=== PATIENT | female | born 1950 | race Caucasian/White ===

== ENCOUNTER → 2017-12-29 10:19 | Outpatient (CLI) | payer MEDICARE, OTHER, SELFPAY ==
[2017-12-29 12:18] LABS: Free T3 2.5 pg/mL (2.18-3.98); T4 Free Direct 0.88 ng/dL (0.76-1.46); Thyroid Stim Hormone (TSH) 6.57 uIU/mL (0.358-3.74)
== END ==
PROVIDERS: Family Provider Internal Medicine; PCP Internal Medicine; Referring Provider Nurse Practitioner; Visit Provider Nurse Practitioner
DX: E07.9 Disorder of thyroid, unspecified (principal)
CPT/HCPCS: 36415; 84439; 84443; 84481

== ENCOUNTER → 2018-05-27 11:00 | Outpatient (CLI) | payer MEDICARE, OTHER, SELFPAY ==
[2018-01-05 10:31] VITALS: BMI 34.0
[2018-05-27 12:51] LABS: Free T3 2.4 pg/mL (2.18-3.98); T4 Free Direct 1.04 ng/dL (0.76-1.46); Thyroid Stim Hormone (TSH) 2.13 uIU/mL (0.358-3.74)
== END ==
PROVIDERS: Family Provider Internal Medicine; PCP Internal Medicine; Referring Provider Nurse Practitioner; Visit Provider Nurse Practitioner
DX: E03.9 Hypothyroidism, unspecified (principal); E07.9 Disorder of thyroid, unspecified
CPT/HCPCS: 36415; 84439; 84443; 84481

== ENCOUNTER → 2019-10-01 09:34 | Outpatient (CLI) | payer MEDICARE, OTHER, SELFPAY ==
[2019-10-01 09:05] VITALS: BMI 34.1
[2019-10-01 12:41] LABS: ALB/GLOB Ratio 0.9 RATIO (0.9-2.4); AST(SGOT) 22 U/L (15-37); Alanine Aminotransfer ALT/SGPT 28 U/L (13-56); Alkaline Phosphatase 82 U/L (45-117); Anion Gap 6 (5-15); BUN 14 mg/dL (7-18); Chloride 101 mmol/L (98-107); Cholesterol 228 mg/dL (200); Creatinine, Serum 0.82 mg/dL (0.55-1.02); EST Glomerular Filtration Rate 73 mL/min (>60); Est Glom Filt Rate - Afr Amer 89 mL/min (>60); Globulin 4.3 g/dL (2.2-4.2); Glucose 221 mg/dL (74-106); High Density Lipoprotein 49 mg/dL; Potassium 4.4 mmol/L (3.5-5.1); Protein, Total 8.3 g/dL (6.4-8.2); Sodium Level 134 mmol/L (136-145); T4 Free Direct 1.09 ng/dL (0.76-1.46); Thyroid Stim Hormone (TSH) 3.47 uIU/mL (0.358-3.74); Triglycerides 280 mg/dL; Very Low Density Lipoprotein 56 mg/dL (5-40)
[2019-10-03 13:45] LABS: Vitamin D,25 Hydroxy 32.1 ng/mL
== END ==
PROVIDERS: PCP Internal Medicine; Referring Provider Internal Medicine Endocrinology, Diabetes & Metabolism; Visit Provider Internal Medicine Endocrinology, Diabetes & Metabolism
DX: E07.9 Disorder of thyroid, unspecified (principal); E03.8 Other specified hypothyroidism; E06.3 Autoimmune thyroiditis; E55.9 Vitamin D deficiency, unspecified; I10 Essential (primary) hypertension; Z82.49 Family history of ischemic heart disease and other diseases of the circulatory system
CPT/HCPCS: 36415; 80053; 80061; 82306; 84439; 84443

== ENCOUNTER → 2020-08-29 11:02 | Outpatient (CLI) | payer MEDICARE, OTHER, SELFPAY ==
[2020-08-29 10:26] VITALS: BMI 34.0
[2020-08-29 12:16] LABS: Absolute Lymphocyte Count 1.29 X10^3/uL (0.83-4.51); Absolute Neutrophil Count 13.3 X10^3/uL (2.0-7.7); Basophil# 0.07 X10^3/uL; Basophil% 0.5 % (0-1); Eosinophil# 0.09 X10^3/uL; Eosinophils% 0.6 % (0-5); Hematocrit 45.7 % (37-47); Hemoglobin 14.6 g/dL (12.0-15.0); Lymphocyte # 1.29 X10^3/ul (0.83-4.51); Lymphocyte % 8.3 % (19-41); Mean Corp Hgb Conc 31.9 g/dL (32-36); Mean Corpuscular Volume 87.7 fL (81-99); Mean Platelet Vol. 11.7 fl (6.2-12.0); Monocyte# 0.69 X10^3/uL; Monocyte% 4.4 % (0-10); NRBC Flagged by Analyzer 0 % (0-5); Neutrophil % 85.6 % (47-70); POSITIVE COUNT YES; RBC Distribution Width CV 15.4 % (11.6-14.6); RBC Distribution Width SD 49.5 fl (35.1-43.9); Red Blood Count 5.21 M/mm3 (4.2-5.4); White Blood Count 15.5 K/mm3 (4.4-11.0)
[2020-08-29 12:31] LABS: Differential Indicated SCAN CRITERIA MET
[2020-08-29 12:56] LABS: AST(SGOT) 21 U/L (15-37); Alanine Aminotransfer ALT/SGPT 23 U/L (13-56); Albumin, Serum 4.1 g/dL (3.2-5.0); Alkaline Phosphatase 82 U/L (45-117); Anion Gap 7 (5-15); BUN 12 mg/dL (7-18); BUN/Creat Ratio 14.8 RATIO (10-20); Calcium,Total 9.5 mg/dL (8.5-10.1); Chloride 102 mmol/L (98-107); Creatinine, Serum 0.81 mg/dL (0.55-1.02); EST Glomerular Filtration Rate 74 mL/min (>60); Est Glom Filt Rate - Afr Amer 90 mL/min (>60); Globulin 4.1 g/dL (2.2-4.2); Glucose 139 mg/dL (74-106); Potassium 4.4 mmol/L (3.5-5.1); Protein, Total 8.2 g/dL (6.4-8.2); Sodium Level 136 mmol/L (136-145); T4 Free Direct 1.16 ng/dL (0.76-1.46); Thyroid Stim Hormone (TSH) 2.53 uIU/mL (0.358-3.74)
[2020-08-29 13:09] LABS: Platelet Estimate MKD INC (ADEQ); Red Cell Morphology NORM C+C NORMAL (NORM C&C)
[2020-08-29 13:20] LABS: Hemoglobin A1c 7.3 % (3.8-5.6)
[2020-08-29 13:30] LABS: Platelet Count 1113 K/mm3 (150-450)
[2020-09-01 12:38] LABS: Pathologist Review Reviewed
== END ==
PROVIDERS: PCP Internal Medicine; Referring Provider Internal Medicine Endocrinology, Diabetes & Metabolism; Visit Provider Internal Medicine Endocrinology, Diabetes & Metabolism
DX: E03.8 Other specified hypothyroidism (principal); E06.3 Autoimmune thyroiditis; R30.0 Dysuria; E10.51 Type 1 diabetes mellitus with diabetic peripheral angiopathy without gangrene; I70.209 Unspecified atherosclerosis of native arteries of extremities, unspecified extremity
CPT/HCPCS: 36415; 80053; 83036; 84439; 84443; 85025; 87086; 87088

== ENCOUNTER → 2020-09-05 07:19 | Outpatient (CLI) | payer MEDICARE, OTHER, SELFPAY ==
[2020-09-03 09:09] VITALS: BMI 31.1
[2020-09-03 16:55] VITALS: BMI 31.1
--- NOTE | 2020-09-05 07:19 | US_ITS ---
STUDY: ABDOMINAL ULTRASOUND REASON FOR EXAM: Female, 69 years old. LEUKOCYTOSIS TECHNIQUE: Transabdominal ultrasound was performed with real-time and static aguielra scale imaging. TECHNICAL QUALITY: Adequate. COMPARISON: None. FINDINGS: Liver: The liver measures 17.4 cm. There is increased echogenicity consistent with fatty infiltration. The bile ducts are within normal limits. There is hepatic color flow. The direction of portal flow is hepatopetal. There is no demonstrated mass lesion. Portal vein measurement: Gallbladder: The patient is status post cholecystectomy. Common Bile Duct (C.B.D.): The common bile duct measures 4.7 mm. Pancreas: Normal size of the head, body and tail of the pancreas. There is normal echogenicity of the pancreas. There is no demonstrated pancreatic mass or cyst. Spleen: There is splenomegaly. The spleen measures 14.6 cm. Right Kidney: Normal size of the right kidney. The right kidney measures 11.6 x 5 x 4.1 cm. Normal renal cortex. The right cortex measures 1.7 cm. There is no demonstrated renal mass or cyst. There is no right hydronephrosis, there are nonobstructing 3 mm stones.. Left Kidney: Normal size of the left kidney. The left kidney measures 11.6 x 5.6 x 4.1 cm. Normal renal cortex. The left cortex measures 1.3 cm. There is no demonstrated renal mass or cyst. There is no left hydronephrosis, there are nonobstructing 2 and 3 mm stones.. Aorta: Tapers normally I.V.C.: The IVC is patent. There is no ascites. US/Abdomen Complete IMPRESSION: Fatty liver, no discrete lesion Nonspecific splenomegaly with granulomatous calcifications. Bilateral nonobstructing nephrolithiasis Previous cholecystectomy Electronically Signed: Larry Vera MD at 9:48 EDT , Service support ,
--- NOTE | 2020-09-05 07:19 | US_ITS ---
STUDY: ULTRASOUND OF THE FEMALE PELVIS - COMPLETE REASON FOR EXAM: Female, 69 years old. LEUKOCYTOSIS LMP: Unknown. TECHNIQUE: Transabdominal TECHNICAL QUALITY: Adequate. COMPARISON: None. FINDINGS: The uterus is anteverted and is in a midline position. The uterus measures 5.9 x 2.2 x 4.6 cm. Normal uterine cervix. The endometrium measures 3 mm in thickness, and is hyperechoic. There is no demonstrated endometrial mass. There is no demonstrated myometrial mass. I.U.D. - The patient does not have an I.U.D. Neither ovary visualized There is no fluid in the cul-de-sac. The pre void volume of the bladder was 368 ml. The post void volume of the bladder was less than 10 ml. Polycystic ovary disease: No. US/Pelvic (Non ) IMPRESSION: Sonographically normal uterus, and endometrium No suspicious adnexal mass or free fluid Electronically Signed: Larry Vera MD at 12:46 EDT , Service support ,
== END ==
PROVIDERS: PCP Specialist; Referring Provider Internal Medicine Medical Oncology; Visit Provider Internal Medicine Medical Oncology
DX: D47.3 Essential (hemorrhagic) thrombocythemia (principal); D72.829 Elevated white blood cell count, unspecified
CPT/HCPCS: 76700; 76856

== ENCOUNTER 2020-09-11 15:46 | Inpatient (IN) | payer MEDICARE, OTHER, SELFPAY ==
[2020-09-03 16:55] VITALS: BMI 31.1
[2020-09-11] VITALS (9 sets, daily range): BP systolic 142–187; BP diastolic 67–98; PULSE 78–91; RESP 14–18; TEMP 36.5–36.8; O2SAT 97–98; BMI 31.1; BMI 30.9
--- NOTE | 2020-09-11 16:31 | CT_ITS ---
STUDY: CT BRAIN WITHOUT CONTRAST REASON FOR EXAM: Female, 69 years old. headache RADIATION DOSAGE (If Supplied By Facility): CTDIvol = ( 38.43 ) mGy, DLP = ( 683.87 ) mGycm TECHNIQUE: Transaxial CT imaging of the brain was performed without administration of intravenous contrast material. Individualized dose optimization techniques were used for this CT. COMPARISON: No relevant priors. FINDINGS: Intracranial atherosclerosis. Normal soft tissue structures. Normal calvarium. There is mild cerebral atrophy with widening of the extra-axial spaces and ventricular dilatation. Normal white matter tracts of the cerebral hemispheres. Normal basal ganglia and thalami. Normal brainstem. Normal cerebellum. There is no intracranial hemorrhage. There are no findings of an acute ischemic infarction. Normal visualized paranasal sinuses. CT/Brain/Head without Contrast IMPRESSION: No acute disease Electronically Signed: Pradeep Park MD at 17:09 EDT , Service support ,
--- NOTE | 2020-09-11 16:32 | EKG12_ITS ---
Test Reason : WEAKNESS Blood Pressure : / mmHG Vent. Rate : 084 BPM Atrial Rate : 084 BPM P-R Int : 176 ms QRS Dur : 092 ms QT Int : 388 ms P-R-T Axes : 064 054 067 degrees QTc Int : 458 ms Normal sinus rhythm Septal infarct , age undetermined Abnormal ECG Confirmed by JENNIFER STARKS, DARCY ([id number]), editorial clerk PARVIZ DELONG ([id number]) on 09/12/2020 1:03:24 PM Referred By: FAYE Confirmed By:DARCY RODRIGUEZ MD
--- NOTE | 2020-09-11 16:34 | NURSING ---
NO OLD EKGS
[2020-09-11 16:52] LABS: Absolute Lymphocyte Count 0.93 X10^3/uL (0.83-4.51); Absolute Neutrophil Count 12.2 X10^3/uL (2.0-7.7); Basophil# 0.06 X10^3/uL; Basophil% 0.4 % (0-1); Eosinophil# 0.08 X10^3/uL; Eosinophils% 0.6 % (0-5); Hematocrit 42.8 % (37-47); Lymphocyte # 0.93 X10^3/ul (0.83-4.51); Lymphocyte % 6.6 % (19-41); Mean Corp Hgb Conc 32.7 g/dL (32-36); Mean Corpuscular Hgb 27.9 pg (27.0-32.0); Mean Corpuscular Volume 85.4 fL (81-99); Mean Platelet Vol. 11.5 fl (6.2-12.0); Monocyte% 5.6 % (0-10); NRBC Flagged by Analyzer 0 % (0-5); Neutrophil # 12.23 X10^3/uL (2.7-7.7); Neutrophil % 86.3 % (47-70); POSITIVE COUNT YES; POSITIVE MORPHOLOGY YES; RBC Distribution Width CV 15.4 % (11.6-14.6); RBC Distribution Width SD 47.9 fl (35.1-43.9); Red Blood Count 5.01 M/mm3 (4.2-5.4); White Blood Count 14.2 K/mm3 (4.4-11.0)
--- NOTE | 2020-09-11 16:52 | EX.ED.DYSGE1 ---
HPI History of Present Illness Chief Complaint: Weakness Informant: patient Onset/Context/Timing Onset: Days Context: Gradual Onset Current Severity: Moderate Maximum Severity: Moderate Narrative Narrative: Patient presents with generalized weakness and not feeling well. Patient states of the last month she had multiple UTIs. She has been on Cipro twice and is currently on Pen-Vee K. She does have a few days left of this antibiotic. Patient states she was recently seen by Dr. Robin for her hypothyroidism. Labs at that time revealed low platelets and a high white count. She was seen by Dr. Hurst from hematology. She did have some blood work and ultrasounds performed. She is scheduled for follow-up next week. Patient states today she does feels ill but has a hard time explaining what specifically does not feel right. She states at times she will not feel right in the head and her arms will feel tingly. She denies chest pain or shortness of breath. She had some mild nausea today but no vomiting or diarrhea. [facility] Medical History Diabetes type 2, controlled Elbow fracture Facial bone fracture Heart murmur HTN (hypertension) Hyperlipidemia Hypothyroidism Knee fracture Neuropathy Obesity Psoriasis Thrombocytosis Home Medications aspirin 81 mg tablet,delayed release 81 mg PO DAILY 01/05/18 [History Last Taken Unknown] enalapril maleate 10 mg tablet 10 mg PO DAILY 01/05/18 [History Last Taken Unknown] levothyroxine 50 mcg tablet See Rx Instructions PO .q week #138 tab 10/01/19 [Rx Last Taken Unknown] ergocalciferol (vitamin D2) 50 mcg (2,000 unit) capsule 50 mcg PO DAILY #1 cap 10/03/19 [Rx Last Taken Unknown] penicillin V potassium 250 mg tablet 250 mg PO BID #28 tab 09/01/20 [Rx Last Taken Unknown] calcitriol 3 mcg/gram topical ointment 1 applic TOPICAL BID 09/03/20 [History Last Taken Unknown] clobetasol 0.05 % lotion 1 applic TOPICAL DAILY 09/03/20 [History Last Taken Unknown] clobetasol 0.05 % shampoo 1 applic TOPICAL DAILY 09/03/20 [History Last Taken Unknown] halobetasol propionate 0.05 % topical cream 1 applic TOPICAL DAILY 09/03/20 [History Last Taken Unknown] Allergy/AdvReac Type Severity Reaction Status Date / Time codeine Allergy Severe Unknown Verified 09/11/20 15:51 metformin AdvReac Severe diarrhea Verified 09/11/20 15:51 Family History Grandmother Diabetes Father Heart disease High cholesterol Surgical History Hx of cholecystectomy Previous back surgery Social History Smoking Status: Never smoker second hand exposure: No alcohol intake: current alcohol intake frequency: a few times a month substance use type: does not use ROS ROS ED Constitutional Constitutional ED: Denies chills or fever(s) Eyes Eyes: Denies change in vision ENT ENT ED: Denies sore throat Cardiovascular Cardiovascular: Denies chest pain Respiratory/Chest Respiratory/Chest: Denies cough or dyspnea Gastrointestinal Gastrointestinal: Reports nausea; Denies abdominal pain, diarrhea or vomiting Genitourinary Genitourinary ED: Denies dysuria Musculoskeletal Musculoskeletal: Reports myalgias; Denies back pain Integumentary Denies rash Neurologic Neurologic: Denies headache(s) or weakness Psychiatric Psychiatric: Denies anxiety or depression Endocrine Endocrinology: Denies polydipsia or polyuria Allergic/Immunologic Allergic/Immunologic ED: Denies urticaria EXAM Physical Exam Const Vital Signs: 09/11/20 15:48 09/11/20 16:47 09/11/20 17:48 Temperature 97.7 F L Temperature Source Temporal Pulse Rate 86 83 Respiratory Rate 14 17 Respiratory Effort Normal Non-Labored Blood Pressure 183/98 H 187/76 H Blood Pressure Mean 126 113 Pulse Ox 97 97 Oxygen Delivery Method Room Air Room Air 09/11/20 19:19 09/11/20 19:47 Temperature Temperature Source Pulse Rate 78 78 Respiratory Rate 18 16 Respiratory Effort Blood Pressure 171/87 H 142/67 H Blood Pressure Mean 115 92 Pulse Ox 97 98 Oxygen Delivery Method Room Air Room Air Positive well nourished and well developed General Appearance ED: well developed HEENT Reports normocephalic and head/scalp atraumatic Eyes PERRL and EOMs intact bilaterally Neck supple Chest Wall inspection of chest normal and palpation of chest normal Resp normal respiratory effort and clear to auscultation bilaterally Cardio regular rate and regular rhythm Heart Sounds: murmur GI normal to inspection, nondistended, normoactive bowel sounds Palpation: soft Extremity normal to inspection Neuro oriented x3 and no sensory deficits noted Sensorium / Orientation: alert Motor Exam: strength 5/5 throughout Psych mental status grossly normal Skin no rashes or lesions noted MDM MDM MDM Narrative Medical decision making narrative: Blood work and EKG are initiated. Lab Data Attestation: I reviewed the patient's lab results. Labs: Laboratory Results - last 24 hr 09/11/20 09/11/20 09/11/20 16:24 16:40 16:40 WBC 14.2 H RBC 5.01 Hgb 14.0 Hct 42.8 MCV 85.4 MCH 27.9 MCHC 32.7 RDW Std Deviation 47.9 H RDW Coeff of Lucas 15.4 H Plt Count 1080 H* MPV 11.5 Immature Gran % (Auto) 0.500 Neut % (Auto) 86.3 H Lymph % (Auto) 6.6 L [place] % (Auto) 5.6 Eos % (Auto) 0.6 Baso % (Auto) 0.4 Absolute Neuts (auto) 12.2 H Absolute Lymphs (auto) 0.93 Nucleated RBC % 0 Differential Comment SCANNED Diff Path Review May foll Plt Morphology Comment GIANT PT 14.3 INR 1.2 APTT 35.5 Sodium Potassium Chloride Carbon Dioxide Anion Gap BUN Creatinine Estim Creat Clear Calc Est GFR (MDRD) Af Amer Est GFR (MDRD) Non-Af BUN/Creatinine Ratio Glucose Calcium Total Bilirubin Direct Bilirubin AST ALT Alkaline Phosphatase Total Protein Albumin Globulin TSH Urine Color Yellow Urine Clarity Clear Urine pH 6.0 Ur Specific [place] 1.010 Urine Protein Negative Urine Glucose (UA) Normal Urine Ketones 5 H Urine Occult Blood Negative Urine Nitrite Negative Urine Bilirubin Negative Urine Urobilinogen Normal Ur Leukocyte Esterase 100 H Urine RBC 0 SEEN Urine WBC 5-10 SEEN Ur Squamous Epith Cells 0-5 SEEN Urine Bacteria 0 SEEN Urine Mucus 0 SEEN 09/11/20 16:40 WBC RBC Hgb Hct MCV MCH MCHC RDW Std Deviation RDW Coeff of Lucas Plt Count MPV Immature Gran % (Auto) Neut % (Auto) Lymph % (Auto) [place] % (Auto) Eos % (Auto) Baso % (Auto) Absolute Neuts (auto) Absolute Lymphs (auto) Nucleated RBC % Differential Comment Diff Path Review Plt Morphology Comment PT INR APTT Sodium 129 L Potassium 4.1 Chloride 99 Carbon Dioxide 24.0 Anion Gap 6 BUN 13 Creatinine 0.87 Estim Creat Clear Calc 60.18 Est GFR (MDRD) Af Amer 83 Est GFR (MDRD) Non-Af 69 BUN/Creatinine Ratio 15.0 Glucose 145 H Calcium 9.1 Total Bilirubin 0.40 Direct Bilirubin 0.14 AST 22 ALT 23 Alkaline Phosphatase 72 Total Protein 8.0 Albumin 4.1 Globulin 3.9 TSH 2.76 Urine Color Urine Clarity Urine pH Ur Specific [place] Urine Protein Urine Glucose (UA) Urine Ketones Urine Occult Blood Urine Nitrite Urine Bilirubin Urine Urobilinogen Ur Leukocyte Esterase Urine RBC Urine WBC Ur Squamous Epith Cells Urine Bacteria Urine Mucus Radiography Diagnostic Testing: Radiology Impression Brain CT 09/11/20 16:31 IMPRESSION: No acute disease Electronically Signed: Pradeep Park MD at 17:09 EDT , Service support , EKG Initial EKG: Attestation: I personally reviewed and interpreted this EKG as follows: Interpretation: Sinus Rhythm (Sinus at 84 with no acute ischemia.) Treatment and Re-Evaluation Comments:: On repeat evaluation patient's blood pressure remained elevated. Test results are discussed with her. With her drop in sodium she was given a liter of IV fluid and a dose of labetalol for blood pressure control. On repeat examination nursing states that patient just became very shaky. She had just eaten and her blood sugar is 200. Blood pressure is climbing again. At this time patient does not feel safe going home. She feels weak and shaky all over. I will speak with hospitalist regarding admission. I did speak with hematology regarding her continued abnormal labs. They stated that other than ensuring she is taking baby aspirin they had no other recommendations. Discharge Plan Triage Chief Complaint: Weakness ED Provider: Gerri Merino Dx/Rx/DC Orders Clinical Impression: Generalized weakness Prescriptions: No Action enalapril maleate 10 mg tablet 10 mg PO DAILY RF: 0 aspirin 81 mg tablet,delayed release (DR/EC) 81 mg PO DAILY RF: 0 halobetasol propionate 0.05 % cream 1 applic topical DAILY RF: 0 clobetasol [Clobex] 0.05 % lotion 1 applic topical DAILY RF: 0 calcitriol 3 mcg/gram ointment 1 applic topical BID RF: 0 clobetasol 0.05 % shampoo 1 applic topical DAILY RF: 0 levothyroxine 50 mcg tablet See Rx Instructions PO .q week Qty: 138 RF: 3 ergocalciferol (vitamin D2) 50 mcg (2,000 unit) capsule 50 mcg PO DAILY Qty: 1 RF: 0 penicillin V potassium 250 mg tablet 250 mg PO BID Qty: 28 RF: 0 Referrals: Sabra Galeano [Other] Disposition Disposition: Acute Care Hospital [facility]
[2020-09-11 16:53] LABS: Bacteria 0 SEEN /hpf (None Seen); Mucous, Urine 0 SEEN /hpf (<or=2+); Red Blood Cells-Urine 0 SEEN /hpf (0-5)
[2020-09-11 17:02] LABS: Glucose, Dipstick Normal (Normal); Ketone-Dipstick 5 mg/dl (Negative); Leukocyte Esterase-Dipstick 100 /ul (Negative); Nitrite-Dipstick Negative (Negative); Occult Blood-Urine Negative /ul (Negative); Protein-Dipstick Negative (Negative); Urine Bilirubin Dipstick Negative (Negative); Urine Urobilinogen Normal (Normal)
[2020-09-11 17:05] LABS: Color, Urine Yellow (Yellow); Urine Clarity Clear (Clear)
[2020-09-11 17:08] LABS: Squamous Epithelial Cells - UA 0-5 SEEN /hpf (5-10); White Blood Cells 5-10 SEEN /hpf (0-5)
[2020-09-11 17:12] LABS: AST(SGOT) 22 U/L (15-37); Alanine Aminotransfer ALT/SGPT 23 U/L (13-56); Albumin, Serum 4.1 g/dL (3.2-5.0); Alkaline Phosphatase 72 U/L (45-117); Anion Gap 6 (5-15); BUN 13 mg/dL (7-18); Bilirubin, Direct 0.14 mg/dL (0.00-0.30); Calcium,Total 9.1 mg/dL (8.5-10.1); Chloride 99 mmol/L (98-107); Creatinine, Serum 0.87 mg/dL (0.55-1.02); EST Glomerular Filtration Rate 69 mL/min (>60); Est Glom Filt Rate - Afr Amer 83 mL/min (>60); Estimated Creatinine Clearance 60.18 ml/min; Globulin 3.9 g/dL (2.2-4.2); Glucose 145 mg/dL (74-106); Potassium 4.1 mmol/L (3.5-5.1); Sodium Level 129 mmol/L (136-145); Thyroid Stim Hormone (TSH) 2.76 uIU/mL (0.358-3.74)
[2020-09-11 17:29] LABS: International Normalized Ratio 1.2; Partial Thromboplast Time 35.5 Seconds (24.1-36.2); Prothrombin Time (Protime)PT. 14.3 SECONDS (11.7-14.9)
[2020-09-11 17:33] LABS: Differential Indicated SCAN CRITERIA MET; Platelet Count 1080 K/mm3 (150-450)
[2020-09-11 17:36] LABS: Differential Comment SCANNED
[2020-09-11 17:37] LABS: Platelet Morphology GIANT
[2020-09-11] MEDS: 0.9% Normal Saline 1,000 ML 999 ML IV (19:19)
[2020-09-11] MEDS: Labetalol (Prefilled) 20 MG/4 ML 10 MG IV (19:19)
[2020-09-11 20:11] LABS: Bedside Glucose 212 mg/dL (70-110)
--- NOTE | 2020-09-11 20:16 | HP.PCM.HOS_ITS ---
HPI - General General Date of Admission: 09/11/20 Date of Service: 09/11/20 Chief Complaint: Lightheadedness, dizziness, weakness, body aches. 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 Hurst, placed on ASA at that time with outpatient work-up pending with planned follow-up with onset worsening generalized fatigue, malaise, body aches in addition to lightheadedness and dizziness prompting ED evaluation. Work-up in the ED included T 97.7, heart rate 86, BP 183/98, respiratory rate 14, 97% room air, CBC with WC 14.2, hemoglobin 14, platelet 1080 with left shift, unremarkable coags, CMP w/ Na 129, glucose 145, UA not marked appearing, CT brai n with no acute intracranial findings, EKG with SR without acute evidence of ischemia. [facility] Medical History (Updated 09/11/20 @ 21:[address] Melania Corrales MD) Diabetes type 2, controlled Elbow fracture Facial bone fracture Heart murmur HTN (hypertension) Hyperlipidemia Hypothyroidism Knee fracture Neuropathy Obesity Psoriasis Thrombocytosis Home Medications aspirin 81 mg tablet,delayed release 81 mg PO DAILY 01/05/18 [History Last Taken 09/11/20] enalapril maleate 10 mg tablet 10 mg PO DAILY 01/05/18 [History Last Taken 09/11/20] levothyroxine 50 mcg tablet See Rx Instructions PO .q week #138 tab 10/01/19 [Rx Last Taken 09/11/20] ergocalciferol (vitamin D2) 50 mcg (2,000 unit) capsule 50 mcg PO DAILY #1 cap 10/03/19 [Rx Last Taken 09/10/20] penicillin V potassium 250 mg tablet 250 mg PO BID #28 tab 09/01/20 [Rx Last Taken 09/11/20] calcitriol 3 mcg/gram topical ointment 1 applic TOPICAL BID 09/03/20 [History Last Taken Unknown] clobetasol 0.05 % lotion 1 applic TOPICAL DAILY 09/03/20 [History Last Taken Unknown] clobetasol 0.05 % shampoo 1 applic TOPICAL DAILY 09/03/20 [History Last Taken Unknown] halobetasol propionate 0.05 % topical cream 1 applic TOPICAL DAILY 09/03/20 [History Last Taken Unknown] Allergy/AdvReac Type Severity Reaction Status Date / Time codeine Allergy Severe Unknown Verified 09/11/20 15:51 metformin AdvReac Severe diarrhea Verified 09/11/20 15:51 Family History (Updated 09/11/20 @ 21:[address] Melania Corrales MD) Grandmother Diabetes Father Heart disease High cholesterol Mother Heart disease Surgical History (Updated 09/11/20 @ 21:[address] Melania Corrales MD) Hx of cholecystectomy Previous back surgery S/P tonsillectomy and adenoidectomy Social History (Updated 09/11/20 @ 21:[address] Melania Corrales MD) household members: spouse Smoking Status: Never smoker second hand exposure: No alcohol intake: current alcohol intake frequency: a few times a month details: Rare. substance use type: does not use ROS ROS Narrative Admission Review of Systems: CONSTITUTIONAL: No weight loss, fever, chills, + weakness or fatigue. HEENT: Eyes: No visual loss, blurred vision, double vision or yellow sclerae. Ears, Nose, Throat: No hearing loss, sneezing, congestion, runny nose or sore throat. SKIN: No rash or itching, lesions, wounds. CARDIOVASCULAR: + Near syncope, LH/Dizziness. No palpitations, edema, orthopnea, syncopal events. RESPIRATORY: No shortness of breath, cough or sputum, wheezing, hemoptysis. GASTROINTESTINAL: No anorexia, nausea, vomiting or diarrhea, abdominal pain, melena, BRBPR. GENITOURINARY: + Urinary frequency, No dysuria, retention. NEUROLOGICAL: + LH, dizziness, No headache, paralysis, ataxia, numbness or tingling in the extremities, focal weakness, change in bowel or bladder control, seizure. MUSCULOSKELETAL: + muscle, back pain, joint pain or stiffness. HEMATOLOGIC: No anemia, bleeding or bruising. LYMPHATICS: No enlarged nodes. No history of splenectomy. PSYCHIATRIC: No history of depression or anxiety. ENDOCRINOLOGIC: No reports of sweating, cold or heat intolerance. No polyuria or polydipsia. ALLERGIES: + history of asthma, hives, eczema or rhinitis. Vital Signs Vital Signs Vital Signs: 09/11/20 15:48 09/11/20 16:47 09/11/20 17:48 Temperature 97.7 F L Temperature Source Temporal Pulse Rate 86 83 Respiratory Rate 14 17 Respiratory Effort Normal Non-Labored Blood Pressure 183/98 H 187/76 H Blood Pressure Mean 126 113 Pulse Ox 97 97 Oxygen Delivery Method Room Air Room Air 09/11/20 19:19 09/11/20 19:47 09/11/20 20:10 Temperature Temperature Source Pulse Rate 78 78 91 Respiratory Rate 18 16 17 Respiratory Effort Blood Pressure 171/87 H 142/67 H 180/81 H Blood Pressure Mean 115 92 114 Pulse Ox 97 98 98 Oxygen Delivery Method Room Air Room Air Room Air Weight Weight: 198 lb 6.656 oz Body Mass Index (BMI) 31.1 Physical Exam Narrative Physical Examination: General: Awake, alert, oriented x 3 and cooperative, seated upright in the ED bed in no apparent distress, fatigued appearing. Skin: Normal color, normal turgor, no icterus, no cyanosis. HEENT: AT/NC, EOMI, PERRLA, moderately dry MM, no carotid bruits or JVD noted. Lungs: CTA bilaterally, moderate effort, mild decrease BL bases, no rales, ronchi or wheezing. Heart: Regular rate and rhythm; no gallop, rub audible. Abdomen: Soft, obesity, NTTP, ND, normal BS, no HSM. Extremities: No cyanosis, clubbing, or edema. Neurological: Patient awake, alert, oriented as noted, cognitive function intact; pupils equally reactive to light and accommodation, cranial nerves II- XII grossly normal, moving all 4 extremities, no focal deficits, strength moder ately to severely globally decreased. Psychiatric: Affect appears fatigued, no acute evidence of depressive or anxiety feelings. Results Lab / Micro Data Result Diagrams: 09/11/20 16:40 09/11/20 16:40 Labs: Laboratory Results - last 24 hr 09/11/20 09/11/20 09/11/20 16:24 16:40 16:40 WBC 14.2 H RBC 5.01 Hgb 14.0 Hct 42.8 MCV 85.4 MCH 27.9 MCHC 32.7 RDW Std Deviation 47.9 H RDW Coeff of Lucas 15.4 H Plt Count 1080 H* MPV 11.5 Immature Gran % (Auto) 0.500 Neut % (Auto) 86.3 H Lymph % (Auto) 6.6 L [place] % (Auto) 5.6 Eos % (Auto) 0.6 Baso % (Auto) 0.4 Absolute Neuts (auto) 12.2 H Absolute Lymphs (auto) 0.93 Nucleated RBC % 0 Differential Comment SCANNED Diff Path Review May foll Plt Morphology Comment GIANT PT 14.3 INR 1.2 APTT 35.5 Sodium Potassium Chloride Carbon Dioxide Anion Gap BUN Creatinine Estim Creat Clear Calc Est GFR (MDRD) Af Amer Est GFR (MDRD) Non-Af BUN/Creatinine Ratio Glucose Calcium Total Bilirubin Direct Bilirubin AST ALT Alkaline Phosphatase Total Protein Albumin Globulin TSH Urine Color Yellow Urine Clarity Clear Urine pH 6.0 Ur Specific [place] 1.010 Urine Protein Negative Urine Glucose (UA) Normal Urine Ketones 5 H Urine Occult Blood Negative Urine Nitrite Negative Urine Bilirubin Negative Urine Urobilinogen Normal Ur Leukocyte Esterase 100 H Urine RBC 0 SEEN Urine WBC 5-10 SEEN Ur Squamous Epith Cells 0-5 SEEN Urine Bacteria 0 SEEN Urine Mucus 0 SEEN POC Glucose 09/11/20 09/11/20 16:40 20:05 WBC RBC Hgb Hct MCV MCH MCHC RDW Std Deviation RDW Coeff of Lucas Plt Count MPV Immature Gran % (Auto) Neut % (Auto) Lymph % (Auto) [place] % (Auto) Eos % (Auto) Baso % (Auto) Absolute Neuts (auto) Absolute Lymphs (auto) Nucleated RBC % Differential Comment Diff Path Review Plt Morphology Comment PT INR APTT Sodium 129 L Potassium 4.1 Chloride 99 Carbon Dioxide 24.0 Anion Gap 6 BUN 13 Creatinine 0.87 Estim Creat Clear Calc 60.18 Est GFR (MDRD) Af Amer 83 Est GFR (MDRD) Non-Af 69 BUN/Creatinine Ratio 15.0 Glucose 145 H Calcium 9.1 Total Bilirubin 0.40 Direct Bilirubin 0.14 AST 22 ALT 23 Alkaline Phosphatase 72 Total Protein 8.0 Albumin 4.1 Globulin 3.9 TSH 2.76 Urine Color Urine Clarity Urine pH Ur Specific [place] Urine Protein Urine Glucose (UA) Urine Ketones Urine Occult Blood Urine Nitrite Urine Bilirubin Urine Urobilinogen Ur Leukocyte Esterase Urine RBC Urine WBC Ur Squamous Epith Cells Urine Bacteria Urine Mucus POC Glucose 212 H Radiology Impression Brain CT 09/11/20 16:31 IMPRESSION: No acute disease Electronically Signed: Pradeep Park MD at 17:09 EDT , Service support , Assessment & Plan Assessment/Plan (1) Near syncope: PLAN: The patient is a 69 y/o F w/ PMHx: Chronic thrombocytosis on ASA, Psorisis, HTN, HLD, Hypothyroidism, Diabetes mellitus type II, Obesity with recent history of frequent UTIs over the last month, currently on PENVK with 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 Hurst, placed on ASA at that time with outpatient work-up pending with planned follow-up with onset worsening generalized fatigue, malaise, body aches in addition to lightheadedness and dizziness prompting ED evaluation. 1. Lightheadedness, Dizziness: Unclear etiololgy, EKG in ED w/ sinus rhythm without evidence of acute ischemia. Will place on a monitored bed, will obtain cardiac enzymes series and CXR as not obtained upon presentation, maintain on fall precautions, obtain admission orthostatic and AM orthostatic VS and increase hydration if appropriate, will obtain ECHO. PT/OT consultation to ascertain stability and discharge needs. 2. Acute Hyponatremia, Unclear specific etiology: Unclear if hypovolemic, TSH normal, will obtain mag, urine FeNa, urine and serum Osmolality, continue judicious IVFs in the interim. As noted #1 will obtain Orthostatic VS. 3. Thrombocytopenia, Unclear etiology: Admission Plts 1080, unclear etiology, following with Oncology/hematology outpatient with ongoing work-up, continue ASA, and as noted DVT prophylaxis. 4. Recent UTI, Unclear Organism: Will complete recently initiated PENVK. UA not remarkable upon current presentation. 5. Hypertension: Continue home regimen including lisinopril, PRN hydralazine. 6. Hyperlipidemia: Not on statin, defer to outpatient. 7. Hypothyroidism: Secondary to Leobardo's thyroiditis, TSH normal upon admission, continue synthroid supplementation. 8. DVT prophylaxis: SCDs, lovenox. Charges/Coding Visit Charges OBSV E&M: 47546 Initial observation care L3
[2020-09-11 21:31] LABS: Magnesium 1.8 mg/dL (1.6-2.6)
--- NOTE | 2020-09-11 21:46 | ECHOD_ITS ---
Reason For Study: Near Syncope Procedure This was a 2D Doppler, Color Flow transthoracic echocardiogram. Exam performed portable in patient room. Left Ventricle Moderate concentric left ventricular hypertrophy. The estimated ejection fraction is EF 55-60 %. Right Ventricle Normal right ventricle. Atria The left atrium is mildly enlarged. Normal right atrium. Mitral Valve The mitral papillary muscle appears thickened and/or calcified. There is moderate mitral annular calcification. Moderate (2+) mitral valve insufficiency. Tricuspid Valve Normal tricuspid valve. Trivial tricuspid valve insufficiency. Aortic Valve Mild focal aortic valve calcification. Mild aortic stenosis. Pulmonic Valve The pulmonic valve is not well visualized. Great Vessels Normal aortic root. Pericardium/Pleural No pericardial effusion. MMode/2D Measurements & Calculations LVIDd: 3.9 cm IVSd: 1.6 cm LVOT diam: 2.0 cm LVIDs: 2.4 cm LVPWd: 1.4 cm LVOT area: 3.0 cm2 FS: 38.8 % Ao root diam: 3.2 cm LAV(MOD-bp): 71.0 ml LA A4 area: 20.6 cm2 LA dimension: 3.7 cm LAV(MOD-bp) Indexed: 35.3 ml/m2 LAV(MOD-sp2): 65.8 ml LAV(MOD-sp4): 63.7 ml RA A4 area: 15.0 cm2 Time Measurements MV dec time: 0.18 sec Doppler Measurements & Calculations MV E max jasbir: 158.1 cm/sec Lat Peak E' Jasbir: 6.3 cm/sec Med Peak E' Jasbir: 5.0 cm/sec MV A max jasbir: 183.2 cm/sec E/E' lat: 25.0 E/E' med: 31.4 MV E/A: 0.86 MV V2 max: 220.5 cm/sec MV P1/2t max jasbir: 194.5 cm/sec Ao V2 max: 214.3 cm/sec MV max P.5 mmHg MV P1/2t: 69.2 msec Ao max P.4 mmHg MV V2 mean: 132.7 cm/sec MV dec slope: 823.8 cm/sec2 Ao V2 mean: 146.1 cm/sec MV mean P.1 mmHg Ao mean P.7 mmHg MV V2 VTI: 52.1 cm MVA(P1/2t): 3.2 cm2 Ao V2 VTI: 46.3 cm MVA(VTI): 1.7 cm2 HARPER(I,D): 1.9 cm2 HARPER(V,D): 1.8 cm2 LV V1 max: 130.0 cm/sec MR max jasbir: 569.4 cm/sec SV(LVOT): 87.2 ml LV V1 max P.8 mmHg MR max P.7 mmHg LV V1 mean P.6 mmHg LV V1 mean: 88.9 cm/sec LV V1 VTI: 28.7 cm PA V2 max: 123.3 cm/sec TR max jasbir: 286.2 cm/sec TR max P.8 mmHg ECHO/Echo Complete Interpretation Summary The estimated ejection fraction is EF 55-60 %. Moderate to severe concentric LVH Heavily calcified papillary muscle Moderate MR Grade #2 Diastolic Dysfunction MIld ,HARPER 1.9 cm2, Trivial tricuspid valve insufficiency. Ordering Physician: Melania Corrales Referring Physician: Out Of Town Doctor Performed By: Cheko Mathis RCS
[2020-09-11] MEDS: 0.9% Normal Saline 1,000 ML 100 ML IV (22:16)
--- NOTE | 2020-09-11 22:46 | RAD_ITS ---
STUDY: X-RAY CHEST REASON FOR EXAM: Female, 69 years old. Dyspnea TECHNIQUE: PA and lateral views of the chest. COMPARISON: None. FINDINGS: The lungs are clear and expanded. There is no demonstrated pleural abnormality. Normal size heart. Normal mediastinum and raisa. Normal visualized pulmonary arteries. Normal visualized aortic arch and descending thoracic aorta. Normal visualized thoracic spine. Normal visualized ribs, clavicles, and shoulders. There is no demonstrated abnormality of the visualized soft tissue structures of the upper abdomen. RAD/Chest PA and Lateral IMPRESSION: Normal x-ray examination of the chest. Electronically Signed: Mauro Garrido MD at 9:47 EDT Tel , Service support ,
[2020-09-11 22:51] LABS: Osmolality, Serum 282 mOsm/KG (280-301)
[2020-09-11] MEDS: Penicillin Vk 250 MG Tablet PO (23:26)
[2020-09-11] MEDS: Acetaminophen 325 MG Tablet 650 MG PO (23:27)
[2020-09-11] MEDS: Insulin Lispro 100 UNIT/ML INSULN.PEN SC (23:32)
[2020-09-11 23:37] LABS: Troponin-I HS 387.6 pg/mL (3.0-53.7)
[2020-09-11 23:40] LABS: Bedside Glucose 155 mg/dL (70-110)
[2020-09-11 23:50] LABS: Urine Sodium 35 mmol/L (Not Establ.)
[2020-09-12] VITALS (26 sets, daily range): BP systolic 132–175; BP diastolic 60–89; PULSE 73–96; RESP 14–20; TEMP 36.6–36.9; O2SAT 93–100
[2020-09-12 00:02] LABS: Creatinine, Urine (random) < 13.00 mg/dL (NO RANGE EST.)
[2020-09-12 00:07] LABS: Osmolality, Urine 120 mOsm/KG
[2020-09-12] MEDS: Enoxaparin 100 MG/ML Syringe 90 MG SC ×2 (00:33→06:56)
[2020-09-12] MEDS: Aspirin 325 MG Tablet PO (00:33)
[2020-09-12 01:30] LABS: Troponin-I HS 453.8 pg/mL (3.0-53.7)
--- NOTE | 2020-09-12 05:55 | EKG12_ITS ---
Test Reason : AM EKG Blood Pressure : / mmHG Vent. Rate : 080 BPM Atrial Rate : 080 BPM P-R Int : 178 ms QRS Dur : 094 ms QT Int : 418 ms P-R-T Axes : 051 027 073 degrees QTc Int : 482 ms Normal sinus rhythm Septal infarct , age undetermined Abnormal ECG When compared with ECG of 11-SEP-2020 17:11, MANUAL COMPARISON REQUIRED, DATA IS UNCONFIRMED Confirmed by JENNIFER STARKS, DARCY ([id number]), associate editor JULIO CÉSAR MACK ([id number]) on 09/17/2020 2:29:43 PM Referred By: MATT Confirmed By:DARCY RODRIGUEZ MD
[2020-09-12 05:56] LABS: Absolute Lymphocyte Count 1.54 X10^3/uL (0.83-4.51); Absolute Neutrophil Count 10.5 X10^3/uL (2.0-7.7); Basophil# 0.06 X10^3/uL; Basophil% 0.5 % (0-1); Eosinophil# 0.15 X10^3/uL; Eosinophils% 1.1 % (0-5); Hematocrit 40.2 % (37-47); Lymphocyte # 1.54 X10^3/ul (0.83-4.51); Lymphocyte % 11.7 % (19-41); Mean Corp Hgb Conc 32.3 g/dL (32-36); Mean Corpuscular Hgb 27.8 pg (27.0-32.0); Mean Corpuscular Volume 85.9 fL (81-99); Mean Platelet Vol. 11.7 fl (6.2-12.0); Monocyte# 0.84 X10^3/uL; Monocyte% 6.4 % (0-10); NRBC Flagged by Analyzer 0 % (0-5); Neutrophil # 10.48 X10^3/uL (2.7-7.7); POSITIVE COUNT YES; Platelet Count 1034 K/mm3 (150-450); RBC Distribution Width CV 15.9 % (11.6-14.6); RBC Distribution Width SD 49.5 fl (35.1-43.9); Red Blood Count 4.68 M/mm3 (4.2-5.4); White Blood Count 13.1 K/mm3 (4.4-11.0)
[2020-09-12 06:02] LABS: Differential Indicated SCAN CRITERIA MET
[2020-09-12 06:26] LABS: Platelet Morphology LARGE
[2020-09-12] MEDS: Levothyroxine 75 MCG Tablet PO (06:56)
[2020-09-12 07:06] LABS: Bedside Glucose 134 mg/dL (70-110)
[2020-09-12 07:21] LABS: AST(SGOT) 26 U/L (15-37); Alanine Aminotransfer ALT/SGPT 22 U/L (13-56); Albumin, Serum 3.4 g/dL (3.2-5.0); Alkaline Phosphatase 62 U/L (45-117); Anion Gap 7 (5-15); BUN 8 mg/dL (7-18); BUN/Creat Ratio 11.6 RATIO (10-20); Calcium,Total 8.4 mg/dL (8.5-10.1); Chloride 108 mmol/L (98-107); Creatinine, Serum 0.69 mg/dL (0.55-1.02); EST Glomerular Filtration Rate 90 mL/min (>60); Est Glom Filt Rate - Afr Amer 109 mL/min (>60); Estimated Creatinine Clearance 52.36 ml/min; Globulin 3.5 g/dL (2.2-4.2); Glucose 112 mg/dL (74-106); Potassium 4.1 mmol/L (3.5-5.1); Protein, Total 6.9 g/dL (6.4-8.2); Sodium Level 138 mmol/L (136-145)
[2020-09-12] MEDS: 0.9% Normal Saline 1,000 ML 100 ML IV ×2 (09:10→20:40)
[2020-09-12] MEDS: Penicillin Vk 250 MG Tablet PO ×2 (09:47→23:08)
[2020-09-12] MEDS: Lisinopril 10 MG Tablet PO (09:47)
[2020-09-12] MEDS: Aspirin E.C. 81 MG Tablet PO (09:47)
--- NOTE | 2020-09-12 09:50 | CON.PCM.CA_ITS ---
Assessment & Plan Assessment/Plan (1) Near syncope: (2) Thrombocytosis: (3) NSTEMI (non-ST elevated myocardial infarction): PLAN: 69-year-old patient with the long history of chronic thrombocytosis recently referred to food service lead and started on aspirin Also known to have history of hypertension, hypothyroidism, type 2 diabetes mellitus and frequent episodes of urinary tract infection and history of heart murmur. This presentation is with generalized weakness and near syncopal episode she does not have any active chest pain Cardiac examination showed S1-S2 regular she had an ejection systolic murmur heard in the aortic valve area The EKG showed normal sinus with possible age indeterminate septal infarction no significant ST?T abnormality noted Review of the record showed elevated series of high sensitive troponins and patient was treated with aspirin and Lovenox. Plan; 1. Bedside echocardiogram showed LV function preserved. 2. Based on her clinical presentation and significant elevation of high sens itive troponin likely she could have silent myocardial infarction with a history of type 2 diabetes mellitus I discussed the need to proceed with cardiac catheterization. Patient was given Lovenox this morning we will hold on Lovenox and will plan for cardiac cath this afternoon. 3. On review of the cardiac telemetry and monitor she remained in normal sinus rhythm. HPI Consult Data Date of Consult: 09/12/20 HPI Narrative Reason for Consultation: Elevated high sensitive troponin/non-STEMI HPI Narrative: JUSTIN GORE, is a 69 F who presents [facility] Medical History (Updated 09/12/20 @ 09:[address] Betty Alvarenga MD) Diabetes type 2, controlled Elbow fracture Facial bone fracture Heart murmur HTN (hypertension) Hyperlipidemia Hypothyroidism Knee fracture Neuropathy Obesity Psoriasis Splenomegaly Thrombocytosis Home Medications aspirin 81 mg tablet,delayed release 81 mg PO DAILY 01/05/18 [History Last Taken 09/11/20] enalapril maleate 10 mg tablet 10 mg PO BID 01/05/18 [History Last Taken 09/11/20] levothyroxine 50 mcg tablet See Rx Instructions PO .q week #138 tab 10/01/19 [Rx Last Taken 09/11/20] ergocalciferol (vitamin D2) 50 mcg (2,000 unit) capsule 50 mcg PO DAILY #1 cap 10/03/19 [Rx Last Taken 09/10/20] penicillin V potassium 250 mg tablet 250 mg PO BID #28 tab 09/01/20 [Rx Last Taken 09/11/20] calcitriol 3 mcg/gram topical ointment 1 applic TOPICAL BID 09/03/20 [History Last Taken Unknown] clobetasol 0.05 % lotion 1 applic TOPICAL DAILY 09/03/20 [History Last Taken Unknown] clobetasol 0.05 % shampoo 1 applic TOPICAL DAILY 09/03/20 [History Last Taken Unknown] halobetasol propionate 0.05 % topical cream 1 applic TOPICAL DAILY 09/03/20 [History Last Taken Unknown] Allergy/AdvReac Type Severity Reaction Status Date / Time codeine Allergy Severe Unknown Verified 09/11/20 15:51 metformin AdvReac Severe diarrhea Verified 09/11/20 15:51 ciprofloxacin [From Cipro] AdvReac Nausea Verified 09/12/20 01:16 Family History (Updated 09/11/20 @ 21:[address] Melania Corrales MD) Grandmother Diabetes Father Heart disease High cholesterol Mother Heart disease Surgical History Hx of cholecystectomy Previous back surgery S/P tonsillectomy and adenoidectomy Social History (Updated 09/11/20 @ 21:[address] Melania Corrales MD) household members: spouse Smoking Status: Never smoker second hand exposure: No alcohol intake: current alcohol intake frequency: a few times a month details: Rare. substance use type: does not use Physical Exam Narrative Patient seen and evaluated at bedside and discuss cardiac care plan with the [facility] nursing staff or medical team. She is alert orientated x3 She has no active symptoms of chest pain She complained of abdominal pain and recently seen by her primary care physician with a clinical diagnosis of recurrent UTI. Patient also had a history of heart murmur Cardiac exam S1-S2 is regular, ejection systolic murmur well heard in the aortic valve area There is no diastolic murmur, no pericardial rub Chest examination; normal auscultation bilateral. Examination lower extremity no clubbing no cyanosis lower extremity edema Examination of central nervous system no focal neurological deficit. Objective Data Vital Signs: Vital Signs Temp Pulse Resp BP Pulse Ox 98.1 F 79 18 165/78 H 96 09/12/20 09:40 09/12/20 09:40 09/12/20 09:40 09/12/20 09:40 09/12/20 09:40 Oxygen Delivery Method Room Air Weight: 197 lb 8.547 oz Body Mass Index (BMI) 30.9 Intake & Output: Intake and Output for Last 24 Hours 09/10/20 09/11/20 09/12/20 23:59 23:59 23:59 Intake Total 1000 / 1000 1000 / 1000 Output Total 400 / 400 Balance 1000 / 1000 600 / 600 Lab / Micro Data Result Diagrams: 09/12/20 05:10 09/12/20 05:10 Labs: Laboratory Results - last 24 hr 09/11/20 09/11/20 09/11/20 16:24 16:40 16:40 WBC 14.2 H RBC 5.01 Hgb 14.0 Hct 42.8 MCV 85.4 MCH 27.9 MCHC 32.7 RDW Std Deviation 47.9 H RDW Coeff of Lucas 15.4 H Plt Count 1080 H* MPV 11.5 Immature Gran % (Auto) 0.500 Neut % (Auto) 86.3 H Lymph % (Auto) 6.6 L Mathews % (Auto) 5.6 Eos % (Auto) 0.6 Baso % (Auto) 0.4 Absolute Neuts (auto) 12.2 H Absolute Lymphs (auto) 0.93 Nucleated RBC % 0 Differential Comment SCANNED Diff Path Review May foll Plt Morphology Comment GIANT PT 14.3 INR 1.2 APTT 35.5 Sodium Potassium Chloride Carbon Dioxide Anion Gap BUN Creatinine Estim Creat Clear Calc Est GFR (MDRD) Af Amer Est GFR (MDRD) Non-Af BUN/Creatinine Ratio Glucose Serum Osmolality Calcium Magnesium Total Bilirubin Direct Bilirubin AST ALT Alkaline Phosphatase Troponin I High Sens Total Protein Albumin Globulin Albumin/Globulin Ratio TSH Urine Color Yellow Urine Clarity Clear Urine pH 6.0 Ur Specific [place] 1.010 Urine Protein Negative Urine Glucose (UA) Normal Urine Ketones 5 H Urine Occult Blood Negative Urine Nitrite Negative Urine Bilirubin Negative Urine Urobilinogen Normal Ur Leukocyte Esterase 100 H Urine RBC 0 SEEN Urine WBC 5-10 SEEN Ur Squamous Epith Cells 0-5 SEEN Urine Bacteria 0 SEEN Urine Mucus 0 SEEN Urine Osmolality Ur Random Sodium Urine Creatinine POC Glucose 09/11/20 09/11/20 09/11/20 16:40 16:40 16:40 WBC RBC Hgb Hct MCV MCH MCHC RDW Std Deviation RDW Coeff of Lucas Plt Count MPV Immature Gran % (Auto) Neut % (Auto) Lymph % (Auto) Mathews % (Auto) Eos % (Auto) Baso % (Auto) Absolute Neuts (auto) Absolute Lymphs (auto) Nucleated RBC % Differential Comment Diff Path Review Plt Morphology Comment PT INR APTT Sodium 129 L Potassium 4.1 Chloride 99 Carbon Dioxide 24.0 Anion Gap 6 BUN 13 Creatinine 0.87 Estim Creat Clear Calc 60.18 Est GFR (MDRD) Af Amer 83 Est GFR (MDRD) Non-Af 69 BUN/Creatinine Ratio 15.0 Glucose 145 H Serum Osmolality 282 Calcium 9.1 Magnesium 1.8 Total Bilirubin 0.40 Direct Bilirubin 0.14 AST 22 ALT 23 Alkaline Phosphatase 72 Troponin I High Sens Total Protein 8.0 Albumin 4.1 Globulin 3.9 Albumin/Globulin Ratio TSH 2.76 Urine Color Urine Clarity Urine pH Ur Specific [place] Urine Protein Urine Glucose (UA) Urine Ketones Urine Occult Blood Urine Nitrite Urine Bilirubin Urine Urobilinogen Ur Leukocyte Esterase Urine RBC Urine WBC Ur Squamous Epith Cells Urine Bacteria Urine Mucus Urine Osmolality Ur Random Sodium Urine Creatinine POC Glucose 09/11/20 09/11/20 09/11/20 20:05 23:04 23:25 WBC RBC Hgb Hct MCV MCH MCHC RDW Std Deviation RDW Coeff of Lucas Plt Count MPV Immature Gran % (Auto) Neut % (Auto) Lymph % (Auto) Mathews % (Auto) Eos % (Auto) Baso % (Auto) Absolute Neuts (auto) Absolute Lymphs (auto) Nucleated RBC % Differential Comment Diff Path Review Plt Morphology Comment PT INR APTT Sodium Potassium Chloride Carbon Dioxide Anion Gap BUN Creatinine Estim Creat Clear Calc Est GFR (MDRD) Af Amer Est GFR (MDRD) Non-Af BUN/Creatinine Ratio Glucose Serum Osmolality Calcium Magnesium Total Bilirubin Direct Bilirubin AST ALT Alkaline Phosphatase Troponin I High Sens 387.6 H* Total Protein Albumin Globulin Albumin/Globulin Ratio TSH Urine Color Urine Clarity Urine pH Ur Specific [place] Urine Protein Urine Glucose (UA) Urine Ketones Urine Occult Blood Urine Nitrite Urine Bilirubin Urine Urobilinogen Ur Leukocyte Esterase Urine RBC Urine WBC Ur Squamous Epith Cells Urine Bacteria Urine Mucus Urine Osmolality Ur Random Sodium Urine Creatinine POC Glucose 212 H 155 H 09/11/20 09/11/20 09/11/20 23:30 23:30 23:30 WBC RBC Hgb Hct MCV MCH MCHC RDW Std Deviation RDW Coeff of Lucas Plt Count MPV Immature Gran % (Auto) Neut % (Auto) Lymph % (Auto) Mathews % (Auto) Eos % (Auto) Baso % (Auto) Absolute Neuts (auto) Absolute Lymphs (auto) Nucleated RBC % Differential Comment Diff Path Review Plt Morphology Comment PT INR APTT Sodium Potassium Chloride Carbon Dioxide Anion Gap BUN Creatinine Estim Creat Clear Calc Est GFR (MDRD) Af Amer Est GFR (MDRD) Non-Af BUN/Creatinine Ratio Glucose Serum Osmolality Calcium Magnesium Total Bilirubin Direct Bilirubin AST ALT Alkaline Phosphatase Troponin I High Sens Total Protein Albumin Globulin Albumin/Globulin Ratio TSH Urine Color Urine Clarity Urine pH Ur Specific [place] Urine Protein Urine Glucose (UA) Urine Ketones Urine Occult Blood Urine Nitrite Urine Bilirubin Urine Urobilinogen Ur Leukocyte Esterase Urine RBC Urine WBC Ur Squamous Epith Cells Urine Bacteria Urine Mucus Urine Osmolality 120 Ur Random Sodium 35 Urine Creatinine < 13.00 POC Glucose 09/12/20 09/12/20 09/12/20 00:42 05:10 05:10 WBC 13.1 H RBC 4.68 Hgb 13.0 Hct 40.2 MCV 85.9 MCH 27.8 MCHC 32.3 RDW Std Deviation 49.5 H RDW Coeff of Lucas 15.9 H Plt Count 1034 H* MPV 11.7 Immature Gran % (Auto) 0.300 Neut % (Auto) 80.0 H Lymph % (Auto) 11.7 L Mathews % (Auto) 6.4 Eos % (Auto) 1.1 Baso % (Auto) 0.5 Absolute Neuts (auto) 10.5 H Absolute Lymphs (auto) 1.54 Nucleated RBC % 0 Differential Comment Diff Path Review May foll Plt Morphology Comment LARGE PT INR APTT Sodium 138 Potassium 4.1 Chloride 108 H Carbon Dioxide 23.0 Anion Gap 7 BUN 8 Creatinine 0.69 Estim Creat Clear Calc 52.36 Est GFR (MDRD) Af Amer 109 Est GFR (MDRD) Non-Af 90 BUN/Creatinine Ratio 11.6 Glucose 112 H Serum Osmolality Calcium 8.4 L Magnesium Total Bilirubin 0.40 Direct Bilirubin AST 26 ALT 22 Alkaline Phosphatase 62 Troponin I High Sens 453.8 H* 674.0 H* Total Protein 6.9 Albumin 3.4 Globulin 3.5 Albumin/Globulin Ratio 1.0 TSH Urine Color Urine Clarity Urine pH Ur Specific [place] Urine Protein Urine Glucose (UA) Urine Ketones Urine Occult Blood Urine Nitrite Urine Bilirubin Urine Urobilinogen Ur Leukocyte Esterase Urine RBC Urine WBC Ur Squamous Epith Cells Urine Bacteria Urine Mucus Urine Osmolality Ur Random Sodium Urine Creatinine POC Glucose 09/12/20 06:56 WBC RBC Hgb Hct MCV MCH MCHC RDW Std Deviation RDW Coeff of Lucas Plt Count MPV Immature Gran % (Auto) Neut % (Auto) Lymph % (Auto) Mathews % (Auto) Eos % (Auto) Baso % (Auto) Absolute Neuts (auto) Absolute Lymphs (auto) Nucleated RBC % Differential Comment Diff Path Review Plt Morphology Comment PT INR APTT Sodium Potassium Chloride Carbon Dioxide Anion Gap BUN Creatinine Estim Creat Clear Calc Est GFR (MDRD) Af Amer Est GFR (MDRD) Non-Af BUN/Creatinine Ratio Glucose Serum Osmolality Calcium Magnesium Total Bilirubin Direct Bilirubin AST ALT Alkaline Phosphatase Troponin I High Sens Total Protein Albumin Globulin Albumin/Globulin Ratio TSH Urine Color Urine Clarity Urine pH Ur Specific [place] Urine Protein Urine Glucose (UA) Urine Ketones Urine Occult Blood Urine Nitrite Urine Bilirubin Urine Urobilinogen Ur Leukocyte Esterase Urine RBC Urine WBC Ur Squamous Epith Cells Urine Bacteria Urine Mucus Urine Osmolality Ur Random Sodium Urine Creatinine POC Glucose 134 H Cardiology Labs/Tests 09/11/20 16:24: Urine Color Yellow, Urine Clarity Clear, Urine pH 6.0, Ur Specific [place] 1.010, Urine Protein Negative, Urine Glucose (UA) Normal, Urine Ketones 5 H, Urine Occult Blood Negative, Urine Nitrite Negative, Urine Bilirubin Negative, Urine Urobilinogen Normal, Ur Leukocyte Esterase 100 H, Urine RBC 0 SEEN, Urine WBC 5-10 SEEN 09/11/20 16:40: WBC 14.2 H, RBC 5.01, Hgb 14.0, Hct 42.8, MCV 85.4, MCH 27.9, MCHC 32.7, Plt Count 1080 H*, MPV 11.5, Immature Gran % (Auto) 0.500, Neut % (Auto) 86.3 H, Lymph % (Auto) 6.6 L, Mathews % (Auto) 5.6, Eos % (Auto) 0.6, Baso % (Auto) 0.4, Absolute Neuts (auto) 12.2 H, Nucleated RBC % 0 09/11/20 16:40: PT 14.3, INR 1.2, APTT 35.5 09/11/20 16:40: Sodium 129 L, Potassium 4.1, Chloride 99, Carbon Dioxide 24.0, Anion Gap 6, BUN 13, Creatinine 0.87, Est GFR (MDRD) Af Amer 83, Est GFR (MDRD) Non-Af 69, BUN/Creatinine Ratio 15.0, Glucose 145 H, Calcium 9.1, Total Bilirubin 0.40, Direct Bilirubin 0.14 09/11/20 16:40: Magnesium 1.8 09/11/20 16:40: Serum Osmolality 282 09/12/20 05:10: WBC 13.1 H, RBC 4.68, Hgb 13.0, Hct 40.2, MCV 85.9, MCH 27.8, MCHC 32.3, Plt Count 1034 H*, MPV 11.7, Immature Gran % (Auto) 0.300, Neut % (Auto) 80.0 H, Lymph % (Auto) 11.7 L, Mathews % (Auto) 6.4, Eos % (Auto) 1.1, Baso % (Auto) 0.5, Absolute Neuts (auto) 10.5 H, Nucleated RBC % 0 09/12/20 05:10: Sodium 138, Potassium 4.1, Chloride 108 H, Carbon Dioxide 23.0, Anion Gap 7, BUN 8, Creatinine 0.69, Est GFR (MDRD) Af Amer 109, Est GFR (MDRD) Non-Af 90, BUN/Creatinine Ratio 11.6, Glucose 112 H, Calcium 8.4 L, Total Bilirubin 0.40 Rhythm: Normal sinus rhythm EKG: Normal sinus rhythm, no ST?T abnormalities noted ECHO: Stress Test: Cardiac Cath: PCI: CT Surgery: Holter monitor: EPS: PPM: CXR: Chest CT Scan: Radiography Diagnostic Testing: Radiology Impression Brain CT 09/11/20 16:31 IMPRESSION: No acute disease Electronically Signed: Pradeep Park MD at 17:09 EDT , Service support , Chest X-Ray 09/11/20 22:46 IMPRESSION: Normal x-ray examination of the chest. Electronically Signed: Mauro Garrido MD at 9:47 EDT Tel , Service support ,
--- NOTE | 2020-09-12 10:50 | CASEMGMT ---
RN CM Face to Face with patient for initial transition planning/care coordination assessment. RN CM introduced self and role at [facility]. Patient lying in bed, alert and oriented, at bedside. Patient willing to participate in assessment and is able to answer all questions appropriately. Care providers, pharmacy, and demographics verified. Patient wishes to discharge home, denies need for home health at this time. Patient states she has no further needs or concerns at this time. CM to follow for discharge planning needs that may arise. PCP: [place] Specialists: , endocrinology; Natali, hematology Preferred Pharmacy: [facility] Insurance: [facility], [employer] Prescription Benefit: yes Living Will/HPOA: none LNOK: Living Arrangements: Patient lives with in a single story home with 2 steps to enter. Patient states she is independent at home. Transportation: self/ DME/HHC: Patient states she has walker at home. Patient denies previous HHC or SNF Disposition Plan: Patient to discharge home with family support and follow-up plans in place. Sakshi ELENAN, RN, CM
--- NOTE | 2020-09-12 11:28 | NURSING ---
Called report to Olivia TO in [employer]
[2020-09-12 11:45] LABS: Bedside Glucose 115 mg/dL (70-110)
[2020-09-12 12:33] LABS: Pathologist Review Reviewed
[2020-09-12 12:33] LABS: Pathologist Review Reviewed
--- NOTE | 2020-09-12 15:10 | PCM.DC ---
Discharge Instructions Diet Discharge Diet: 1800 Calorie Control Diet Activity Discharge Activity: Return to Normal Activity Weight Bearing Status: Full weight bearing Follow Up Care Test Results: Test results from this visit will be discussed in further detail at your follow-up appointment, if applicable. Discharge Plan Admission Admit Date/Time: 09/12/20 09:52 Primary Reason for Your Visit: chest pain, Non Stemi Attending Provider: Rasheed Doll Consulting Providers: Meredith Bowden Instructions Additional Instructions / Restrictions: Dr. Chavez's office will contact you to schedule your appointment for cardiology-call after one week if you have not been contacted by them Discharge Orders/Prescriptions Prescriptions: New carvedilol 3.125 mg tablet 3.125 mg PO BID Qty: 60 RF: 0 atorvastatin [Lipitor] 40 mg tablet 40 mg PO DAILY Qty: 30 RF: 0 Continued enalapril maleate 10 mg tablet 10 mg PO BID RF: 0 aspirin 81 mg tablet,delayed release (DR/EC) 81 mg PO DAILY RF: 0 halobetasol propionate 0.05 % cream 1 applic topical DAILY RF: 0 clobetasol [Clobex] 0.05 % lotion 1 applic topical DAILY RF: 0 calcitriol 3 mcg/gram ointment 1 applic topical BID RF: 0 clobetasol 0.05 % shampoo 1 applic topical DAILY RF: 0 levothyroxine 50 mcg tablet See Rx Instructions PO .q week Qty: 138 RF: 3 ergocalciferol (vitamin D2) 50 mcg (2,000 unit) capsule 50 mcg PO DAILY Qty: 1 RF: 0 penicillin V potassium 250 mg tablet 250 mg PO BID Qty: 28 RF: 0 Referrals / Follow Up: Sabra Galeano [Other] Sabra Galeano [Other] Jose Chavez MD [STAFF PHYSICIAN] - Within 1 Month Disposition Disposition (needs filled in before D/C Order can be placed): Home, Self Care
--- NOTE | 2020-09-12 16:44 | PCM.OP.PRO ---
Procedure Report Date of Procedure: 09/12/20 Procedure performed; 1. Left heart catheterization 2. Selective cholangiography 3. Placement of TR band to close the right radial artery arteriotomy site. Consent; Risk and benefit of the procedure explained detail to the patient she elected to proceed informed consent obtained. Diagnostic catheter used 1. 6 Prydeinig from sheath/right radial artery approach 2. 5 Prydeinig JL 3.5 3. 5 Prydeinig JR4 Preprocedure diagnosis; 69-year-old patient who presented with abdominal pain lightheadedness and dizziness had a frequent urinary tract infection, hypothyroidism, diabetes mellitus and dysuria Evaluated with high sensitive troponin which showed moderate elevation Based on her presentation lightheadedness dizziness and nondiabetic clinical diagnosis of silent MD which is a high risk Procedure in detail; Patient brought to the [employer] in fasting state, right radial artery area prepped and draped in the usual sterile fashion 6 Prydeinig sheath placed in the right radial artery Cocktail of verapamil, heparin as well as nitroglycerin was given through the sheath We will proceed with the diagnostic catheter 5 Prydeinig JL 3.5 advanced ascending aorta cannulated the left main without difficulty, multiple views of the left main carotid obtained including TUNISIAN, RADER cranial and caudal views following this catheter exchanged for 5 Prydeinig JR4 selective angiogram of the record system obtained in the same catheter was used to cross the aortic valve on left ventriculogram was not performed in this case as she has an echocardiogram showed LV function preserved. Heavily calcified mitral annulus Measurement of LV EDP and a pullback pressure were recorded Findings Hemodynamics LVEDP within normal No systolic gradient across aortic valve Coronary angiography; 1. Left main is calcified bifurcating into LAD and left circumflex artery Angiographically there is no obstructive atherosclerosis in the left main coronary artery. Also noted heavily calcified mitral annulus LAD ostial/proximal LAD has nonobstructive atherosclerosis, due to large left circumflex artery and overlapping with very difficult evaluation However appear nonobstructive with proximal LAD around 40 to 50% In the mid LAD which is moderate dual LAD system, 40-50% stenosis involving the mid LAD and the bifurcation the moderate-sized diagonal branch. The left circumflex artery is a large dominant, with a left posterior descending artery arising from the left circumflex Ostial OM1 had nonobstructive sclerosis of around 30-40% Right coronary artery small nondominant. Conclusion recommendations; This patient has CAD with a calcified left main extension of calcification into the LAD and circumflex with nonobstructive proximal and mid LAD and a significantly large dominant left circumflex with nonobstructive OM1 Patient tolerated the procedure well with no complication TR band applied to right radial artery area to maintain hemostasis of the right radial artery arteriotomy site Recommendations; Medical treatment risk factor control Follow-up regularly with a last trimmer to evaluate with nuclear stress test, to assess the severity of the LAD stenosis. Guideline directed medical therapy with aspirin, beta-ricky, statin, nitroglycerin as needed to treat medically. Betty Alvarenga MD,FACC,[facility]
--- NOTE | 2020-09-12 17:45 | NURSING ---
Addendum entered by Darlyn Del Castillo 09/13/20 00:34: Late entry. 1944: Attempted to remove air from pt's TR band. Unable to remove more than 2cc of air following policy/procedure. Notified Dr Alvarenga that pt continues to have oozing at radial site. Dr. Alvarenga to come see pt. Emilee, RN Original Note: BUDGET ANALYST called this RN while downstairs in lobby with patient after discharge. This RN notified that there was small amount of blood on wrist heart cath site. RN came downstairs to assess. Attempted to replace dressing but could not obtain hemostasis. Paged Dr. Alvarenga and got direction to observe site for x2 hours and call him back with updated on status of site. TR band obtained from light industrial supervisor and placed at 1800.
[2020-09-12 18:40] LABS: Bedside Glucose 133 mg/dL (70-110)
[2020-09-12] MEDS: Acetaminophen 325 MG Tablet 650 MG PO (18:55)
--- NOTE | 2020-09-12 19:05 | PCM.DC.SUM ---
Providers Date of Admission: 09/12/20 Date of Discharge: 09/12/20 Primary Care Physician: Sabra Galeano Consultations 09/11/20 23:58 Consult: Cardiology Routine Consulting Provider: Meredith Bowden Reason for Consult: Elevated trop, concern NSTEMI EMERGENT Consult: No MD Notified: Yes Date Notified: 09/11/20 Time Notified: 23:59 Method of Notification: cortext Reason For Visit: NEAR SYNCOPE, LH/DIZZINESS Diagnosis Discharge Diagnosis (1) Near syncope: Status: Acute Code(s): R55 - Syncope and collapse (2) Thrombocytosis: Status: Acute Code(s): D47.3 - Essential (hemorrhagic) thrombocythemia (3) NSTEMI (non-ST elevated myocardial infarction): Status: Acute Code(s): I21.4 - Non-ST elevation (NSTEMI) myocardial infarction Plan: 1. Non-STEMI #2 nonocclusive coronary artery disease #3 thrombocytosis-etiology unclear #4 hypertension #5 type 2 diabetes Medications at Discharge Home Medications aspirin 81 mg tablet,delayed release 81 mg PO DAILY 01/05/18 enalapril maleate 10 mg tablet 10 mg PO BID 01/05/18 levothyroxine 50 mcg tablet See Rx Instructions PO .q week #138 tab 10/01/19 ergocalciferol (vitamin D2) 50 mcg (2,000 unit) capsule 50 mcg PO DAILY #1 cap 10/03/19 penicillin V potassium 250 mg tablet 250 mg PO BID #28 tab 09/01/20 calcitriol 3 mcg/gram topical ointment 1 applic TOPICAL BID 09/03/20 clobetasol 0.05 % lotion 1 applic TOPICAL DAILY 09/03/20 clobetasol 0.05 % shampoo 1 applic TOPICAL DAILY 09/03/20 halobetasol propionate 0.05 % topical cream 1 applic TOPICAL DAILY 09/03/20 atorvastatin [Lipitor] 40 mg PO DAILY #30 tab 09/12/20 carvedilol 3.125 mg PO BID #60 tab 09/12/20 Hospital Course Operations None Procedures 2-D Echocardiogram and Cardiac catheterization Summary of Care Provided Minutes Spent on Discharge: 31 Hospital Course: This 69-year-old white female with complaint of generalized weakness and malaise. Patient had been following up as an outpatient with hematology due to an elevated platelet count and an elevated white blood cell count, she also has a history of type 2 diabetes and is being followed by endocrinology. Work-up in the emergency room included labs which showed an elevated white blood cell count of 14.4, platelet count was 1,080,000, patient's urinalysis was grossly unremarkable, patient's sodium was low at 129. EKG showed a normal sinus rhythm with no evidence of ischemia, patient had a CT of the brain which showed no acute disease, patient's blood pressure was noted to be elevated in the emergency room and she was given a dose of labetalol for blood pressure control. Patient was also given IV fluid. Patient was admitted to PCU, troponin was obtained which was elevated, subsequent troponins were also elevated. Patient had an echocardiogram performed which showed a normal EF with moderate mitral valve insufficiency, mild aortic stenosis, and trivial tricuspid valve insufficiency, she was seen in consultation by cardiology who performed a cardiac catheterization which showed no evidence of occlusive coronary disease, there was evidence of nonocclusive coronary artery disease however. It was recommended the patient be discharged home on a beta-yue as well as a statin with follow-up as an outpatient. On 09/12/2020, patient was seen and examined: On examination she appeared in good health and spirits, she does not appear to be in any distress. Vital signs as documented. Skin warm and dry and without overt rashes. Neck without JVD, thyroid appears normal, trachea is midline, neck is supple. Lungs clear, normal air movement was noted. Heart exam notable for regular rhythm, normal sounds and absence of murmurs, rubs or gallops. Abdomen unremarkable and without evidence of organomegaly, masses, or abdominal aortic enlargement, bowel sounds are present in all 4 quadrants, no abdominal tenderness was noted. Extremities nonedematous, no cyanosis was noted, no clubbing was noted. Neuro: Cranial nerves II through XII are grossly intact, no focal motor deficits were noted, sensation to light touch and pinprick is intact, motor exam 5/5 throughout. Psych: Patient is alert and oriented x3, she does not appear anxious or depressed, she does not appear agitated. Patient was discharged to home in stable condition on 09/12/2020. Weight / BMI Weight Weight: 89.6 kg Body Mass Index (BMI) 30.9 ABG / Lab / Microbiology Data Result Diagrams: 09/12/20 05:10 09/12/20 05:10 Laboratory: Laboratory Results - last 24 hr 09/11/20 09/11/20 09/11/20 16:40 16:40 16:40 WBC RBC Hgb Hct MCV MCH MCHC RDW Std Deviation RDW Coeff of Lucas Plt Count MPV Immature Gran % (Auto) Neut % (Auto) Lymph % (Auto) [place] % (Auto) Eos % (Auto) Baso % (Auto) Absolute Neuts (auto) Absolute Lymphs (auto) Nucleated RBC % Diff Path Review Reviewed Plt Morphology Comment Sodium Potassium Chloride Carbon Dioxide Anion Gap BUN Creatinine Estim Creat Clear Calc Est GFR (MDRD) Af Amer Est GFR (MDRD) Non-Af BUN/Creatinine Ratio Glucose Serum Osmolality 282 Calcium Magnesium 1.8 Total Bilirubin AST ALT Alkaline Phosphatase Troponin I High Sens Total Protein Albumin Globulin Albumin/Globulin Ratio Urine Osmolality Ur Random Sodium Urine Creatinine POC Glucose 09/11/20 09/11/20 09/11/20 20:05 23:04 23:25 WBC RBC Hgb Hct MCV MCH MCHC RDW Std Deviation RDW Coeff of Lucas Plt Count MPV Immature Gran % (Auto) Neut % (Auto) Lymph % (Auto) [place] % (Auto) Eos % (Auto) Baso % (Auto) Absolute Neuts (auto) Absolute Lymphs (auto) Nucleated RBC % Diff Path Review Plt Morphology Comment Sodium Potassium Chloride Carbon Dioxide Anion Gap BUN Creatinine Estim Creat Clear Calc Est GFR (MDRD) Af Amer Est GFR (MDRD) Non-Af BUN/Creatinine Ratio Glucose Serum Osmolality Calcium Magnesium Total Bilirubin AST ALT Alkaline Phosphatase Troponin I High Sens 387.6 H* Total Protein Albumin Globulin Albumin/Globulin Ratio Urine Osmolality Ur Random Sodium Urine Creatinine POC Glucose 212 H 155 H 09/11/20 09/11/20 09/11/20 23:30 23:30 23:30 WBC RBC Hgb Hct MCV MCH MCHC RDW Std Deviation RDW Coeff of Lucas Plt Count MPV Immature Gran % (Auto) Neut % (Auto) Lymph % (Auto) [place] % (Auto) Eos % (Auto) Baso % (Auto) Absolute Neuts (auto) Absolute Lymphs (auto) Nucleated RBC % Diff Path Review Plt Morphology Comment Sodium Potassium Chloride Carbon Dioxide Anion Gap BUN Creatinine Estim Creat Clear Calc Est GFR (MDRD) Af Amer Est GFR (MDRD) Non-Af BUN/Creatinine Ratio Glucose Serum Osmolality Calcium Magnesium Total Bilirubin AST ALT Alkaline Phosphatase Troponin I High Sens Total Protein Albumin Globulin Albumin/Globulin Ratio Urine Osmolality 120 Ur Random Sodium 35 Urine Creatinine < 13.00 POC Glucose 09/12/20 09/12/20 09/12/20 00:42 05:10 05:10 WBC 13.1 H RBC 4.68 Hgb 13.0 Hct 40.2 MCV 85.9 MCH 27.8 MCHC 32.3 RDW Std Deviation 49.5 H RDW Coeff of Lucas 15.9 H Plt Count 1034 H* MPV 11.7 Immature Gran % (Auto) 0.300 Neut % (Auto) 80.0 H Lymph % (Auto) 11.7 L [place] % (Auto) 6.4 Eos % (Auto) 1.1 Baso % (Auto) 0.5 Absolute Neuts (auto) 10.5 H Absolute Lymphs (auto) 1.54 Nucleated RBC % [address] Review Reviewed Plt Morphology Comment LARGE Sodium 138 Potassium 4.1 Chloride 108 H Carbon Dioxide 23.0 Anion Gap 7 BUN 8 Creatinine 0.69 Estim Creat Clear Calc 52.36 Est GFR (MDRD) Af Amer 109 Est GFR (MDRD) Non-Af 90 BUN/Creatinine Ratio 11.6 Glucose 112 H Serum Osmolality Calcium 8.4 L Magnesium Total Bilirubin 0.40 AST 26 ALT 22 Alkaline Phosphatase 62 Troponin I High Sens 453.8 H* 674.0 H* Total Protein 6.9 Albumin 3.4 Globulin 3.5 Albumin/Globulin Ratio 1.0 Urine Osmolality Ur Random Sodium Urine Creatinine POC Glucose 09/12/20 09/12/20 09/12/20 06:56 11:21 18:33 WBC RBC Hgb Hct MCV MCH MCHC RDW Std Deviation RDW Coeff of Lucas Plt Count MPV Immature Gran % (Auto) Neut % (Auto) Lymph % (Auto) [place] % (Auto) Eos % (Auto) Baso % (Auto) Absolute Neuts (auto) Absolute Lymphs (auto) Nucleated RBC % Diff Path Review Plt Morphology Comment Sodium Potassium Chloride Carbon Dioxide Anion Gap BUN Creatinine Estim Creat Clear Calc Est GFR (MDRD) Af Amer Est GFR (MDRD) Non-Af BUN/Creatinine Ratio Glucose Serum Osmolality Calcium Magnesium Total Bilirubin AST ALT Alkaline Phosphatase Troponin I High Sens Total Protein Albumin Globulin Albumin/Globulin Ratio Urine Osmolality Ur Random Sodium Urine Creatinine POC Glucose 134 H 115 H 133 H Radiography Diagnostic Testing: Radiology Impression Echocardiogram 09/11/20 21:46 Interpretation Summary The estimated ejection fraction is EF 55-60 %. Moderate to severe concentric LVH Heavily calcified papillary muscle Moderate MR Grade #2 Diastolic Dysfunction MIld ,HARPER 1.9 cm2, Trivial tricuspid valve insufficiency. Ordering Physician: Melania Corrales Referring Physician: Out [facility] Doctor Performed By: Cheko Mathis RCS Chest X-Ray 09/11/20 22:46 IMPRESSION: Normal x-ray examination of the chest. Electronically Signed: Mauro Garrido MD at 9:47 EDT Tel , Service support , D/C Instructions Discharge Diet: 1800 Calorie Control Diet Weight Bearing Status: Full weight bearing Meaningful Use Info Meaningful Use Diagnoses (Choose all that apply): AMI AMI/Post PCI/Angioplasty Aspirin given w/in 24hrs of arrival?: Yes ASA at discharge?: Yes Antiplatelet Therapy at Discharge:: Yes Statins at discharge?: Yes Dean/ARB at discharge?: Yes Beta Yue at discharge?: Yes Done w/ Acute OH measure.: Yes Documented LVEF (%): 60 Discharge Plan Admission Admit Date/Time: 09/12/20 09:52 Primary Reason for Your Visit: chest pain, Non Stemi Attending Provider: Rasheed Doll Consulting Providers: Meredith Bowden Instructions Additional Instructions / Restrictions: Dr. Chavez's office will contact you to schedule your appointment for cardiology-call after one week if you have not been contacted by them Discharge Orders/Prescriptions Prescriptions: New carvedilol 3.125 mg tablet 3.125 mg PO BID Qty: 60 RF: 0 atorvastatin [Lipitor] 40 mg tablet 40 mg PO DAILY Qty: 30 RF: 0 Continued enalapril maleate 10 mg tablet 10 mg PO BID RF: 0 aspirin 81 mg tablet,delayed release (DR/EC) 81 mg PO DAILY RF: 0 halobetasol propionate 0.05 % cream 1 applic topical DAILY RF: 0 clobetasol [Clobex] 0.05 % lotion 1 applic topical DAILY RF: 0 calcitriol 3 mcg/gram ointment 1 applic topical BID RF: 0 clobetasol 0.05 % shampoo 1 applic topical DAILY RF: 0 levothyroxine 50 mcg tablet See Rx Instructions PO .q week Qty: 138 RF: 3 ergocalciferol (vitamin D2) 50 mcg (2,000 unit) capsule 50 mcg PO DAILY Qty: 1 RF: 0 penicillin V potassium 250 mg tablet 250 mg PO BID Qty: 28 RF: 0 Referrals / Follow Up: Sabra Galeano [Other] Sabra Galeano [Other] Jose Chaevz MD [STAFF PHYSICIAN] - Within 1 Month Disposition Discharge Orders: Discharge Patient (Routine); Ordered 09/12/20 Ordered By: Dr. Rasheed Doll Charges/Coding Visit Charges Inpatient E&M: 49138 Disch Hosp
[2020-09-12] MEDS: hydrALAZINE 20 MG/ML Vial 10 MG IV (20:40)
--- NOTE | 2020-09-12 20:40 | NURSING ---
Dr Alvarenga at bedside at this time to assess patient.
[2020-09-12 20:48] LABS: Hematocrit 42.9 % (37-47); Hemoglobin 13.6 g/dL (12.0-15.0); POSITIVE MORPHOLOGY YES
--- NOTE | 2020-09-12 21:00 | NURSING ---
Handoff given to YOUSUF Moody at this time. YOUSUF Hebert
--- NOTE | 2020-09-12 21:08 | NURSING ---
Received report from Darlyn OT. This RN assuming care of pt. at this time.
[2020-09-12 23:21] LABS: Bedside Glucose 141 mg/dL (70-110)
[2020-09-13] VITALS (7 sets, daily range): BP systolic 146–166; BP diastolic 74–80; PULSE 78–98; RESP 16–18; TEMP 36.7–37.1; O2SAT 94–98
--- NOTE | 2020-09-13 00:45 | NURSING ---
TR band air removed per Dr. Alvarenga's instructions, dressing applied with no s/sx of bleeding noted at this time.
[2020-09-13] MEDS: Acetaminophen 325 MG Tablet 650 MG PO (03:17)
--- NOTE | 2020-09-13 03:19 | NURSING ---
Pt. requested 325 mg of 650 mg dose of tylenol at this time.
[2020-09-13 06:55] LABS: Bedside Glucose 110 mg/dL (70-110)
[2020-09-13] MEDS: Aspirin E.C. 81 MG Tablet PO (09:35)
[2020-09-13] MEDS: Penicillin Vk 250 MG Tablet PO (09:35)
[2020-09-13] MEDS: Lisinopril 10 MG Tablet PO (09:35)
[2020-09-13] MEDS: Meclizine 12.5 MG Tablet PO (10:25)
[2020-09-13 12:26] LABS: Bedside Glucose 130 mg/dL (70-110)
--- NOTE | 2020-09-17 18:45 | PN.HOSP_ITS ---
Subjective Subjective The date of this progress note should be 09/12/2020: Patient was seen and examined today, she underwent a cardiac catheterization today which did not show any evidence of occlusive coronary disease. Initially, it was felt that the patient could be discharged home but later on in the day, patient had significant blee ding from her radial artery catheterization site which necessitated cancellation of the discharge. Objective Data Objective Data Vital Signs: Vital Signs Temp Pulse Resp BP Pulse Ox 98.1 F 78 16 147/80 H 98 09/13/20 15:00 09/13/20 15:00 09/13/20 15:00 09/13/20 15:00 09/13/20 15:00 Oxygen Delivery Method Room Air Weight: 89.3 kg Body Mass Index (BMI) 30.9 Lab / Micro Data Result Diagrams: 09/12/20 20:25 09/12/20 05:10 Physical Exam Const alert, oriented x3, no apparent distress and healthy appearing General Appearance: cooperative, well kempt and well developed Orientation / Consciousness: awake, oriented to person, oriented to place and oriented to time Exam Limitations: no limitations HEENT normocephalic and moist oral mucous membranes Eyes PERRL, EOMs intact bilaterally and conjunctivae normal Neck nuchal rigidity, supple, no JVD, thyroid normal and no carotid bruits General: trachea midline Resp normal respiratory effort, no retractions, no use of accessory muscles and clear to auscultation bilaterally Auscultation: Negative for rales, rhonchi or wheezes Cardio regular rate, regular rhythm, S1 normal heart sound, S2 normal heart sound, no murmurs, no rub and no gallops GI normal to inspection, nondistended, normoactive bowel sounds, soft to palpation, non-tender and non-distended Extremity normal to inspection and no clubbing, cyanosis or edema Skin no rashes or lesions noted General Skin Exam: no breakdown Neuro oriented x3, CN's II-XII intact bilaterally, no focal motor deficits and no sensory deficits noted Sensorium / Orientation: awake and alert Speech: speech normal Psych thought process normal and affect normal Assessment & Plan Assessment/Plan (1) NSTEMI (non-ST elevated myocardial infarction): PLAN: 1. Non-STEMI #2 nonocclusive coronary artery disease #3 thrombocytosis-etiology unclear #4 essential hypertension #5 type 2 diabetes Patient will be reevaluated on 09/13/2020 for possible discharge Charges/Coding Visit Charges Inpatient E&M: 30202 Subs Hosp L2
== END 2020-09-13 15:07 | disposition home or self-care (01) | DRG 281 ==
LOC: ED 20:21 → PCU 21:15
PROVIDERS: Admitting Provider Family Medicine; Emergency Provider Emergency Medicine; Visit Provider Internal Medicine
DX: I21.4 Non-ST elevation (NSTEMI) myocardial infarction (principal); E87.1 Hypo-osmolality and hyponatremia; R55 Syncope and collapse; I25.10 Atherosclerotic heart disease of native coronary artery without angina pectoris; I10 Essential (primary) hypertension; D69.6 Thrombocytopenia, unspecified; Z79.82 Long term (current) use of aspirin; Z79.890 Hormone replacement therapy; Z87.440 Personal history of urinary (tract) infections; E11.9 Type 2 diabetes mellitus without complications; E78.5 Hyperlipidemia, unspecified; E06.3 Autoimmune thyroiditis; Z82.49 Family history of ischemic heart disease and other diseases of the circulatory system; Z83.3 Family history of diabetes mellitus; Z88.5 Allergy status to narcotic agent; Z90.49 Acquired absence of other specified parts of digestive tract
CPT/HCPCS: 36415; 70450; 71046; 80048; 80053; 80076; 81001; 82570; 82962; 83735; 83930; 83935; 84300; 84443; 84484; 85014; 85018; 85025; 85610; 85730; 93005; 93306; 93454; 97802; 99152; 99153; 99251; 99284; J7030; Q9957; Q9967; A4216; C1769; C1894; G0463; J3490

== ENCOUNTER 2021-04-23 14:53 | Outpatient (CLI) | payer MEDICARE, OTHER, SELFPAY ==
--- NOTE | 2021-04-23 15:29 | ECHOL_ITS ---
Reason For Study: CARDIOMEGALY Procedure This was a limited 2D transthoracic echocardiogram. Myocardial strain analysis was performed in this exam to aid in the assessment of cardiac function. Limited views were obtained. Exam performed in department. Left Ventricle Normal LV size. Moderate concentric left ventricular hypertrophy. Left ventricular systolic function is normal. The estimated ejection fraction is 55 %. The global longitudinal strain = -20 % (normal). No regional wall motion abnormalities noted. Right Ventricle Normal RV size. Normal systolic function. Atria The left atrium is mildly enlarged. Normal right atrium. Mitral Valve There is severe mitral annular calcification. Extension of the mitral annular calcification onto the mitral valve leaflets. Tricuspid Valve Normal tricuspid valve. Aortic Valve Trisinus/trileaflet aortic valve. Moderate focal aortic valve thickening. Moderate focal aortic valve calcification. Pulmonic Valve The pulmonic valve is not well visualized. Great Vessels Normal sized aortic root. Pericardium/Pleural No pericardial effusion. MMode/2D Measurements & Calculations LVIDd: 4.9 cm IVSd: 1.4 cm Ao root diam: 2.8 cm LVIDs: 3.4 cm LVPWd: 1.4 cm RVDd: 2.6 cm FS: 30.5 % LAV(MOD-bp): 68.1 ml LA A4 area: 20.9 cm2 LA dimension(2D): 4.0 cm LAV(MOD-bp) Indexed: 33.4 ml/m2 LAV(MOD-sp2): 69.5 ml LAV(MOD-sp4): 61.7 ml RA A4 area: 14.1 cm2 ECHO/Echo, Limited Study Interpretation Summary Limited views were obtained. Left ventricular systolic function is normal. The estimated ejection fraction is 55 %. The global longitudinal strain = -20 % (normal). Moderate concentric left ventricular hypertrophy. The left atrium is mildly enlarged. There is severe mitral annular calcification. Extension of the mitral annular calcification onto the mitral valve leaflets. Moderate focal aortic valve thickening. Moderate focal aortic valve calcification. Comment: Global longitudinal strain pattern does not appear to represent the cl assic bull's-eye pattern suggestive of amyloidosis. Ordering Physician: Sloane Palumbo Referring Physician: OLAYINKA WYMAN Performed By: Berenice Baker, RIN, RVT
== END 2021-04-23 23:59 | disposition home or self-care (01) ==
LOC: CVS 14:54
PROVIDERS: PCP Internal Medicine Infectious Disease; Referring Provider Physician Assistant Medical; Visit Provider Physician Assistant Medical
DX: I11.9 Hypertensive heart disease without heart failure (principal); I05.9 Rheumatic mitral valve disease, unspecified; I25.2 Old myocardial infarction; R55 Syncope and collapse
CPT/HCPCS: 93308

== ENCOUNTER → 2021-09-04 | Outpatient (CLI) | payer MEDICARE, OTHER, SELFPAY ==
--- NOTE | 2021-09-04 09:41 | STRESSREP_ITS ---
Stress Test Report Date: 09-04-2021 Procedure: Pharmacologic stress nuclear imaging study Indications: Chest pain; coronary artery calcification; CAD Consent: Per the patient Procedure: The patient underwent pharmacologic (Regadenoson 0.4mg ) evaluation with a peak heart rate of 112 beats per minute (74%predicted maximal heart rate) and a peak blood pressure of 162/94 mmHg. The baseline ECG demonstrated normal sinus rhythm. The peak pharmacologic ECG demonstrated no obvious ECG changes. There were no cardiac dysrhythmias pretest, during pharmacologic infusion, or recovery. There was notation of back discomfort/chest discomfort during early recovery- Per the patient resembling the symptoms she has at home. The examination was discontinued secondary to completion of protocol. Impression: 1. Pharmacologic (Regadenoson) evaluation 2. Peak pharmacologic ECG with no obvious ECG changes. 3. There were no cardiac dysrhythmias pretest, during pharmacologic infusion, or recovery. 4. Nuclear images pending Myocardial perfusion imaging study: Technique: The patient was injected with 14.4 millicuries of technetium 99m Cardiolite and subsequently rest SPECT Cardiolite nuclear imaging was obtained in the horizontal long, vertical long, and short axis views. The patient underwent pharmacologic (Regadenoson) evaluation with a peak heart rate of 112 beats per minute (74% percent predicted maximal heart rate) and a peak blood pressure of 164/92 mmHg. The patient was injected with 43.9 millicuries of technetium 99m Cardiolite and subsequently stress SPECT Cardiolite nuclear imaging was obtained in the horizontal long, vertical long, and short axis views. A gated Cardiolite study at peak stress was obtained. Interpretation: Rest and stress SPECT Cardiolite nuclear imaging status post realignment, normalization, and attenuation correction demonstrate the appearance of diminished myocardial perfusion/tracer uptake in portions of the mid toward distal anterior/anteroseptal and septal apical segments. There are similar type findings on the stress polar map images. There is diminished end-systolic thickening in the aforementioned areas. The gated Cardiolite study demonstrates myocardial thickening and inward wall motion. The reported LVEF is 50%. Impression: 1. Rest and stress SPECT current nuclear imaging demonstrate myocardial perfusion changes appearing compatible with an element of stress-induced myocardial ischemia in portions of the mid to distal anterior/anteroseptal and septal apical segments. 2. The gated Cardiolite study reports an LVEF of 50%. This note was generated with Dragon dictation software. It may contain incorrect words, spelling, and punctuation that were not noted in checking the note before signing.
== END | disposition home or self-care (01) ==
LOC: CVS 07:11
PROVIDERS: PCP Internal Medicine Infectious Disease; Referring Provider Internal Medicine Cardiovascular Disease; Visit Provider Internal Medicine Cardiovascular Disease
DX: I25.10 Atherosclerotic heart disease of native coronary artery without angina pectoris (principal)
CPT/HCPCS: 78452; 93017; A9500; A4216; J2785

== ENCOUNTER → 2021-09-18 | Outpatient (CLI) | payer MEDICARE, OTHER, SELFPAY ==
[2021-09-18 10:00] LABS: AST(SGOT) 19 U/L (15-37); Alanine Aminotransfer ALT/SGPT 24 U/L (13-56); Albumin, Serum 3.8 g/dL (3.2-5.0); Alkaline Phosphatase 77 U/L (45-117); Bilirubin, Direct 0.09 mg/dL (0.00-0.30); Cholesterol 251 mg/dL (200); Globulin 3.8 g/dL (2.2-4.2); High Density Lipoprotein 59 mg/dL; Protein, Total 7.6 g/dL (6.4-8.2); Triglycerides 188 mg/dL; Very Low Density Lipoprotein 38 mg/dL (5-40)
== END | disposition home or self-care (01) ==
LOC: PAVLAB 09:05
PROVIDERS: PCP Internal Medicine Infectious Disease; Referring Provider Internal Medicine Cardiovascular Disease; Visit Provider Internal Medicine Cardiovascular Disease
DX: I25.10 Atherosclerotic heart disease of native coronary artery without angina pectoris (principal); E78.5 Hyperlipidemia, unspecified
CPT/HCPCS: 36415; 80061; 80076

== ENCOUNTER 2022-04-27 10:01 | Inpatient (IN) | payer MEDICARE, OTHER, SELFPAY ==
[2022-04-27] VITALS (10 sets, daily range): BP systolic 110–196; BP diastolic 51–98; PULSE 73–106; RESP 14–24; TEMP 36.6–37.1; O2SAT 95–100; BMI 32.1
--- NOTE | 2022-04-27 10:24 | EDS_ITS ---
HPI HPI - GI History of Present Illness Chief Complaint: Nausea/Vomiting Detail of Chief Complaint: Hematemesis and melena. Informant: patient and family Abdominal Pain/Flank Pain Onset: Today Context: Gradual Onset Timing: Intermittent Current Severity: Moderate Maximum Severity: Moderate Worsened by: Nothing Relieved by: Nothing Nausea/Vomiting/Emesis GI Symptom: Positive for Nausea and Vomiting Onset: Today Quality: Positive for Hematemesis Severity: Mild Diarrhea/Melena/Hematochezia GI Symptom: Positive for Melena; Negative for Diarrhea Onset: Today Stool Quality: Positive for Loose Severity: Mild Associated Symptoms Associated Symptoms: Negative for Dysuria, Frequency or Hematuria Narrative Narrative: 71-year-old female history of thrombocytosis for which she is on a full dose aspirin, diabetes, hypertension, ID with prior cholecystectomy. Reportedly today had hematemesis at home. Also with dark blood with loose stools. She had blood in her stools about 2 weeks ago with 2 syncopal episodes was not seen at that time. She denies any prior history of GI bleed. She is on no other blood thinners besides the aspirin. Prior similar symptoms: No Recent Illness/Hospitalization: No PFSH PFSH Medical History Anxiety Arthralgia, cervical spine Atherosclerotic heart disease of [place] coronary artery without angina pectoris Diabetes type 2, controlled Elbow fracture Essential hypertension Facial bone fracture Heart murmur Hyperlipidemia Hypothyroidism Knee fracture LVH (left ventricular hypertrophy) Mitral valve annular calcification Myalgia Neuropathy Obesity Psoriasis Splenomegaly Thrombocytosis UTI (urinary tract infection) Vagal reaction Home Medications enalapril maleate 10 mg tablet 10 mg PO BID 01/05/18 [History Last Taken 04/27/22] diazepam 2 mg tablet (Valium) 2 mg PO TID PRN dizziness #20 tabs 09/13/20 [Rx Last Taken Unknown] aspirin 325 mg tablet 325 mg PO DAILY BLOOD THINNER 10/10/20 [History Last Taken 04/15/22] hokpliqyojhmqxvynlskaf-cfklrfsv-fwhigxhu 80 0.5 %-1 %-0.5 % eye drops (Refresh Digital) 1 drp ophthalmic (eye) 8-12XD PRN Dry Eye(S) 08/26/21 [History Last Taken 04/26/22] clobetasol 0.05 % shampoo 1 applic topical DAILY PRN PSORASIS 08/26/21 [History Last Taken Unknown] ergocalciferol (vitamin D2) 50 mcg (2,000 unit) capsule 50 mcg PO MOWEFR S UPPLEMENT 08/26/21 [History Last Taken 04/26/22] levothyroxine 50 mcg tablet 75 mcg PO DAILY #135 tabs 08/28/21 [Rx Last Taken 04/27/22] carvedilol 6.25 mg tablet 6.25 mg PO BID #180 tabs 11/05/21 [Rx Last Taken 04/27/22] calcitriol 3 mcg/gram topical ointment 1 applic topical BID PRN PSORAISIS 11/27/21 [History Last Taken Unknown] clobetasol 0.05 % lotion (Clobex) 1 applic topical DAILY PRN PSORAISIS 11/27/21 [History Last Taken Unknown] halobetasol propionate 0.05 % topical cream 1 applic topical DAILY PRN PSORASIS 11/27/21 [History Last Taken Unknown] hydroxyurea 500 mg capsule 500 mg PO DAILY #90 caps 02/17/22 [Rx Last Taken 04/27/22] coQ10 (ubiquinol) 100 mg capsule 100 mg PO TUTHSA MUSCLE CRAMPS 04/27/22 [History Last Taken 04/24/22] pravastatin 10 mg tablet 10 mg PO TUTHSA CHOLESTEROL 04/27/22 [History Last Taken 04/24/22] Allergy/AdvReac Type Severity Reaction Status Date / Time codeine Allergy Severe Unknown Verified 04/27/22 10:06 metformin AdvReac Severe diarrhea Verified 04/27/22 10:06 ciprofloxacin [From Cipro] AdvReac Nausea Verified 04/27/22 10:06 Family History Grandmother Diabetes Father Heart disease High cholesterol Mother Heart disease Surgical History Hx of cholecystectomy Previous back surgery S/P tonsillectomy and adenoidectomy Social History household members: spouse Smoking Status: Never smoker second hand exposure: No alcohol intake: current alcohol intake frequency: a few times a month details: Rare. substance use type: does not use ROS ROS ED ROS Narrative Nausea and vomiting. Hematemesis and melena. Review of Systems ROS Unobtainable: Denies due to encephalopathy Constitutional Constitutional ED: Denies chills or fever(s) Cardiovascular Cardiovascular: Denies chest pain Gastrointestinal Gastrointestinal: Reports abdominal pain, melena, nausea and vomiting; Denies constipation or diarrhea Genitourinary Genitourinary ED: Denies dysuria or hematuria Musculoskeletal Musculoskeletal: Denies arthralgias Integumentary Denies abscess Neurologic Neurologic: Denies headache(s) Psychiatric Psychiatric: Denies anxiety Endocrine Endocrinology: Denies polydipsia Hematologic/Lymphatic Hematologic/Lymphatic: Denies easy bleeding Allergic/Immunologic Allergic/Immunologic ED: Denies mouth swelling or tongue swelling EXAM Physical Exam Narrative Exam Narrative: 71-year-old appears pale. Vital signs are stable. Her initial blood pressure was 110/73. Pulse is 88. Pulse ox is 98% on room air no hypoxia. H EENT exam unremarkable. Neck nontender no lymphadenopathy. Lungs clear. Heart regular rhythm rate about 90. Chest wall nontender. Abdomen soft nontender. No ndistended. No peritoneal signs. Moving all 4 extremities. Palpable radial pulse. Neurologically awake and alert. Patient did have maroon stools in the toilet. With clots. Const Vital Signs: 04/27/22 10:03 Temperature 98.6 F Temperature Source Temporal Pulse Rate 88 Respiratory Rate 14 Blood Pressure 110/73 Blood Pressure Mean 85 Pulse Ox 98 Oxygen Delivery Method Room Air Positive well nourished and well developed; Negative for cachectic, contractures or unkempt General Appearance ED: well developed, NAD and pallor; Negative for unkempt, cachectic or contractures Nutritional Appearance: Negative for cachectic HEENT Reports moist mucous membranes normocephalic and atraumatic; Negative for trauma or tenderness Eyes PERRL and EOMs intact bilaterally General Eye ED: Yes pale conjunctiva; Negative for scleral icterus Neck no lymphadenopathy, supple and no JVD General: Negative for tenderness Carotids: Negative for other Lymph Lymphatic: Negative for other Resp normal respiratory effort and clear to auscultation bilaterally Effort and Inspection: Negative for respiratory distress Auscultation: Negative for rales, rhonchi or wheezes Cardio regular rate, regular rhythm, S1 normal heart sound, S2 normal heart sound and no murmurs Rate: Negative for bradycardia Rhythm: Negative for abnormal rhythm GI non-tender, non-distended and no masses Inspection: Negative for abdominal distention Auscultation: normoactive bowel sounds Palpation: soft; Negative for tender or guarding Back/Spine no CVA tenderness General Back: Negative for CVA tenderness Cervical Spine: Negative for cervical spine tenderness Thoracic Spine / Upper Back: Negative for thoracic spinal tenderness Lumbar Spine / Lower Back: Negative for lumbar spinal tenderness Coccyx: Negative for other Extremity full ROM General Extremety ED: Negative for edema or tenderness General Extremity: Negative for edema Neuro CN's II-XII intact bilaterally and moves all extremities Sensorium / Orientation: alert, oriented to person, oriented to place and oriented to time; Negative for orientation impaired, confused, lethargic or stuporous Motor Exam: strength 5/5 throughout Psych mental status grossly normal and thought process normal Appearance: Negative for unkempt Attitude: No agitated Mood & Affect: Negative for depressed, anxious or tearful Skin no wounds General Skin Exam: pallor; Negative for jaundice Lesions: no lesions Rashes: no rashes Trauma: Negative for abrasion Nails: Negative for discolored MDM MDM MDM Narrative Medical decision making narrative: 71-year-old female with a complaint of hematemesis and melena. Concern is obviously for GI bleed suspect upper. Clinically looks pale and ill. 2 large bore IVs have been started. She will be typed and crossed. Labs to be obtained. She will need to be admitted for further evaluation, treatment and endoscopy. She will be also treated with IV Protonix here. Eliezer exam patient is doing well. Blood pressures like 119/73. Patient is nausea is improved with Zofran. She is resting comfortably. I have gone over the CBC with the family. I am awaiting for other labs to return. I have suzi reed spoken to Dr. Lieberman of GI. She will be admitted to the hospitalist. Remain NPO. He plans on doing endoscopy. At this moment the patient does not need a blood transfusion. We will need to watch her blood counts closely. Patient and family are aware of the plan. Lab Data Attestation: I reviewed the patient's lab results. Lab results narrative: CBC shows a white count of 15.2. H&H of 10.5 and 32.6. Patient has thrombocytosis and has a platelet count of 693. PT is 16.3 INR 1.3. PTT is 27.1. Chemistries this sodium 133. Potassium 5.2. Gap is 9. BUN of 24 which could be secondary to the upper GI bleed. Creatinine 0.96. Glucose 222. Liver enzymes unremarkable. Lipase only 59. Labs: Laboratory Results - last 24 hr 04/27/22 04/27/22 04/27/22 10:42 10:42 10:42 WBC 15.2 H RBC 3.03 L Hgb 10.5 L Hct 32.6 L MCV 107.6 H MCH 34.7 H MCHC 32.2 RDW Std Deviation 54.2 H RDW Coeff of Lucas 13.8 Plt Count 693 H MPV 11.6 Immature Gran % (Auto) 0.800 Neut % (Auto) 87.6 H Lymph % (Auto) 7.5 L [place] % (Auto) 3.6 Eos % (Auto) 0.1 Baso % (Auto) 0.4 Absolute Neuts (auto) 13.3 H Absolute Lymphs (auto) 1.14 Nucleated RBC % 0 PT INR APTT Sodium 133 L Potassium 5.2 H Chloride 102 Carbon Dioxide 22.0 Anion Gap 9 BUN 24 H Creatinine 0.96 Estim Creat Clear Calc 53.03 Est GFR (MDRD) Af Amer 74 Est GFR (MDRD) Non-Af 61 BUN/Creatinine Ratio 25.0 H Glucose 222 H Calcium 8.4 L Total Bilirubin 0.50 AST 13 L ALT 16 Alkaline Phosphatase 51 Total Protein 6.2 L Albumin 3.1 L Globulin 3.1 Albumin/Globulin Ratio 1.0 Lipase 59 L Crossmatch See Detail 04/27/22 10:42 WBC RBC Hgb Hct MCV MCH MCHC RDW Std Deviation RDW Coeff of Lucas Plt Count MPV Immature Gran % (Auto) Neut % (Auto) Lymph % (Auto) [place] % (Auto) Eos % (Auto) Baso % (Auto) Absolute Neuts (auto) Absolute Lymphs (auto) Nucleated RBC % PT 16.3 H INR 1.3 APTT 27.1 Sodium Potassium Chloride Carbon Dioxide Anion Gap BUN Creatinine Estim Creat Clear Calc Est GFR (MDRD) Af Amer Est GFR (MDRD) Non-Af BUN/Creatinine Ratio Glucose Calcium Total Bilirubin AST ALT Alkaline Phosphatase Total Protein Albumin Globulin Albumin/Globulin Ratio Lipase Crossmatch Critical Care Time Critical Care Time: Yes Critical care time (excluding procedures): 30-74 minutes, Including time spent:, Discussing w/Patient &/or Family/Soccer Player, Discussing w/Consultants, Arranging Admission or Transfer, Performing Direct Patient Care at Bedside and - (33 minutes) Discharge Plan Dx/Rx/DC Orders Clinical Impression: Acute upper gastrointestinal bleeding, Anemia, Hx of thrombocytosis Disposition Disposition: Acute Care [facility]
[2022-04-27] MEDS: 0.9% Normal Saline 1,000 ML 1000 ML IV (10:42)
[2022-04-27] MEDS: Ondansetron 4 MG/2 ML Vial IV (10:42)
[2022-04-27 10:52] LABS: Absolute Lymphocyte Count 1.14 X10^3/uL (0.83-4.51); Absolute Neutrophil Count 13.3 X10^3/uL (2.0-7.7); Basophil# 0.06 X10^3/uL; Basophil% 0.4 % (0-1); Eosinophil# 0.02 X10^3/uL; Eosinophils% 0.1 % (0-5); Hematocrit 32.6 % (37-47); Hemoglobin 10.5 g/dL (12.0-15.0); Lymphocyte # 1.14 X10^3/ul (0.83-4.51); Lymphocyte % 7.5 % (19-41); Mean Corp Hgb Conc 32.2 g/dL (32-36); Mean Corpuscular Hgb 34.7 pg (27.0-32.0); Mean Corpuscular Volume 107.6 fL (81-99); Mean Platelet Vol. 11.6 fl (6.2-12.0); Monocyte# 0.55 X10^3/uL; Monocyte% 3.6 % (0-10); NRBC Flagged by Analyzer 0 % (0-5); Neutrophil # 13.29 X10^3/uL (2.7-7.7); Neutrophil % 87.6 % (47-70); Platelet Count 693 K/mm3 (150-450); RBC Distribution Width CV 13.8 % (11.6-14.6); RBC Distribution Width SD 54.2 fl (35.1-43.9); Red Blood Count 3.03 M/mm3 (4.2-5.4); White Blood Count 15.2 K/mm3 (4.4-11.0)
[2022-04-27 11:04] LABS: International Normalized Ratio 1.3; Prothrombin Time (Protime)PT. 16.3 SECONDS (11.7-14.9)
[2022-04-27 11:05] LABS: Partial Thromboplast Time 27.1 Seconds (24.1-36.2)
[2022-04-27 11:08] LABS: AST(SGOT) 13 U/L (15-37); Alanine Aminotransfer ALT/SGPT 16 U/L (13-56); Albumin, Serum 3.1 g/dL (3.2-5.0); Alkaline Phosphatase 51 U/L (45-117); Anion Gap 9 (5-15); BUN 24 mg/dL (7-18); Calcium,Total 8.4 mg/dL (8.5-10.1); Chloride 102 mmol/L (98-107); Creatinine, Serum 0.96 mg/dL (0.55-1.02); EST Glomerular Filtration Rate 61 mL/min (>60); Est Glom Filt Rate - Afr Amer 74 mL/min (>60); Estimated Creatinine Clearance 53.03 ml/min; Globulin 3.1 g/dL (2.2-4.2); Glucose 222 mg/dL (74-106); Lipase 59 U/L (73-393); Potassium 5.2 mmol/L (3.5-5.1); Protein, Total 6.2 g/dL (6.4-8.2); Sodium Level 133 mmol/L (136-145)
--- NOTE | 2022-04-27 11:09 | NURSING ---
HOSPITALIST PAGED DR MARRUFO PAGED
--- NOTE | 2022-04-27 11:33 | NURSING ---
DR MARAL MANCINI
--- NOTE | 2022-04-27 11:41 | NURSING ---
PCU TERELETSKY UPPER GI BLEED, ANEMIA, HX OF THROMBOCYTOSIS
[2022-04-27 13:11] LABS: Hematocrit 29.7 % (37-47); Hemoglobin 9.5 g/dL (12.0-15.0)
[2022-04-27] MEDS: 0.9% Normal Saline 1,000 ML 100 ML IV (13:53)
[2022-04-27] MEDS: Lactated Ringers 1,000 ML 15 ML IV (15:00)
--- NOTE | 2022-04-27 16:41 | CON.PCM.GI_ITS ---
HPI Consult Data Date of Consult: 04/27/22 HPI Narrative Reason for Consultation: GI bleed HPI Narrative: JUSTIN GORE, is a 71 F who presents with multiple episodes of GI bleed. She also has a past medical history of thrombocytosis for which she is on a full dose aspirin, diabetes, hypertension, [place] with prior cholecystectomy.? Reportedly today had hematemesis at home.? Also with dark blood with loose stools.? She had blood in her stools about 2 weeks ago with 2 syncopal episodes was not seen at that time.? She denies any prior history of GI bleed.? She is on no other blood thinners besides the aspirin. She also has a history of underlying CAD/coronary artery calcification, non-ST segment elevation SD, valvular heart disease/aortic valve disease, hyperlipidemia, hypertension, superimposed upon a history of thrombocytosis, di abetes mellitus, and thyroid disease.? I was consulted for GI bleed. [facility] Medical History Anxiety Arthralgia, cervical spine Atherosclerotic heart disease of [place] coronary artery without angina pectoris Diabetes type 2, controlled Elbow fracture Essential hypertension Facial bone fracture Heart murmur Hyperlipidemia Hypothyroidism Knee fracture LVH (left ventricular hypertrophy) Mitral valve annular calcification Myalgia Neuropathy Obesity Psoriasis Splenomegaly Thrombocytosis UTI (urinary tract infection) Vagal reaction Home Medications enalapril maleate 10 mg tablet 10 mg PO BID 01/05/18 [History Last Taken 04/27/22] diazepam 2 mg tablet (Valium) 2 mg PO TID PRN dizziness #20 tabs 09/13/20 [Rx Last Taken Unknown] aspirin 325 mg tablet 325 mg PO DAILY BLOOD THINNER 10/10/20 [History Last Taken 04/15/22] etaqbkgdfgyvowfvcjmggb-hewfffsp-lalkopku 80 0.5 %-1 %-0.5 % eye drops (Refresh Digital) 1 drp ophthalmic (eye) 8-12XD PRN Dry Eye(S) 08/26/21 [History Last Taken 04/26/22] clobetasol 0.05 % shampoo 1 applic topical DAILY PRN PSORASIS 08/26/21 [History Last Taken Unknown] ergocalciferol (vitamin D2) 50 mcg (2,000 unit) capsule 50 mcg PO MOWEFR SUPPLEMENT 08/26/21 [History Last Taken 04/26/22] levothyroxine 50 mcg tablet 75 mcg PO DAILY #135 tabs 08/28/21 [Rx Last Taken 04/27/22] carvedilol 6.25 mg tablet 6.25 mg PO BID #180 tabs 11/05/21 [Rx Last Taken 04/27/22] calcitriol 3 mcg/gram topical ointment 1 applic topical BID PRN PSORAISIS 11/27/21 [History Last Taken Unknown] clobetasol 0.05 % lotion (Clobex) 1 applic topical DAILY PRN PSORAISIS 11/27/21 [History Last Taken Unknown] halobetasol propionate 0.05 % topical cream 1 applic topical DAILY PRN PSORASIS 11/27/21 [History Last Taken Unknown] hydroxyurea 500 mg capsule 500 mg PO DAILY #90 caps 02/17/22 [Rx Last Taken 04/27/22] coQ10 (ubiquinol) 100 mg capsule 100 mg PO TUTHSA MUSCLE CRAMPS 04/27/22 [History Last Taken 04/24/22] pravastatin 10 mg tablet 10 mg PO TUTHSA CHOLESTEROL 04/27/22 [History Last Taken 04/24/22] Allergy/AdvReac Type Severity Reaction Status Date / Time codeine Allergy Severe Unknown Verified 04/27/22 10:06 metformin AdvReac Severe diarrhea Verified 04/27/22 10:06 ciprofloxacin [From Cipro] AdvReac Nausea Verified 04/27/22 10:06 Family History Grandmother Diabetes Father Heart disease High cholesterol Mother Heart disease Surgical History Hx of cholecystectomy Previous back surgery S/P tonsillectomy and adenoidectomy Social History household members: spouse Smoking Status: Never smoker second hand exposure: No alcohol intake: current alcohol intake frequency: a few times a month details: Rare. substance use type: does not use ROS Constitutional Constitutional: Reports systems reviewed and no addt'l complaints, except as documented Eyes Eyes: Reports systems reviewed and no addt'l complaints, except as documented ENT HEENT: Reports systems reviewed and no addt'l complaints, except as documented Cardiovascular Cardiovascular: Reports systems reviewed and no addt'l complaints, except as documented Respiratory/Chest Respiratory/Chest: Reports systems reviewed and no addt'l complaints, except as documented Gastrointestinal Gastrointestinal: Reports systems reviewed and no addt'l complaints, except as documented Genitourinary Genitourinary: Reports systems reviewed and no addt'l complaints, except as documented Musculoskeletal Musculoskeletal: Reports systems reviewed and no addt'l complaints, except as documented Integumentary Integumentary: Reports systems reviewed and no addt'l complaints, except as documented Neurologic Neurologic: Reports systems reviewed and no addt'l complaints, except as documented Psychiatric Psychiatric: Reports systems reviewed and no addt'l complaints, except as documented Endocrine Endocrinology: Reports systems reviewed and no addt'l complaints, except as doc umented Hematologic/Lymphatic Hematologic/Lymphatic: Reports systems reviewed and no addt'l complaints, except as documented Allergic/Immunologic Allergic/Immunologic: Reports systems reviewed and no addt'l complaints, except as documented Physical Exam Const alert, oriented x3, no apparent distress and average body habitus General Appearance: cooperative and comfortable HEENT normocephalic, external ears normal and external nose normal Eyes PERRL, EOMs intact bilaterally, conjunctivae normal and no scleral icterus Neck supple Lymph Lymphatic: no lymphadenopathy noted Resp normal respiratory effort and clear to auscultation bilaterally Cardio regular rate, regular rhythm, S1 normal heart sound, S2 normal heart sound and no murmurs GI normal to inspection, nondistended, normoactive bowel sounds no CVA tenderness Back/Spine thoracic and lumbar spine normal to inspection Extremity normal to inspection, no joint enlargement and no clubbing, cyanosis or edema Skin no rashes or lesions noted Skin Narrative: +scaly rash elbows, knee Neuro oriented x3, CN's II-XII intact bilaterally, moves all extremities and no focal motor deficits Psych mental status grossly normal Lab / Micro Data Result Diagrams: 04/27/22 12:55 04/27/22 10:42 Labs: Laboratory Results - last 24 hr 04/27/22 10:42: WBC 15.2 H, RBC 3.03 L, Hgb 10.5 L, Hct 32.6 L, MCV 107.6 H, MCH 34.7 H, MCHC 32.2, RDW Std Deviation 54.2 H, RDW Coeff of Lucas 13.8, Plt Count 693 H, MPV 11.6, Immature Gran % (Auto) 0.800, Neut % (Auto) 87.6 H, Lymph % (Auto) 7.5 L, [place] % (Auto) 3.6, Eos % (Auto) 0.1, Baso % (Auto) 0.4, Absolute Neuts (auto) 13.3 H, Absolute Lymphs (auto) 1.14, Nucleated RBC % 0 04/27/22 10:42: Sodium 133 L, Potassium 5.2 H, Chloride 102, Carbon Dioxide 22.0 , Anion Gap 9, BUN 24 H, Creatinine 0.96, Estim Creat Clear Calc 53.03, Est GFR (MDRD) Af Amer 74, Est GFR (MDRD) Non-Af 61, BUN/Creatinine Ratio 25.0 H, Glucose 222 H, Calcium 8.4 L, Total Bilirubin 0.50, AST 13 L, ALT 16, Alkaline Phosphatase 51, Total Protein 6.2 L, Albumin 3.1 L, Globulin 3.1, Albumin/Globulin Ratio 1.0, Lipase 59 L 04/27/22 10:42: Blood Type A POSITIVE, Antibody Screen NEGATIVE, Crossmatch See Detail 04/27/22 10:42: PT 16.3 H, INR 1.3, APTT 27.1 04/27/22 12:55: Hgb 9.5 L, Hct 29.7 L Assessment & Plan Assessment/Plan (1) Acute upper gastrointestinal bleeding: PLAN: The most likely etiology of upper GI bleed is secondary to NSAIDs from a full dose aspirin. She will undergo an upper endoscopy to evaluate upper GI tract. She will receive Protonix therapy. She was explained alternatives, risk, benefits including not withstanding bleeding, infection, sepsis, perforation, need for emergent . Have an ASA of 3. Charges/Coding Visit Charges Inpatient E&M: 95450 Init Hosp L2
--- NOTE | 2022-04-27 17:31 | OP.CCLET_ITS ---
04/27/2022 [address] [place] [address] Re : Upper GI endoscopy procedure for Nighat Ghotra Dear Dr. Galeano This procedure was performed on Wednesday, April 27, 2022. My impressions and recommendations are as follows: Impressions : - Normal esophagus. - Red blood in the entire stomach. - No gross lesions in the second portion of the duodenum. - Dieulafoy lesion of stomach. - No specimens collected. Recommendations : - [facility]. - Give Protonix (pantoprazole): initiate therapy with 80 mg IV bolus, then 8 mg/hr IV by continuous infusion. - Administer an IV bolus of 50 micrograms of octreotide followed by an infusion of 50 micrograms per hour today. -CT scan to look for signs of portal hypertension and/or cirrhosis - No aspirin, ibuprofen, naproxen, or other non-steroidal anti-inflammatory drugs. My findings are described in the full procedure note, which is enclosed. If I can be of further assistance, please feel free to contact me at . Sincerely, Ruddy Lieberman, 04/27/2022 5:31:30 PM This report has been signed electronically.
--- NOTE | 2022-04-27 17:31 | OP.EGD_ITS ---
Patient Name: Nighat Ghotra Procedure Date: 04/27/2022 4:28 PM Date of : 1950 Age: 71 Procedure: Upper GI endoscopy Indications: Hematemesis, Melena Providers: Ruddy Lieberman DO Medicines: Monitored Anesthesia Care Patient Profile: This is a 71 year old female. Refer to note in patient chart for documentation of history and physical. Patient has symptoms. Complications: No immediate complications. Procedure: Pre-Anesthesia Assessment: - Prior to the procedure, a History and Physical was performed, and patient medications and allergies were reviewed. The patient is competent. The risks and benefits of the procedure and the sedation options and risks were discussed with the patient. All questions were answered and informed consent was obtained. Patient identification and proposed procedure were verified by the physician. Mental Status Examination: normal. Prophylactic Antibiotics: The patient does not require prophylactic antibiotics. Prior Anticoagulants: The patient has taken no previous anticoagulant or antiplatelet agents. After reviewing the risks and benefits, the patient was deemed in satisfactory condition to undergo the procedure. The anesthesia plan was to use monitored anesthesia care (MAC). Immediately prior to administration of medications, the patient was re-assessed for adequacy to receive sedatives. The heart rate, respiratory rate, oxygen saturations, blood pressure, adequacy of pulmonary ventilation, and response to care were monitored throughout the procedure. The physical status of the patient was re-assessed after the procedure. After obtaining informed consent, the endoscope was passed under direct vision. Throughout the procedure, the patient's blood pressure, pulse, and oxygen saturations were monitored continuously. The gastroscope was introduced through the mouth, and advanced to the second part of duodenum. The upper GI endoscopy was accomplished without difficulty. The patient tolerated the procedure well. Scope In: 4:49:35 PM Scope Out: 5:24:38 PM Total Procedure Duration Time 0 hours 35 minutes 3 seconds Findings: The examined esophagus was normal. Red blood was found in the entire examined stomach. No gross lesions were noted in the second portion of the duodenum. A Dieulafoy lesion with oozing bleeding and stigmata of recent bleeding was found in the cardia. Coagulation for hemostasis using heater probe was successful. Estimated blood loss was minimal. Impression: - Normal esophagus. - Red blood in the entire stomach. - No gross lesions in the second portion of the duodenum. - [place]ulafoy lesion of stomach. - No specimens collected. Recommendation: - [facility]. - Give Protonix (pantoprazole): initiate therapy with 80 mg IV bolus, then 8 mg/hr IV by continuous infusion. - Administer an IV bolus of 50 micrograms of octreotide followed by an infusion of 50 micrograms per hour today. -CT scan to look for signs of portal hypertension and/or cirrhosis - No aspirin, ibuprofen, naproxen, or other non-steroidal anti-inflammatory drugs. Procedure Code(s): --- Professional --- 54431, Esophagogastroduodenoscopy, flexible, transoral; with control of bleeding, any method CPT copyright 2017 [employer]. All rights reserved. The codes documented in this report are preliminary and upon medical record coder review may be revised to meet current compliance requirements. Ruddy Lieberman DO 04/27/2022 5:31:30 PM This report has been signed electronically. Number of Addenda: 0 Note Initiated On: 04/27/2022 4:28 PM
--- NOTE | 2022-04-27 17:44 | CT_ITS ---
STUDY: CT ABDOMEN AND PELVIS WITH CONTRAST REASON FOR EXAM: Female, 71 years old. hematemesis -- gastric varices seen on endoscopy RADIATION DOSAGE (If Supplied By Facility): CTDIvol = ( 17.48 ) mGy, DLP = ( 1099.10 ) mGycm TECHNIQUE: Transaxial images were obtained from the dome of the diaphragm to the symphysis pubis without oral contrast. IV 100mL Isovue-370 was administered. Sagittal and coronal images were reconstructed. Individualized dose optimization techniques were used for this CT. COMPARISON: None. FINDINGS: The visualized lung bases are unremarkable. The visualized portions of the heart are within normal limits. Mild fatty infiltrated liver without mass or bile duct dilatation gallbladder has been removed surgically. Normal spleen. Normal pancreas. Normal bilateral adrenal glands. Normal right kidney. Normal left kidney. Mild thickening of the gastric fundal folds consistent with nonspecific gastritis. Normal small intestine. Normal colon. No evidence for acute appendicitis Mild atherosclerotic changes of the aorta without evidence for aneurysm. Normal inferior vena cava. Normal retroperitoneum. Normal urinary bladder. There is a large hernia of the left anterior lateral lower abdominal and pelvic wall containing loops of large and small bowel without evidence for proximal obstruction or incarceration.. Lumbar spine demonstrates mild degenerative change. CT/Abdomen/Pelvis W IV Cont ONLY IMPRESSION: Mild nonspecific fatty infiltration of the liver.. Findings which may be consistent with nonspecific gastritis. No evidence for small bowel obstruction. Incidental finding of large left lower quadrant hernia without evidence for proximal obstruction or incarceration No evidence for focal intraluminal contrast extravasation to suggest acute GI hemorrhage at this time Electronically Signed: Cal Kaur MD at 21:44 EST ,
[2022-04-27 18:00] LABS: Hematocrit 27.2 % (37-47); Hemoglobin 8.8 g/dL (12.0-15.0)
--- NOTE | 2022-04-27 18:24 | HP.PCM.HOS_ITS ---
HPI - General General Date of Admission: 04/28/22 Date of Service: 04/27/22 Chief Complaint: Hematemesis, melanotic stool HPI Narrative JUSTIN GORE, is a 71 F who presents to the emergency room at [facility] with complaints of hematemesis this morning with melanotic stool. She had an episode of bright red rectal bleeding approximately week ago and was told to stop her adult aspirin which she takes due to elevated platelet count. Patient is not on any PPI or H2 ricky at home. She denies taking regular ibuprofen but does take it occasionally. Work-up in the emergency room showed the patient's hemoglobin to be 10.5, potassium was 5.2, BUN was 24, and glucose was 222. Patient was typed and crossed for 2 units of packed red blood cells and she was placed in observation status on PCU for acute upper GI bleed, serial H&H's will be obtained and patient will be kept on a continuous Protonix drip. Patient will be seen by gastroenterology and undergo an upper endoscopy today. [facility] Medical History Anxiety Arthralgia, cervical spine Atherosclerotic heart disease of [place] coronary artery without angina pectoris Diabetes type 2, controlled Elbow fracture Essential hypertension Facial bone fracture Heart murmur Hyperlipidemia Hypothyroidism Knee fracture LVH (left ventricular hypertrophy) Mitral valve annular calcification Myalgia Neuropathy Obesity Psoriasis Splenomegaly Thrombocytosis UTI (urinary tract infection) Vagal reaction Home Medications enalapril maleate 10 mg tablet 10 mg PO BID 01/05/18 [History Last Taken 04/27/22] diazepam 2 mg tablet (Valium) 2 mg PO TID PRN dizziness #20 tabs 09/13/20 [Rx Last Taken Unknown] aspirin 325 mg tablet 325 mg PO DAILY BLOOD THINNER 10/10/20 [History Last Taken 04/15/22] qysmeqevojghtxkzjkjmgm-zufqvuuz-buhfcybp 80 0.5 %-1 %-0.5 % eye drops (Refresh Digital) 1 drp ophthalmic (eye) 8-12XD PRN Dry Eye(S) 08/26/21 [History Last Taken 04/26/22] clobetasol 0.05 % shampoo 1 applic topical DAILY PRN PSORASIS 08/26/21 [History Last Taken Unknown] ergocalciferol (vitamin D2) 50 mcg (2,000 unit) capsule 50 mcg PO MOWEFR SUPPLEMENT 08/26/21 [History Last Taken 04/26/22] levothyroxine 50 mcg tablet 75 mcg PO DAILY #135 tabs 08/28/21 [Rx Last Taken 04/27/22] carvedilol 6.25 mg tablet 6.25 mg PO BID #180 tabs 11/05/21 [Rx Last Taken 04/27/22] calcitriol 3 mcg/gram topical ointment 1 applic topical BID PRN PSORAISIS 11/27/21 [History Last Taken Unknown] clobetasol 0.05 % lotion (Clobex) 1 applic topical DAILY PRN PSORAISIS 11/27/21 [History Last Taken Unknown] halobetasol propionate 0.05 % topical cream 1 applic topical DAILY PRN PSORASIS 11/27/21 [History Last Taken Unknown] hydroxyurea 500 mg capsule 500 mg PO DAILY #90 caps 02/17/22 [Rx Last Taken 04/27/22] coQ10 (ubiquinol) 100 mg capsule 100 mg PO TUTA MUSCLE CRAMPS 04/27/22 [History Last Taken 04/24/22] pravastatin 10 mg tablet 10 mg PO TUTHSA CHOLESTEROL 04/27/22 [History Last Taken 04/24/22] Allergy/AdvReac Type Severity Reaction Status Date / Time codeine Allergy Severe Unknown Verified 04/27/22 10:06 metformin AdvReac Severe diarrhea Verified 04/27/22 10:06 ciprofloxacin [From Cipro] AdvReac Nausea Verified 04/27/22 10:06 Family History Grandmother Diabetes Father Heart disease High cholesterol Mother Heart disease Surgical History Hx of cholecystectomy Previous back surgery S/P tonsillectomy and adenoidectomy Social History household members: spouse Smoking Status: Never smoker second hand exposure: No alcohol intake: current alcohol intake frequency: a few times a month details: Rare. substance use type: does not use ROS Constitutional Constitutional: Denies anorexia, change in weight, chills, fatigue, fever(s), malaise, night sweats or weakness Eyes Eyes: Denies blurry vision, change in vision, discharge from eye(s) or eye pain Cardiovascular Cardiovascular: Denies chest pain, claudication, edema or palpitations Respiratory/Chest Respiratory/Chest: Denies cough, hemoptysis, shortness of breath at rest or shortness of breath with exertion Gastrointestinal Gastrointestinal: Reports hematemesis, melena, nausea and vomiting; Denies abdom inal pain, constipation, diarrhea or hematochezia Genitourinary Genitourinary: Denies difficulty urinating, dysuria, hematuria, nocturia, urinary frequency, urinary hesitancy, urinary incontinence or urinary urgency Musculoskeletal Musculoskeletal: Denies back pain, joint pain, joint stiffness, joint swelling, myalgias or neck pain Neurologic Neurologic: Denies abnormal gait, abnormal speech, confusion, disequilibrium, dizziness, focal weakness, headache(s), loss of vision, numbness, other visual disturbances, paresthesias, syncope or tingling Psychiatric Psychiatric: Denies anxiety, cognitive impairment, depression, homicidal ideation, irritability, mood swings or suicidal ideation Endocrine Endocrinology: Denies change in body appearance, cold intolerance, excessive sweating, heat intolerance, polydipsia or polyuria Hematologic/Lymphatic Hematologic/Lymphatic: Denies none, anemia, easy bleeding, easy bruising or lymphadenopathy Allergic/Immunologic Allergic/Immunologic: Denies rhinitis, urticaria, eczemia or asthma Vital Signs Vital Signs Vital Signs: 04/27/22 10:03 04/27/22 11:50 04/27/22 12:19 Temperature 98.6 F 98 F 98.7 F Temperature Source Temporal Temporal Temporal Pulse Rate 88 73 73 Respiratory Rate 14 15 16 Respiratory Pattern Blood Pressure 110/73 130/51 H 125/51 H Blood Pressure Mean 85 77 73 Blood Pressure Source Monitor Blood Pressure Position Semi-Fowlers Blood Pressure Location Right Arm Baseline BP Pulse Ox 98 98 100 Oxygen Delivery Method Room Air Room Air Room Air 04/27/22 17:35 04/27/22 17:40 04/27/22 17:50 Temperature 98.7 F 98.3 F Temperature Source Temporal Temporal Pulse Rate 89 81 80 Respiratory Rate 16 16 16 Respiratory Pattern Normal Blood Pressure 127/73 H 127/62 H 123/71 H Blood Pressure Mean 91 83 88 Blood Pressure Source Monitor Monitor Monitor Blood Pressure Position Semi-Fowlers Semi-Fowlers Semi-Fowlers Blood Pressure Location Left Arm Left Arm Left Arm Baseline BP 130/51 130/51 130/51 Pulse Ox 98 100 99 Oxygen Delivery Method Room Air Room Air Room Air 04/27/22 17:45 Temperature Temperature Source Pulse Rate 79 Respiratory Rate 16 Respiratory Pattern Blood Pressure 133/72 H Blood Pressure Mean 92 Blood Pressure Source Monitor Blood Pressure Position Semi-Fowlers Blood Pressure Location Left Arm Baseline BP 130/51 Pulse Ox 98 Oxygen Delivery Method Room Air Weight Weight: 93.1 kg Body Mass Index (BMI) 32.1 Physical Exam Const alert, oriented x3, no apparent distress and healthy appearing General Appearance: cooperative, well kempt and well developed Orientation / Consciousness: awake, oriented to person, oriented to place and oriented to time HEENT normocephalic and moist oral mucous membranes Eyes PERRL, EOMs intact bilaterally and conjunctivae normal Neck supple, no JVD, thyroid normal and no carotid bruits General: trachea midline Resp normal respiratory effort, no retractions, no use of accessory muscles and clear to auscultation bilaterally Auscultation: Negative for rales, rhonchi or wheezes Cardio regular rate, regular rhythm, S1 normal heart sound, S2 normal heart sound, no rub and no gallops Cardio Narrative: There is a 2/6 systolic murmur noted at the apex and left sternal border GI normal to inspection, nondistended, normoactive bowel sounds, soft to palpation, non-tender and non-distended Extremity no clubbing, cyanosis or edema Skin no rashes or lesions noted General Skin Exam: no breakdown Neuro oriented x3, CN's II-XII intact bilaterally, no focal motor deficits and no sensory deficits noted Sensorium / Orientation: awake and alert Speech: speech normal Psych affect normal Results Lab / Micro Data Result Diagrams: 04/28/22 12:35 04/28/22 05:18 Labs: Laboratory Results - last 24 hr 04/27/22 10:42: WBC 15.2 H, RBC 3.03 L, Hgb 10.5 L, Hct 32.6 L, MCV 107.6 H, MCH 34.7 H, MCHC 32.2, RDW Std Deviation 54.2 H, RDW Coeff of Lucas 13.8, Plt Count 693 H, MPV 11.6, Immature Gran % (Auto) 0.800, Neut % (Auto) 87.6 H, Lymph % (Auto) 7.5 L, Taney % (Auto) 3.6, Eos % (Auto) 0.1, Baso % (Auto) 0.4, Absolute Neuts (auto) 13.3 H, Absolute Lymphs (auto) 1.14, Nucleated RBC % 0 04/27/22 10:42: Sodium 133 L, Potassium 5.2 H, Chloride 102, Carbon Dioxide 22.0, Anion Gap 9, BUN 24 H, Creatinine 0.96, Estim Creat Clear Calc 53.03, Est GFR (MDRD) Af Amer 74, Est GFR (MDRD) Non-Af 61, BUN/Creatinine Ratio 25.0 H, Glucose 222 H, Calcium 8.4 L, Total Bilirubin 0.50, AST 13 L, ALT 16, Alkaline Phosphatase 51, Total Protein 6.2 L, Albumin 3.1 L, Globulin 3.1, Albumin/Globulin Ratio 1.0, Lipase 59 L 04/27/22 10:42: Blood Type A POSITIVE, Antibody Screen NEGATIVE, Crossmatch See Detail 04/27/22 10:42: PT 16.3 H, INR 1.3, APTT 27.1 04/27/22 12:55: Hgb 9.5 L, Hct 29.7 L 04/27/22 17:45: Hgb 8.8 L, Hct 27.2 L Assessment & Plan Assessment/Plan (1) Acute upper gastrointestinal bleeding: PLAN: Plan #1. Acute upper GI bleed-etiology unclear, patient was admitted to PCU, discharge, she was placed on a Protonix drip she will be seen by gastroenterology and H&H will be monitored. Patient had 2 units of packed red blood cells typed and crossed in the emergency room. Patient will undergo endo scopy today. #2 acute blood loss anemia-patient's H&H will be monitored, she does not presently need any blood transfusion #3 essential hypertension-patient's blood pressure medications will be held at this time, blood pressure will be monitored #4 atherosclerotic heart disease by history-patient's oral medications will be held at this time due to her upper GI bleed #5 thrombocytosis-patient is on hydroxyurea, she will remain on this medication when she is not n.p.o. #6 hypothyroidism-patient will remain on her thyroid medications when she is not n.p.o. Total clinical time spent by myself addressing the patient's medical problems, reviewing all the data, and collaborating with patient's care team 75 minutes Charges/Coding Visit Charges Inpatient E&M: 14974 Init Hosp L3
--- NOTE | 2022-04-27 20:50 | CON.PCM.CA_ITS ---
Assessment & Plan Assessment/Plan (1) Chest pain, unspecified: PLAN: The patient developed chest discomfort. The etiology is unclear. She did describe symptoms that would be concerning for angina pectoris. However, this is also in the setting of her recent upper gastrointestinal bleeding process which could produce chest discomfort. At the present time she is being monitored. Her initial troponin I level is mildly elevated. Her ECG is as noted above. She will continue to be followed with respect any recurrent symptoms. She will continue her monitoring with follow-up cardiac enzymes and a follow-up ECG. Based upon her upper gastrointestinal bleeding process she is not a candidate for aspirin or other antiplatelet or anticoagulant agents at this time. She can receive additional medical therapy such as nitrates if needed and tolerated, beta-blockers, in addition to her lipid-lowering therapy. Depending upon her clinical course consideration might be given as to whether or not she needs additional cardiovascular diagnostic studies, etc., however, at the present time barring an unforeseen urgent emergent event, she does not appear to be an ideal candidate for evaluation in the cardiac catheterization laboratory based upon her ongoing upper gastrointestinal bleeding process and the limits of medications that could be used such as aspirin, antiplatelets, or anticoagulants. (2) Abnormal cardiac enzyme level: PLAN: Her initial high-sensitivity troponin I level is mildly elevated. She will have continued enzyme levels and ECG follow-up. It may not be unreasonable to consider a follow-up echocardiogram to reassess her left ventricular wall motion and systolic function for any obvious new regional wall motion abnormalities, etc. (3) CAD (coronary artery disease): PLAN: She does have a history of CAD as previously described. In the past this was reported as nonobstructive and she did not require revascularization therapy. She has continued medical management in the past for cardiovascular risks, etc., as best she can tolerate. (4) Mitral valve annular calcification: PLAN: She does have significant mitral annular calcification. This is noted on her echocardiogram and her cardiac catheterization fluoroscopic images. (5) Aortic valve disorder: PLAN: She does have an element of aortic valve disorder which is thought to be compatible with aortic valve stenosis. This can be reassessed with a transthoracic echocardiogram. (6) Near syncope: PLAN: She has had episodes of near syncope. Appears these have occurred with bowel movements and during her episode of hematemesis. These appear to be situational related and compatible with vasovagal mediated type events. (7) Hyperlipidemia: PLAN: She does have a history of hyperlipidemia. She states she has been able to tolerate only low-dose intermittent statin therapy. (8) Essential hypertension: PLAN: She does have a history of hypertension. She will need to continue to have her blood pressure monitored and continued adjustment of medicines as deemed appropriate. (9) Diabetes: QUALIFIERS: Diabetes mellitus type: type 2 Diabetes mellitus fpc insulin use: without fpc use Diabetes mellitus complication status: without complication Qualified Code(s): E11.9 - Type 2 diabetes mellitus without complications PLAN: She does have a history of diabetes mellitus which increases her cardiovascular risks. She will need to continue to follow with her primary care physician for this. (10) Essential thrombocytosis: PLAN: She also has a history of thrombocytosis. She has been following with hematology oncology for this. (11) Acute upper gastrointestinal bleeding: PLAN: She does have what is thought to be an acute upper gastrointestinal blee ding process. She has been evaluated by EGD. Her abdominal/pelvic CT findings are pending. She is continuing medical management as per Dr. Lieberman of gastroenterology. Based upon her process she was told she was not a candidate for aspirin therapy thus not a candidate for anticoagulant therapy as well as not a candidate for nonsteroidal anti-inflammatory therapy at this time. (12) Anemia: PLAN: She does have anemia. Her hemoglobin levels have declined. If her hemoglobin levels continue to decline that she may need to be considered for PRBC transfusion which could be beneficial to increase her oxygen carrying capacity especially in light of any ongoing cardiovascular concerns. Addt'l Comments The patient's case was discussed and reviewed with the patient, the [facility] [place] [facility] staff, and Dr. Doll of the [facility] staff. This note was generated using a voice recognition system and there may be incorrect words, spelling or punctuation that were not noted when reviewing the office note prior to saving. Comment: Time spent in the patient's overall evaluation, examination, review of medical records and previous noninvasive/invasive imaging studies, and discussio n with the medical staff: 60 minutes. HPI Consult Data Date of Consult: 04/27/22 HPI Narrative HPI Narrative: JUSTIN GORE, is a 71 year old white female who presents for cardiovascular consultation based upon concerns of chest discomfort superimposed upon a history of underlying coronary artery calcification, CAD-previously reported by diagnostic cardiac catheterization is nonobstructive, non-ST segment elevation VT-remote, aortic valve disease, hyperlipidemia, hypertension, diabetes mellitus, thyroid disease, thrombocytosis, who is now undergoing evaluation and care for an upper gastrointestinal bleeding process. The patient states that r ecently she has noted not feeling well, having hematemesis, having episodes were she felt as if she may lose consciousness during a bowel movement, who subsequently presented to the hospital for further evaluation. She was noted to be anemic with subsequent decline in her hemoglobin levels. She has undergone gastrointestinal evaluation and was diagnosed with an upper gastrointestinal bleeding process. Following her EGD she was referred to radiology for an abdominal/pelvic CT scan. She states during and following the injection of the IV contrast she felt warm and developed chest discomfort and bilateral upper extremity discomfort. She was subsequently returned to the PCU. She states her symptoms abated and at the moment she is without ongoing symptoms and states she is resting comfortably. She notes when her symptoms occur she did feel transiently nauseated but had no emesis. She does not recall any obvious acute respiratory related issues nor does she recall any diaphoretic issues. With her discomfort she had an ECG performed. She was noted to be in sinus rhythm. There was subtle nonspecific ST segment changes potentially compatible with an element of myocardial ischemia in the inferior limb leads. In comparison to previous ECGs available for review there appeared to be no significant changes. She has undergone previous cardiovascular evaluation. In September 2020 based upon concerns of weakness and malaise and an elevated blood pressure. At that time she had an elevation of her troponin I level. She subsequently underwent diagnostic cardiac catheterization by Dr. Alvarenga of interventional cardiology. According to the report she had nonobstructive CAD and did not require any form of revascularization therapy. Since that time she has undergone a subsequent pharmacologic stress nuclear imaging study which did raise a concern about an element of myocardial ischemia. She was subsequently evaluated and given the option of medical management versus repeat cardiac catheterization. She chose to continue medical therapy. She was treated with low dose nitrates. She has not had to return to the cardiac catheterization laboratory. She has also undergone evaluation in the past with a transthoracic echocardiogram. At that time her left ventricle was thought to be normal with an normal LVEF. She did have an element of aortic valve stenosis. She has continued medical therapy to hopefully help her cardiovascular risks as best as possible. She states that she is very intolerant to medications. She has denied any ongoing orthopnea or PND or peripheral pitting edema. She states she has not had any previous syncopal events. She notes only during her recent symptoms where she felt somewhat near syncope with respect to having a bowel movement as well as when she had an episode of hematemesis. At the time of the cardiovascular consultation she was resting supine in bed comfortably watching television. She had no acute complaints. [facility] Medical History Anxiety Arthralgia, cervical spine Atherosclerotic heart disease of [place] coronary artery without angina pectoris Diabetes type 2, controlled Elbow fracture Essential hypertension Facial bone fracture Heart murmur Hyperlipidemia Hypothyroidism Knee fracture LVH (left ventricular hypertrophy) Mitral valve annular calcification Myalgia Neuropathy Obesity Psoriasis Splenomegaly Thrombocytosis UTI (urinary tract infection) Vagal reaction Home Medications enalapril maleate 10 mg tablet 10 mg PO BID 01/05/18 [History Last Taken 3] diazepam 2 mg tablet (Valium) 2 mg PO TID PRN dizziness #20 tabs 09/13/20 [Rx Last Taken Unknown] aspirin 325 mg tablet 325 mg PO DAILY BLOOD THINNER 10/10/20 [History Last Taken 04/15/22] mwehtnpbmohzkxtxlzuguh-[id number]-abuwufnu 80 0.5 %-1 %-0.5 % eye drops (Refresh Digital) 1 drp ophthalmic (eye) 8-12XD PRN Dry Eye(S) 08/26/21 [History Last Taken 04/26/22] clobetasol 0.05 % shampoo 1 applic topical DAILY PRN PSORASIS 08/26/21 [History Last Taken Unknown] ergocalciferol (vitamin D2) 50 mcg (2,000 unit) capsule 50 mcg PO MOWEFR SUPPLEMENT 08/26/21 [History Last Taken 04/26/22] levothyroxine 50 mcg tablet 75 mcg PO DAILY #135 tabs 08/28/21 [Rx Last Taken 04/27/22] carvedilol 6.25 mg tablet 6.25 mg PO BID #180 tabs 11/05/21 [Rx Last Taken 04/27/22] calcitriol 3 mcg/gram topical ointment 1 applic topical BID PRN PSORAISIS 11/27/21 [History Last Taken Unknown] clobetasol 0.05 % lotion (Clobex) 1 applic topical DAILY PRN PSORAISIS 11/27/21 [History Last Taken Unknown] halobetasol propionate 0.05 % topical cream 1 applic topical DAILY PRN PSORASIS 11/27/21 [History Last Taken Unknown] hydroxyurea 500 mg capsule 500 mg PO DAILY #90 caps 02/17/22 [Rx Last Taken 04/27/22] coQ10 (ubiquinol) 100 mg capsule 100 mg PO TUTHSA MUSCLE CRAMPS 04/27/22 [History Last Taken 04/24/22] pravastatin 10 mg tablet 10 mg PO TUTHSA CHOLESTEROL 04/27/22 [History Last Taken 04/24/22] Allergy/AdvReac Type Severity Reaction Status Date / Time codeine Allergy Severe Unknown Verified 04/27/22 10:06 metformin AdvReac Severe diarrhea Verified 04/27/22 10:06 ciprofloxacin [From Cipro] AdvReac Nausea Verified 04/27/22 10:06 Family History Grandmother Diabetes Father Heart disease High cholesterol Mother Heart disease Surgical History Hx of cholecystectomy Previous back surgery S/P tonsillectomy and adenoidectomy Social History household members: spouse Smoking Status: Never smoker second hand exposure: No alcohol intake: current alcohol intake frequency: a few times a month details: Rare. substance use type: does not use ROS Constitutional Constitutional: Reports as per HPI Eyes Eyes: Reports as per HPI ENT HEENT: Reports as per HPI Cardiovascular Cardiovascular: Reports chest pain at rest Respiratory/Chest Respiratory/Chest: Reports as per HPI Gastrointestinal Gastrointestinal: Reports hematemesis and nausea Genitourinary Genitourinary: Reports as per HPI Musculoskeletal Musculoskeletal: Reports as per HPI Integumentary Integumentary: Reports as per HPI Neurologic Neurologic: Reports as per HPI Physical Exam Narrative This is a 71-year-old white female who appears to be resting comfortably at the moment in no acute distress Const alert, oriented x3 and no apparent distress Orientation / Consciousness: awake HEENT normocephalic, head/scalp atraumatic and hearing grossly normal bilaterally Eyes PERRL, EOMs intact bilaterally, conjunctivae normal and no scleral icterus Neck full ROM, supple and no JVD Carotids: normal carotid upstroke Chest inspection of chest normal Resp normal respiratory effort and clear to auscultation bilaterally Cardio regular rate, regular rhythm, S1 normal heart sound and S2 normal heart sound Heart Sounds: murmur systolic III/ harsh mid left sternal border, LVOT and sternal notch GI normal to inspection, nondistended, normoactive bowel sounds Extremity no pedal edema Skin no rashes or lesions noted Psych mental status grossly normal Risk Stratification Risk Stratification Applicable: Yes Age >/= 65: Yes >/= 3 CAD Risk Factors (HTN, HLD, DM, family hx of CAD, or current smoker): Yes Aspirin Use in the Past 7 Days: Yes Severe Angina (>/= episodes in 24 hours): Yes EKG ST Changes >/= 0.5mm: No Positive Cardiac Marker: Yes JULIANNE Risk Stratification Score: 5 JULIANNE % Risk: 25% Risk Procedure Criteria Type of Procedure Procedure Type: Elective Elective Risks - COVID COVID Risk Discussion: The surgeon/proceduralist and patient have discussed in detail the risk of exposure to and/or potential harm posed by the COVID-19 virus with having a lili frandy/procedure at this time versus the risk of delaying the surgery/procedure. It is not possible to know either the risk of delaying the surgery or procedure or chance of getting an infection with perfect accuracy, but a joint decision was made between the patient and the surgeon/proceduralist to proceed at this time with the scheduled surgery/procedure as indicated on the consent form. Objective Data Vital Signs: Vital Signs Temp Pulse Resp BP Pulse Ox O2 Del Method 98.3 F 80 16 123/71 H 99 Room Air 04/27/22 17:50 04/27/22 17:50 04/27/22 17:50 04/27/22 17:50 04/27/22 17:50 04/27/22 17:50 Oxygen Delivery Method Room Air Weight: 205 lb 4.006 oz Body Mass Index (BMI) 32.1 Intake & Output: Intake and Output for Last 24 Hours 04/25/22 04/26/22 04/27/22 23:59 23:59 23:59 Intake Total 1035 / 1035 Output Total 150 / 150 Balance 885 / 885 Lab / Micro Data Result Diagrams: 04/27/22 17:45 04/27/22 10:42 Labs: Laboratory Results - last 24 hr 04/27/22 10:42: WBC 15.2 H, RBC 3.03 L, Hgb 10.5 L, Hct 32.6 L, MCV 107.6 H, MCH 34.7 H, MCHC 32.2, RDW Std Deviation 54.2 H, RDW Coeff of Lucas 13.8, Plt Count 693 H, MPV 11.6, Immature Gran % (Auto) 0.800, Neut % (Auto) 87.6 H, Lymph % (Auto) 7.5 L, [place] % (Auto) 3.6, Eos % (Auto) 0.1, Baso % (Auto) 0.4, Absolute Neuts (auto) 13.3 H, Absolute Lymphs (auto) 1.14, Nucleated RBC % 0 04/27/22 10:42: Sodium 133 L, Potassium 5.2 H, Chloride 102, Carbon Dioxide 22.0, Anion Gap 9, BUN 24 H, Creatinine 0.96, Estim Creat Clear Calc 53.03, Est GFR (MDRD) Af Amer 74, Est GFR (MDRD) Non-Af 61, BUN/Creatinine Ratio 25.0 H, Glucose 222 H, Calcium 8.4 L, Total Bilirubin 0.50, AST 13 L, ALT 16, Alkaline Phosphatase 51, Total Protein 6.2 L, Albumin 3.1 L, Globulin 3.1, Albumin/Globulin Ratio 1.0, Lipase 59 L 04/27/22 10:42: Blood Type A POSITIVE, Antibody Screen NEGATIVE, Crossmatch See Detail 04/27/22 10:42: PT 16.3 H, INR 1.3, APTT 27.1 04/27/22 12:55: Hgb 9.5 L, Hct 29.7 L 04/27/22 17:45: Hgb 8.8 L, Hct 27.2 L Cardiology Labs/Tests 04/27/22 10:42: WBC 15.2 H, RBC 3.03 L, Hgb 10.5 L, Hct 32.6 L, MCV 107.6 H, MCH 34.7 H, MCHC 32.2, Plt Count 693 H, MPV 11.6, Immature Gran % (Auto) 0.800, Neut % (Auto) 87.6 H, Lymph % (Auto) 7.5 L, [place] % (Auto) 3.6, Eos % (Auto) 0.1, Baso % (Auto) 0.4, Absolute Neuts (auto) 13.3 H, Nucleated RBC % 0 04/27/22 10:42: Sodium 133 L, Potassium 5.2 H, Chloride 102, Carbon Dioxide 22.0, Anion Gap 9, BUN 24 H, Creatinine 0.96, Est GFR (MDRD) Af Amer 74, Est GFR (MDRD) Non-Af 61, BUN/Creatinine Ratio 25.0 H, Glucose 222 H, Calcium 8.4 L, Total Bilirubin 0.50 04/27/22 10:42: PT 16.3 H, INR 1.3, APTT 27.1 04/27/22 12:55: Hgb 9.5 L, Hct 29.7 L 04/27/22 17:45: Hgb 8.8 L, Hct 27.2 L Rhythm: Sinus rhythm EKG: As noted above Echocardiogram 09/12/2020: The estimated ejection fraction is EF 55-60 %. Moderate to severe concentric LVH Heavily calcified papillary muscle Moderate MR Grade #2 Diastolic Dysfunction MIld ,HARPER 1.9 cm2, Trivial tricuspid valve insufficiency. Echocardiogram: 04-23-2021 Interpretation Summary Limited views were obtained. ? Left ventricular systolic function is normal. The estimated ejection fraction is 55 %. The global longitudinal strain = -20 % (normal). Moderate concentric left ventricular hypertrophy. The left atrium is mildly enlarged. There is severe mitral annular calcification. Extension of the mitral annular calcification onto the mitral valve leaflets. Moderate focal aortic valve thickening. Moderate focal aortic valve calcification. Comment: Global longitudinal strain pattern does not appear to represent the classic bull's-eye pattern suggestive of amyloidosis. Stress Test Report Date: 09-04-2021 Procedure: Pharmacologic stress nuclear imaging study? Indications: Chest pain; coronary artery calcification; CAD Consent: Per the patient Procedure: The patient underwent pharmacologic (Regadenoson 0.4mg ) evaluation with a peak heart rate of 112 beats per minute (74%predicted maximal heart rate) and a peak blood pressure of 162/94 mmHg. The baseline ECG demonstrated normal sinus rhythm.? The peak pharmacologic ECG demonstrated no obvious ECG changes. There were no cardiac dysrhythmias pretest, during pharmacologic infusion, or recovery. There was notation of back discomfort/chest discomfort during early recovery- Per the patient resembling the symptoms she has at home. The examination was discontinued secondary to completion of protocol. Impression: 1.? Pharmacologic (Regadenoson) evaluation 2.? Peak pharmacologic ECG with no obvious ECG changes. 3.? There were no cardiac dysrhythmias pretest, during pharmacologic infusion, or recovery. 4.? Nuclear images pending Myocardial perfusion imaging study: Technique: The patient was injected with 14.4 millicuries of technetium 99m Cardiolite and subsequently rest SPECT Cardiolite nuclear imaging was obtained in the horizontal long, vertical long, and short axis views. The patient underwent phar macologic (Regadenoson) evaluation with a peak heart rate of 112 beats per minute (74% percent predicted maximal heart rate) and a peak blood pressure of 164/92 mmHg. The patient was injected with 43.9 millicuries of technetium 99m Cardiolite and subsequently stress SPECT Cardiolite nuclear imaging was obtained in the horizontal long, vertical long, and short axis views.? A gated Cardiolite study at peak stress was obtained. Interpretation: Rest and stress SPECT Cardiolite nuclear imaging status post realignment, normalization, and attenuation correction demonstrate the appearance of diminis hed myocardial perfusion/tracer uptake in portions of the mid toward distal anterior/anteroseptal and septal apical segments.? There are similar type findings on the stress polar map images.? There is diminished end-systolic thickening in the aforementioned areas.? The gated Cardiolite study demonstrates myocardial thickening and inward wall motion.? The reported LVEF is 50%. Impression: 1.? Rest and stress SPECT current nuclear imaging demonstrate myocardial perfusion changes appearing compatible with an element of stress-induced myocardial ischemia in portions of the mid to distal anterior/anteroseptal and septal apical segments. 2.? The gated Cardiolite study reports an LVEF of 50%. Cardiac catheterization: 09-12-2020 Procedure Report Date of Procedure: 09/12/20 Procedure performed; 1.? Left heart catheterization 2.? Selective cholangiography 3.? Placement of TR band to close the right radial artery arteriotomy site. Consent; Risk and benefit of the procedure explained detail to the patient she elected to proceed informed consent obtained. Diagnostic catheter used 1.? 6 [place] from sheath/right radial artery approach 2.? 5 [place] JL 3.5 3.? 5 [place] JR4 Preprocedure diagnosis; 69-year-old patient who presented with abdominal pain lightheadedness and dizziness had a frequent urinary tract infection, hypothyroidism, diabetes mellitus and dysuria Evaluated with high sensitive troponin which showed moderate elevation Based on her presentation lightheadedness dizziness and nondiabetic clinical diagnosis of silent VT which is a high risk Procedure in detail; Patient brought to the Railroad Repairer in fasting state, right radial artery area prepped and draped in the usual sterile fashion 6 [place] sheath placed in the right radial artery Cocktail of verapamil, heparin as well as nitroglycerin was given through the sheath We will proceed with the diagnostic catheter 5 [place] JL 3.5 advanced ascending aorta cannulated the left main without difficulty, multiple views of the left main carotid obtained including EFREN, RADER cranial and caudal views following this catheter exchanged for 5 [place] JR4 selective angiogram of the record system obtained in the same catheter was used to cross the aortic valve on left ventriculogram was not performed in this case as she has an echocardiogram showed LV function preserved.? Heavily calcified mitral annulus Measurement of LV EDP and a pullback pressure were recorded Findings Hemodynamics LVEDP within normal No systolic gradient across aortic valve Coronary angiography; 1.? Left main is calcified bifurcating into LAD and left circumflex artery Angiographically there is no obstructive atherosclerosis in the left main coronary artery. Also noted heavily calcified mitral annulus LAD ostial/proximal LAD has nonobstructive atherosclerosis, due to large left circumflex artery and overlapping with very difficult evaluation However appear nonobstructive with proximal LAD around 40 to 50% In the mid LAD which is moderate dual LAD system, 40-50% stenosis involving the mid LAD and the bifurcation the moderate-sized diagonal branch. The left circumflex artery is a large dominant, with a left posterior descending artery arising from the left circumflex Ostial OM1 had nonobstructive sclerosis of around 30-40% Right coronary artery small nondominant. Conclusion recommendations; This patient has CAD with a calcified left main extension of calcification into the LAD and circumflex with nonobstructive proximal and mid LAD and a significantly large dominant left circumflex with nonobstructive OM1 Patient tolerated the procedure well with no complication TR band applied to right radial artery area to maintain hemostasis of the right radial artery arteriotomy site Recommendations; Medical treatment risk factor control Follow-up regularly with a swine genetics researcher to evaluate with nuclear stress test, to assess the severity of the LAD stenosis. Guideline directed medical therapy with aspirin, beta-ricky, statin, nitroglycerin as needed to treat medically. Betty Alvarenga MD,FACC,[facility] [place]
[2022-04-27] MEDS: 0.9% Saline Lock 10 ML Syringe IV ×2 (20:54→21:00)
[2022-04-27 20:56] LABS: Troponin-I HS 62 pg/mL (3.0-54.0)
[2022-04-27 22:32] LABS: Hematocrit 27.6 % (37-47); Hemoglobin 9.1 g/dL (12.0-15.0)
[2022-04-27 23:04] LABS: Troponin-I HS 201 pg/mL (3.0-54.0)
[2022-04-28 02:48] LABS: Troponin-I HS 348 pg/mL (3.0-54.0)
[2022-04-28 03:24] VITALS: BP 123/55; PULSE 81; RESP 18; TEMP 36.8; O2SAT 97
[2022-04-28] MEDS: 0.9% Normal Saline 1,000 ML 100 ML IV ×3 (03:30→22:40)
--- NOTE | 2022-04-28 05:55 | ECHOD_ITS ---
Reason For Study: CAD/ASHD Procedure This was a 2D Doppler, Color Flow transthoracic echocardiogram. The exam was of adequate technical quality. Exam performed portable in patient room. Left Ventricle Normal LV size. Left ventricular systolic function is normal. The estimated ejection fraction is 60 %. Stage 2 diastolic dysfunction. No regional wall motion abnormalities noted. Right Ventricle Normal RV size. Normal systolic function. Atria Normal left atrium. Normal right atrium. No doppler evidence for ASD. Mitral Valve There is severe mitral annular calcification. Extension of the mitral annular calcification onto the base of the posterior mitral valve leaflet. Trivial mitral valve insufficiency. Tricuspid Valve Normal tricuspid valve. Trivial tricuspid valve insufficiency. Right ventricular systolic pressure estimated to be 36 mmHg. Aortic Valve Trisinus/trileaflet aortic valve. Moderate focal aortic valve calcification. Mild aortic stenosis. Pulmonic Valve The pulmonic valve is not well visualized. Great Vessels Normal sized aortic root. Pericardium/Pleural No pericardial effusion. MMode/2D Measurements & Calculations LVIDd: 4.9 cm IVSd: 1.0 cm LVOT diam: 2.0 cm LVIDs: 3.3 cm LVPWd: 1.1 cm LVOT area: 3.1 cm2 RVDd: 3.2 cm FS: 31.7 % Ao root diam: 3.1 cm LAV(MOD-bp): 37.5 ml LVAd ap4: 25.8 cm2 LAV(MOD-bp) Indexed: 18.4 ml/m2 LVLd ap4: 7.2 cm LAV(MOD-sp2): 34.9 ml EDV(MOD-sp4): 74.9 ml LAV(MOD-sp4): 34.4 ml EDV(sp4-el): 77.8 ml LVAs ap4: 14.5 cm2 LVLs ap4: 5.8 cm ESV(MOD-sp4): 30.7 ml ESV(sp4-el): 30.7 ml EF(MOD-sp4): 59.0 % EF(sp4-el): 60.5 % SV(MOD-sp4): 44.2 ml SV(sp4-el): 47.1 ml LA A4 area: 14.1 cm2 LA dimension(2D): 3.5 cm RA A4 area: 13.3 cm2 Time Measurements MV dec time: 0.29 sec Doppler Measurements & Calculations MV E max jasbir: 134.3 cm/sec Lat Peak E' Jasbir: 6.1 cm/sec Med Peak E' Jasbir: 6.0 cm/sec MV A max jasbir: 159.9 cm/sec E/E' lat: 22.2 E/E' med: 22.5 MV E/A: 0.84 MV V2 max: 178.5 cm/sec MV P1/2t max jasbir: 147.7 cm/sec Ao V2 max: 213.5 cm/sec MV max P.8 mmHg MV P1/2t: 84.5 msec Ao max P.3 mmHg MV V2 mean: 106.3 cm/sec Ao V2 mean: 160.4 cm/sec MV mean P.2 mmHg MV dec slope: 512.0 cm/sec2 Ao mean P.6 mmHg MV V2 VTI: 49.2 cm MVA(P1/2t): 2.6 cm2 Ao V2 VTI: 48.3 cm AV (velocity ratio): 0.70 MVA(VTI): 2.1 cm2 HARPER(I,D): 2.2 cm2 HARPER(V,D): 1.9 cm2 LV V1 max: 129.0 cm/sec SV(LVOT): 103.9 ml PA V2 max: 138.5 cm/sec LV V1 max P.7 mmHg LV V1 mean P.7 mmHg LV V1 mean: 102.8 cm/sec LV V1 VTI: 33.7 cm TR max jasbir: 286.9 cm/sec TR max P.9 mmHg ECHO/Echo Complete Interpretation Summary Left ventricular systolic function is normal. The estimated ejection fraction is 60 %. There is severe mitral annular calcification. Extension of the mitral annular calcification onto the base of the posterior mi tral valve leaflet. Trivial mitral valve insufficiency. Trivial tricuspid valve insufficiency. Mild aortic stenosis. Right ventricular systolic pressure estimated to be 36 mmHg. Stage 2 diastolic dysfunction. Ordering Physician: Jose Chavez Referring Physician: DELONTE WYMAN Performed By: Meryl Olivas RDCS
[2022-04-28 06:26] LABS: Troponin-I HS 447 pg/mL (3.0-54.0)
[2022-04-28 06:27] VITALS: BP 163/84; PULSE 91
[2022-04-28 06:42] LABS: Hematocrit 26.1 % (37-47); Hemoglobin 8.4 g/dL (12.0-15.0)
[2022-04-28 07:06] LABS: Anion Gap 8 (5-15); BUN 22 mg/dL (7-18); BUN/Creat Ratio 26.8 RATIO (10-20); Calcium,Total 8.3 mg/dL (8.5-10.1); Chloride 109 mmol/L (98-107); Creatinine, Serum 0.82 mg/dL (0.55-1.02); EST Glomerular Filtration Rate 73 mL/min (>60); Est Glom Filt Rate - Afr Amer 88 mL/min (>60); Estimated Creatinine Clearance 62.08 ml/min; Glucose 149 mg/dL (74-106); Potassium 4.5 mmol/L (3.5-5.1); Sodium Level 139 mmol/L (136-145)
[2022-04-28] MEDS: Carvedilol 6.25 MG Tablet PO ×2 (07:56→16:56)
--- NOTE | 2022-04-28 08:47 | PCM.PN.CARD ---
Subjective Subjective The patient is awake and alert. She denies ongoing chest discomfort or difficulty breathing. She states that she has had a bowel movement believed to be related to her GI bleeding process. Objective Data Vital Signs: Vital Signs Temp Pulse Resp BP Pulse Ox O2 Del Method 98.2 F 91 18 163/84 H 97 Room Air 04/28/22 03:24 04/28/22 06:27 04/28/22 03:24 04/28/22 06:27 04/28/22 03:24 04/28/22 03:27 Oxygen Delivery Method Room Air Weight: 205 lb 4.006 oz Body Mass Index (BMI) 32.1 Intake & Output: Intake and Output for Last 24 Hours 04/26/22 04/27/22 04/28/22 23:59 23:59 23:59 Intake Total 2223 / 2223 Output Total 550 / 550 Balance 1673 / 1673 Lab / Micro Data Result Diagrams: 04/28/22 05:18 04/28/22 05:18 Labs: Laboratory Results - last 24 hr 04/27/22 10:42: WBC 15.2 H, RBC 3.03 L, Hgb 10.5 L, Hct 32.6 L, MCV 107.6 H, MCH 34.7 H, MCHC 32.2, RDW Std Deviation 54.2 H, RDW Coeff of Lucas 13.8, Plt Count 693 H, MPV 11.6, Immature Gran % (Auto) 0.800, Neut % (Auto) 87.6 H, Lymph % (Auto) 7.5 L, [place] % (Auto) 3.6, Eos % (Auto) 0.1, Baso % (Auto) 0.4, Absolute Neuts (auto) 13.3 H, Absolute Lymphs (auto) 1.14, Nucleated RBC % 0 04/27/22 10:42: Sodium 133 L, Potassium 5.2 H, Chloride 102, Carbon Dioxide 22.0, Anion Gap 9, BUN 24 H, Creatinine 0.96, Estim Creat Clear Calc 53.03, Est GFR (MDRD) Af Amer 74, Est GFR (MDRD) Non-Af 61, BUN/Creatinine Ratio 25.0 H, Glucose 222 H, Calcium 8.4 L, Total Bilirubin 0.50, AST 13 L, ALT 16, Alkaline Phosphatase 51, Total Protein 6.2 L, Albumin 3.1 L, Globulin 3.1, Albumin/Globulin Ratio 1.0, Lipase 59 L 04/27/22 10:42: Blood Type A POSITIVE, Antibody Screen NEGATIVE, Crossmatch See Detail 04/27/22 10:42: PT 16.3 H, INR 1.3, APTT 27.1 04/27/22 12:55: Hgb 9.5 L, Hct 29.7 L 04/27/22 17:45: Hgb 8.8 L, Hct 27.2 L 04/27/22 20:22: Troponin I High Sens 62 H 04/27/22 22:18: Hgb 9.1 L, Hct 27.6 L 04/27/22 22:18: Troponin I High Sens 201 H* 04/28/22 02:13: Troponin I High Sens 348 H* 04/28/22 05:18: Troponin I High Sens 447 H* 04/28/22 05:18: Hgb 8.4 L, Hct 26.1 L 04/28/22 05:18: Sodium 139, Potassium 4.5, Chloride 109 H, Carbon Dioxide 22.0, Anion Gap 8, BUN 22 H, Creatinine 0.82, Estim Creat Clear Calc 62.08, Est GFR (MDRD) Af Amer 88, Est GFR (MDRD) Non-Af 73, BUN/Creatinine Ratio 26.8 H, Glucose 149 H, Calcium 8.3 L Cardiology Labs/Tests 04/27/22 10:42: WBC 15.2 H, RBC 3.03 L, Hgb 10.5 L, Hct 32.6 L, MCV 107.6 H, MCH 34.7 H, MCHC 32.2, Plt Count 693 H, MPV 11.6, Immature Gran % (Auto) 0.800, Neut % (Auto) 87.6 H, Lymph % (Auto) 7.5 L, [place] % (Auto) 3.6, Eos % (Auto) 0.1, Baso % (Auto) 0.4, Absolute Neuts (auto) 13.3 H, Nucleated RBC % 0 04/27/22 10:42: Sodium 133 L, Potassium 5.2 H, Chloride 102, Carbon Dioxide 22.0, Anion Gap 9, BUN 24 H, Creatinine 0.96, Est GFR (MDRD) Af Amer 74, Est GFR (MDRD) Non-Af 61, BUN/Creatinine Ratio 25.0 H, Glucose 222 H, Calcium 8.4 L, Total Bilirubin 0.50 04/27/22 10:42: PT 16.3 H, INR 1.3, APTT 27.1 04/27/22 12:55: Hgb 9.5 L, Hct 29.7 L 04/27/22 17:45: Hgb 8.8 L, Hct 27.2 L 04/27/22 22:18: Hgb 9.1 L, Hct 27.6 L 04/28/22 05:18: Hgb 8.4 L, Hct 26.1 L 04/28/22 05:18: Sodium 139, Potassium 4.5, Chloride 109 H, Carbon Dioxide 22.0, Anion Gap 8, BUN 22 H, Creatinine 0.82, Est GFR (MDRD) Af Amer 88, Est GFR (MDRD) Non-Af 73, BUN/Creatinine Ratio 26.8 H, Glucose 149 H, Calcium 8.3 L Rhythm: Sinus rhythm EKG: Sinus rhythm; compared to the previous ECG the aforementioned ST segment changes appear to be returning to baseline ECHO: Pending Radiography Diagnostic Testing: Radiology Impression Abdomen/Pelvis CT 04/27/22 17:44 IMPRESSION: Mild nonspecific fatty infiltration of the liver.. Findings which may be consistent with nonspecific gastritis. No evidence for small bowel obstruction. Incidental finding of large left lower quadrant hernia without evidence for proximal obstruction or incarceration No evidence for focal intraluminal contrast extravasation to suggest acute GI hemorrhage at this time Electronically Signed: Cal Kaur MD at 21:44 EST , Physical Exam Narrative This is a 71-year-old white female who appears to be resting comfortably at the moment in no acute distress Const alert, oriented x3 and no apparent distress Orientation / Consciousness: awake HEENT normocephalic, head/scalp atraumatic and hearing grossly normal bilaterally Eyes PERRL, EOMs intact bilaterally, conjunctivae normal and no scleral icterus Neck full ROM, supple and no JVD Carotids: normal carotid upstroke Chest inspection of chest normal Resp normal respiratory effort and clear to auscultation bilaterally Cardio regular rate, regular rhythm, S1 normal heart sound and S2 normal heart sound Heart Sounds: murmur systolic III/ harsh mid left sternal border, LVOT and sternal notch GI normal to inspection, nondistended, normoactive bowel sounds Extremity no pedal edema Skin no rashes or lesions noted Psych mental status grossly normal Assessment & Plan Assessment/Plan (1) Chest pain, unspecified: PLAN: The patient developed chest discomfort. She did describe symptoms that would be concerning for angina pectoris. This did occur in the setting of her acute upper GI bleeding process and anemia. At the present time she is being monitored. Her troponin I levels have increased. Her ECG has demonstrated no new acute changes and her previous ST segment changes appear to be resolving towards baseline. She will continue to be followed with respect any recurrent symptoms. Based upon her upper gastrointestinal bleeding process she is not a candidate for aspirin or other antiplatelet or anticoagulant agents at this time. She has been placed back on her beta-ricky therapy, EYAL inhibitor therapy, and her statin. She is pending reevaluation with a transthoracic echocardiogram to reassess her left ventricular wall motion and systolic function. Depending upon her clinical course consideration might be given as to whether or not she needs additional cardiovascular diagnostic studies, etc., however, at the present time barring an unforeseen urgent emergent event, she does not appear to be an ideal candidate for evaluation in the cardiac catheterization laboratory based upon her ongoing upper gastrointestinal bleeding process and the limits of medications that could be used such as aspirin, antiplatelets, or anticoagulants. (2) Abnormal cardiac enzyme level: PLAN: Her initial high-sensitivity troponin I level is elevated. This appears compatible with a type II event brought out by her acute upper GI bleeding process and anemia. She will continue her noninvasive evaluation. She will continue her medical management taking into consideration her limits with respect to aspirin, antiplatelets, and anticoagulants. (3) CAD (coronary artery disease): PLAN: She does have a history of CAD as previously described. In the past this was reported as nonobstructive and she did not require revascularization therapy. She has continued medical management in the past for cardiovascular risks, etc., as best she can tolerate. Based upon her recent event, at some point in time, if she is ever able to be back on agent such as aspirin or antiplatelets or anticoagulants consideration could be given to reevaluation in the cardiac catheterization laboratory. (4) Mitral valve annular calcification: PLAN: She does have significant mitral annular calcification. This is noted on her echocardiogram and her cardiac catheterization fluoroscopic images. (5) Aortic valve disorder: PLAN: She does have an element of aortic valve disorder which is thought to be compatible with aortic valve stenosis. This can be reassessed with a transthoracic echocardiogram. (6) Near syncope: PLAN: She has had episodes of near syncope. Appears these have occurred with bowel movements and during her episode of hematemesis. These appear to be situational related and compatible with vasovagal mediated type events. (7) Hyperlipidemia: PLAN: She does have a history of hyperlipidemia. She states she has been able to tolerate only low-dose intermittent statin therapy. (8) Essential hypertension: PLAN: She does have a history of hypertension. She will need to continue to have her blood pressure monitored and continued adjustment of medicines as deemed appropriate. (9) Diabetes: QUALIFIERS: Diabetes mellitus type: type 2 Diabetes mellitus marine oil terminal superintendent insulin use: without marine oil terminal superintendent use Diabetes mellitus complication status: without complication Qualified Code(s): E11.9 - Type 2 diabetes mellitus without complications PLAN: She does have a history of diabetes mellitus which increases her cardiovascular risks. She will need to continue to follow with her primary care physician for this. (10) Essential thrombocytosis: PLAN: She also has a history of thrombocytosis. She has been following with hematology oncology for this. (11) Acute upper gastrointestinal bleeding: PLAN: She does have what is thought to be an acute upper gastrointestinal bleeding process. She has been evaluated by EGD. Her abdominal/pelvic CT findings are noted. She is continuing medical management as per Dr. Lieberman of gastroenterology. Based upon her process she was told she was not a candidate for aspirin therapy thus not a candidate for anticoagulant therapy as well as not a candidate for nonsteroidal anti-inflammatory therapy at this time. (12) Anemia: PLAN: She does have anemia. Her hemoglobin levels have declined to 8.4. If her hemoglobin levels continue to decline that she may need to be considered for PRBC transfusion which could be beneficial to increase her oxygen carrying capacity especially in light of any ongoing cardiovascular concerns. Addt'l Comments The above was discussed and reviewed with the patient. The patient's case has previously been discussed with Dr. Doll. Comment: Time spent in the patient's overall evaluation, examination, review of medical records, questions and answers, and discussion with the medical staff: 35 minutes Procedure Criteria Type of Procedure Procedure Type: Elective Elective Risks - COVID COVID Risk Discussion: The surgeon/proceduralist and patient have discussed in detail the risk of exposure to and/or potential harm posed by the COVID-19 virus with having a surgery/procedure at this time versus the risk of delaying the surgery/procedure. It is not possible to know either the risk of delaying the surgery or procedure or chance of getting an infection with perfect accuracy, but a joint decision was made between the patient and the surgeon/proceduralist to proceed at this time with the scheduled surgery/procedure as indicated on the consent form.
[2022-04-28 09:30] VITALS: BP 134/64; PULSE 76; RESP 18; TEMP 36.7; O2SAT 96
[2022-04-28] MEDS: Sucralfate 1 GM Tablet PO ×3 (10:22→22:18)
--- NOTE | 2022-04-28 12:10 | CASEMGMT ---
RN ANDREW Face to Face with patient for initial transition planning/care coordination assessment. RN CM introduced self and role at [facility]. Patient lying in bed, alert and oriented, at bedside. Patient willing to participate in assessment and is able to answer all questions appropriately. Care providers, pharmacy, and demographics verified. Patient wishes to discharge home, denies need for home health at this time. Patient states she has no further needs or concerns at this time. CM to follow for discharge planning needs that may arise. PCP: [place] Specialists: Natali, oncologist; Kathy, supervisor frame sample and pattern; , endocrinolgist; Friend, GI Preferred [facility]acy: [facility] Insurance: MCR, [employer] Prescription Benefit: yes Living Will/HPOA: none LNOK: , daughter Living Arrangements: Patient lives with in a single story home with 2 steps and railing to enter the home. Patient states she is independent at home. Transportation: self, DME/HHC: Patient has walker and glucometer with supplies. No previous HHC or SNF. Disposition Plan: Patient to discharge home with family support and follow-up plans in place. Sakshi SHAW, RN, CM
[2022-04-28 12:57] LABS: Hematocrit 25.4 % (37-47); Hemoglobin 8.1 g/dL (12.0-15.0)
--- NOTE | 2022-04-28 15:22 | CHAPLAIN ---
Type of Pastoral Visit _x__ Initial Visit ___ Follow-up Visit ___ On-call Visit ___ General Patient Visit ___ Spiritual Assessment ___ Family Conference ___ Bereavement ___ Rapid Response ___ Code Blue ___ Other (describe below) Pastoral Care Referral From _x__ Patient ___ Family ___ Nurse ___ Physician ___ Test Specialist ___ Curtain Supervisor ___ Other (describe below) Sacrament/Intervention _x__ Active listening ___ Anointing ___ Religious ___ Bereavement ___ Communion ___ [place] exploration ___ ___ Life review ___ Prayer ___ Reconciliation ___ Sacrament of Sick _x__ Supportive presence ___ Wedding ___ Other (describe below) Pastoral Comments patient gives report on her health condition; pt states that today is much better; pt is more hopeful today she says; pt has goal to be out in public again and enjoy life some rather than being cooped up on the inside these last years; pt declines further needs or spiritual care
[2022-04-28 15:30] VITALS: BP 123/54; PULSE 81; RESP 18; TEMP 37.3; O2SAT 95
[2022-04-28 16:45] VITALS: BP 150/80; TEMP 36.7
[2022-04-28] MEDS: diazePAM 2 MG Tablet PO (18:32)
--- NOTE | 2022-04-28 18:36 | PCM.PN.HOSP ---
Reason for Visit Reason for Visit: Diagnoses Essential (hemorrhagic) thrombocythemia (04/28/22) Anemia, unspecified (04/28/22) Type 2 diabetes mellitus without complications (04/28/22) Hyperlipidemia, unspecified (04/28/22) Rheumatic mitral valve disease, unspecified (04/28/22) Essential (primary) hypertension (04/28/22) Atherosclerotic heart disease of [place] coronary artery without angina pectoris (04/28/22) Nonrheumatic aortic valve disorder, unspecified (04/28/22) Gastrointestinal hemorrhage, unspecified (04/28/22) Chest pain, unspecified (04/28/22) Syncope and collapse (04/28/22) Abnormal levels of other serum enzymes (04/28/22) Subjective Subjective Patient was seen and examined today, I talked with gastroenterology about her care, her hemoglobin has dropped into the 8 range today but it does not appear to be continuing to drop. Patient has had several melanotic stools today, there is an H&H pending at 6 PM tonight. Patient had a bleeding area in her stomach, I received permission from GI to go ahead and feed her today, she will resume her oral medications also. Patient had an elevation in her troponin along with chest pain and was seen by cardiology last night, it appears she has a type II non-STEMI, noninvasive evaluation will be undertaken. Patient had a normal EF on her echocardiogram today along with some mild aortic stenosis. Objective Data Objective Data Vital Signs: Vital Signs Temp Pulse Resp BP Pulse Ox O2 Del Method 98.0 F 81 18 150/80 H 95 Room Air 04/28/22 16:45 04/28/22 15:30 04/28/22 15:30 04/28/22 16:45 04/28/22 15:30 04/28/22 15:30 Oxygen Delivery Method Room Air Weight: 93.1 kg Body Mass Index (BMI) 32.1 Intake & Output: Intake and Output for Last 24 Hours 04/26/22 04/27/22 04/28/22 23:59 23:59 23:59 Intake Total 2223 / 2223 1392.96 / 1392.96 Output Total 550 / 550 550 / 550 Balance 1673 / 1673 842.96 / 842.96 Lab / Micro Data Result Diagrams: 04/28/22 12:35 04/28/22 05:18 Labs: Laboratory Results - last 24 hr 04/27/22 20:22: Troponin I High Sens 62 H 04/27/22 22:18: Hgb 9.1 L, Hct 27.6 L 04/27/22 22:18: Troponin I High Sens 201 H* 04/28/22 02:13: Troponin I High Sens 348 H* 04/28/22 05:18: Troponin I High Sens 447 H* 04/28/22 05:18: Hgb 8.4 L, Hct 26.1 L 04/28/22 05:18: Sodium 139, Potassium 4.5, Chloride 109 H, Carbon Dioxide 22.0, Anion Gap 8, BUN 22 H, Creatinine 0.82, Estim Creat Clear Calc 62.08, Est GFR (MDRD) Af Amer 88, Est GFR (MDRD) Non-Af 73, BUN/Creatinine Ratio 26.8 H, Glucose 149 H, Calcium 8.3 L 04/28/22 12:35: Hgb 8.1 L, Hct 25.4 L Radiography Diagnostic Testing: Radiology Impression Abdomen/Pelvis CT 04/27/22 17:44 IMPRESSION: Mild nonspecific fatty infiltration of the liver.. Findings which may be consistent with nonspecific gastritis. No evidence for small bowel obstruction. Incidental finding of large left lower quadrant hernia without evidence for proximal obstruction or incarceration No evidence for focal intraluminal contrast extravasation to suggest acute GI hemorrhage at this time Electronically Signed: Cal Kaur MD at 21:44 EST Reading Location ID and State: [address] [place] [address] , Service support , Echocardiogram 04/28/22 05:55 Interpretation Summary Left ventricular systolic function is normal. The estimated ejection fraction is 60 %. There is severe mitral annular calcification. Extension of the mitral annular calcification onto the base of the posterior mitral valve leaflet. Trivial mitral valve insufficiency. Trivial tricuspid valve insufficiency. Mild aortic stenosis. Right ventricular systolic pressure estimated to be 36 mmHg. Stage 2 diastolic dysfunction. Ordering Physician: Jose Chavez Referring Physician: DELONTE WYMAN Performed By: Meryl Olivas RDCS Physical Exam Const alert, oriented x3, no apparent distress and healthy appearing General Appearance: cooperative, well kempt and well developed Orientation / Consciousness: awake, oriented to person, oriented to place and oriented to time HEENT normocephalic, head/scalp atraumatic and moist oral mucous membranes Eyes PERRL, EOMs intact bilaterally and conjunctivae normal Neck supple, no JVD and thyroid normal General: trachea midline Resp normal respiratory effort, no retractions, no use of accessory muscles and clear to auscultation bilaterally Auscultation: Negative for rales, rhonchi or wheezes Cardio regular rate, regular rhythm, S1 normal heart sound, S2 normal heart sound, no rub and no gallops Cardio Narrative: 2/6 systolic murmur is noted at the left sternal border and apex GI normal to inspection, nondistended, normoactive bowel sounds, soft to palpation, non-tender and non-distended Extremity no clubbing, cyanosis or edema Skin no rashes or lesions noted General Skin Exam: no breakdown Neuro oriented x3, CN's II-XII intact bilaterally, no focal motor deficits and no sensory deficits noted Sensorium / Orientation: awake and alert Speech: speech normal Psych affect normal Assessment & Plan Assessment/Plan (1) Abnormal cardiac enzyme level: (2) Acute upper gastrointestinal bleeding: PLAN: Plan #1. Acute upper GI bleed-secondary to bleeding gastric vessel-patient will remain on a Protonix drip and Carafate, she is also on an octreotide drip #2 acute blood loss anemia-patient's H&H will be monitored, she does not presently need any blood transfusion #3 essential hypertension-patient's blood pressure medications will be held at this time, blood pressure will be monitored #4 atherosclerotic heart disease by history-patient's oral medications will be held at this time due to her upper GI bleed #5 thrombocytosis-patient is on hydroxyurea, she will remain on this medication when she is not n.p.o. #6 hypothyroidism-patient will remain on her thyroid medications when she is not n.p.o. #7 [id number] is seeing the patient, no plans for acute intervention is noted at this time Total clinical time spent by myself addressing the patient's medical problems, reviewing all the data, and collaborating with patient's care team 35 minutes Charges/Coding Visit Charges Inpatient E&M: 58882 Subs Hosp L2
[2022-04-28 18:41] LABS: Hematocrit 26.4 % (37-47); Hemoglobin 8.3 g/dL (12.0-15.0)
--- NOTE | 2022-04-28 19:25 | PN_ITS ---
Subjective Subjective Patient is doing well. Her repeat hemoglobin is up to 8.3. She remains on octreotide and PPI drip. She did have 4 loose bowel movements that were black today. Objective Data Objective Data Vital Signs: Vital Signs Temp Pulse Resp BP Pulse Ox O2 Del Method 98.0 F 81 18 150/80 H 95 Room Air 04/28/22 16:45 04/28/22 15:30 04/28/22 15:30 04/28/22 16:45 04/28/22 15:30 04/28/22 15:30 Oxygen Delivery Method Room Air Weight: 205 lb 4.006 oz Body Mass Index (BMI) 32.1 Intake & Output: Intake and Output for Last 24 Hours 04/26/22 04/27/22 04/28/22 23:59 23:59 23:59 Intake Total 2223 / 2223 1392.96 / 1392.96 Output Total 550 / 550 550 / 550 Balance 1673 / 1673 842.96 / 842.96 Lab / Micro Data Result Diagrams: 04/28/22 18:15 04/28/22 05:18 Labs: Laboratory Results - last 24 hr 04/27/22 20:22: Troponin I High Sens 62 H 04/27/22 22:18: Hgb 9.1 L, Hct 27.6 L 04/27/22 22:18: Troponin I High Sens 201 H* 04/28/22 02:13: Troponin I High Sens 348 H* 04/28/22 05:18: Troponin I High Sens 447 H* 04/28/22 05:18: Hgb 8.4 L, Hct 26.1 L 04/28/22 05:18: Sodium 139, Potassium 4.5, Chloride 109 H, Carbon Dioxide 22.0, Anion Gap 8, BUN 22 H, Creatinine 0.82, Estim Creat Clear Calc 62.08, Est GFR (MDRD) Af Amer 88, Est GFR (MDRD) Non-Af 73, BUN/Creatinine Ratio 26.8 H, Glucose 149 H, Calcium 8.3 L 04/28/22 12:35: Hgb 8.1 L, Hct 25.4 L 04/28/22 18:15: Hgb 8.3 L, Hct 26.4 L Radiography Diagnostic Testing: Radiology Impression Abdomen/Pelvis CT 04/27/22 17:44 IMPRESSION: Mild nonspecific fatty infiltration of the liver.. Findings which may be consistent with nonspecific gastritis. No evidence for small bowel obstruction. Incidental finding of large left lower quadrant hernia without evidence for proximal obstruction or incarceration No evidence for focal intraluminal contrast extravasation to suggest acute GI hemorrhage at this time Electronically Signed: Cal Kaur MD at 21:44 EST Reading Location ID and State: [address] [place] [address] , Service support , Echocardiogram 04/28/22 05:55 Interpretation Summary Left ventricular systolic function is normal. The estimated ejection fraction is 60 %. There is severe mitral annular calcification. Extension of the mitral annular calcification onto the base of the posterior mitral valve leaflet. Trivial mitral valve insufficiency. Trivial tricuspid valve insufficiency. Mild aortic stenosis. Right ventricular systolic pressure estimated to be 36 mmHg. Stage 2 diastolic dysfunction. Ordering Physician: Jose Chavez Referring Physician: DELONTE WYMAN Performed By: Meryl Olivas RDCS Physical Exam Const alert, oriented x3, no apparent distress and healthy appearing General Appearance: cooperative, well kempt and well developed Orientation / Consciousness: awake, oriented to person, oriented to place and oriented to time HEENT normocephalic, head/scalp atraumatic and moist oral mucous membranes Eyes PERRL, EOMs intact bilaterally and conjunctivae normal Neck supple, no JVD and thyroid normal General: trachea midline Resp normal respiratory effort, no retractions, no use of accessory muscles and clear to auscultation bilaterally Auscultation: Negative for rales, rhonchi or wheezes Cardio regular rate, regular rhythm, S1 normal heart sound, S2 normal heart sound, no rub and no gallops Cardio Narrative: 2/6 systolic murmur is noted at the left sternal border and apex GI normal to inspection, nondistended, normoactive bowel sounds, soft to palpation, non-tender and non-distended Extremity no clubbing, cyanosis or edema Skin no rashes or lesions noted General Skin Exam: no breakdown Neuro oriented x3, CN's II-XII intact bilaterally, no focal motor deficits and no sen krysten deficits noted Sensorium / Orientation: awake and alert Speech: speech normal Psych affect normal Assessment & Plan Assessment/Plan (1) Abnormal cardiac enzyme level: PLAN: Patient had a non-ST segment elevation VA likely secondary to a type II event and demand ischemia. 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 Status post endoscopic treatment. Recommend repeat upper endoscopy tomorrow. Continue Protonix drip and octreotide drip overnight Charges/Coding Visit Charges Inpatient E&M: 66010 [facility] L3
[2022-04-28 20:36] VITALS: BP 118/55; PULSE 73; RESP 18; TEMP 36.7; O2SAT 96
[2022-04-29] VITALS (14 sets, daily range): BP systolic 110–149; BP diastolic 50–75; PULSE 69–74; RESP 8–18; TEMP 36.3–36.8; O2SAT 85–100
[2022-04-29] MEDS: 0.9% Saline Lock 10 ML Syringe IV ×2 (02:31→15:08)
[2022-04-29] MEDS: Ondansetron 4 MG/2 ML Vial IV (02:31)
[2022-04-29] MEDS: Acetaminophen 325 MG Tablet 650 MG PO ×2 (04:57→16:43)
[2022-04-29] MEDS: diazePAM 2 MG Tablet PO (05:01)
[2022-04-29] MEDS: Sucralfate 1 GM Tablet PO ×3 (06:23→22:49)
[2022-04-29 06:29] LABS: Absolute Lymphocyte Count 0.91 X10^3/uL (0.83-4.51); Absolute Neutrophil Count 6.1 X10^3/uL (2.0-7.7); Basophil# 0.04 X10^3/uL; Basophil% 0.5 % (0-1); Eosinophil# 0.11 X10^3/uL; Eosinophils% 1.4 % (0-5); Hematocrit 24.2 % (37-47); Hemoglobin 7.8 g/dL (12.0-15.0); Lymphocyte # 0.91 X10^3/ul (0.83-4.51); Lymphocyte % 11.9 % (19-41); Mean Corp Hgb Conc 32.2 g/dL (32-36); Mean Corpuscular Hgb 35.8 pg (27.0-32.0); Mean Platelet Vol. 11.1 fl (6.2-12.0); Monocyte# 0.42 X10^3/uL; Monocyte% 5.5 % (0-10); NRBC Flagged by Analyzer 0 % (0-5); Neutrophil # 6.11 X10^3/uL (2.7-7.7); Neutrophil % 80.3 % (47-70); Platelet Count 430 K/mm3 (150-450); RBC Distribution Width CV 14.2 % (11.6-14.6); RBC Distribution Width SD 56.2 fl (35.1-43.9); Red Blood Count 2.18 M/mm3 (4.2-5.4); White Blood Count 7.6 K/mm3 (4.4-11.0)
[2022-04-29 07:01] LABS: Troponin-I HS 358 pg/mL (3.0-54.0)
--- NOTE | 2022-04-29 09:22 | PN.CARD_ITS ---
Subjective Subjective The patient is awake and alert. She appears to be resting comfortably at the moment. She denies any ongoing chest discomfort. She continues with her upper gastrointestinal bleeding processes and is currently receiving a unit of PRBCs. Objective Data Vital Signs: Vital Signs Temp Pulse Resp BP Pulse Ox O2 Del Method 97.8 F 71 16 141/69 H 100 Room Air 04/29/22 09:07 04/29/22 09:07 04/29/22 09:07 04/29/22 09:07 04/29/22 09:07 04/29/22 09:07 Oxygen Delivery Method Room Air Weight: 205 lb 4.006 oz Body Mass Index (BMI) 32.1 Intake & Output: Intake and Output for Last 24 Hours 04/27/22 04/28/22 04/29/22 23:59 23:59 23:59 Intake Total 2223 / 2223 2441.62 / 2441.62 0 / 0 Output Total 550 / 550 550 / 550 Balance 1673 / 1673 1891.62 / 1891.62 0 / 0 Lab / Micro Data Result Diagrams: 04/29/22 06:00 04/28/22 05:18 Labs: Laboratory Results - last 24 hr 04/27/22 10:42: Blood Type A POSITIVE, Antibody Screen NEGATIVE, Crossmatch See Detail 04/28/22 12:35: Hgb 8.1 L, Hct 25.4 L 04/28/22 18:15: Hgb 8.3 L, Hct 26.4 L 04/29/22 06:00: Troponin I High Sens 358 H* 04/29/22 06:00: WBC 7.6, RBC 2.18 L, Hgb 7.8 L, Hct 24.2 L, MCV 111.0 H, MCH 35.8 H, MCHC 32.2, RDW Std Deviation 56.2 H, RDW Coeff of Lucas 14.2, Plt Count 430, MPV 11.1, Immature Gran % (Auto) 0.400, Neut % (Auto) 80.3 H, Lymph % (Auto) 11.9 L, [place] % (Auto) 5.5, Eos % (Auto) 1.4, Baso % (Auto) 0.5, Absolute Neuts (auto) 6.1, Absolute Lymphs (auto) 0.91, Nucleated RBC % 0 Cardiology Labs/Tests 04/28/22 12:35: Hgb 8.1 L, Hct 25.4 L 04/28/22 18:15: Hgb 8.3 L, Hct 26.4 L 04/29/22 06:00: WBC 7.6, RBC 2.18 L, Hgb 7.8 L, Hct 24.2 L, MCV 111.0 H, MCH 35.8 H, MCHC 32.2, Plt Count 430, MPV 11.1, Immature Gran % (Auto) 0.400, Neut % (Auto) 80.3 H, Lymph % (Auto) 11.9 L, [place] % (Auto) 5.5, Eos % (Auto) 1.4, Baso % (Auto) 0.5, Absolute Neuts (auto) 6.1, Nucleated RBC % 0 Rhythm: Sinus rhythm ECHO: As noted below Radiography Diagnostic Testing: Radiology Impression Echocardiogram 04/28/22 05:55 Interpretation Summary Left ventricular systolic function is normal. The estimated ejection fraction is 60 %. There is severe mitral annular calcification. Extension of the mitral annular calcification onto the base of the posterior mitral valve leaflet. Trivial mitral valve insufficiency. Trivial tricuspid valve insufficiency. Mild aortic stenosis. Right ventricular systolic pressure estimated to be 36 mmHg. Stage 2 diastolic dysfunction. Ordering Physician: Jose Chavez Referring Physician: DELONTE WYMAN Performed By: Meryl Olivas RDCS Physical Exam Const alert, oriented x3, no apparent distress and healthy appearing General Appearance: cooperative, well kempt and well developed Orientation / Consciousness: awake, oriented to person, oriented to place and oriented to time HEENT normocephalic, head/scalp atraumatic and moist oral mucous membranes Eyes PERRL, EOMs intact bilaterally and conjunctivae normal Neck supple, no JVD and thyroid normal General: trachea midline Resp normal respiratory effort, no retractions, no use of accessory muscles and clear to auscultation bilaterally Auscultation: Negative for rales, rhonchi or wheezes Cardio regular rate, regular rhythm, S1 normal heart sound, S2 normal heart sound, no rub and no gallops Cardio Narrative: 2/6 systolic murmur is noted at the left sternal border and apex GI normal to inspection, nondistended, normoactive bowel sounds, soft to palpation, non-tender and non-distended Extremity no clubbing, cyanosis or edema Skin no rashes or lesions noted General Skin Exam: no breakdown Neuro oriented x3, CN's II-XII intact bilaterally, no focal motor deficits and no sensory deficits noted Sensorium / Orientation: awake and alert Speech: speech normal Psych affect normal Assessment & Plan Assessment/Plan (1) Chest pain, unspecified: PLAN: The patient developed chest discomfort. She did describe symptoms that would be concerning for angina pectoris. This did occur in the setting of her acute upper GI bleeding process and anemia. At the present time she is being monitored. Her troponin I levels have now decreased. Her ECG has demonstrated no new acute changes and her previous ST segment changes appear to be resolving towards baseline. She will continue to be followed with respect any recurrent symptoms. Based upon her upper gastrointestinal bleeding process she is not a candidate for aspirin or other antiplatelet or anticoagulant agents at this time. She has been placed back on her beta-ricky therapy, EYAL inhibitor therapy, and her statin. Her transthoracic echocardiogram is as noted. It has been reviewed with her. Depending upon her clinical course consideration might be given as to whether or not she needs additional cardiovascular diagnostic studies, etc., however, at the present time barring an unforeseen urgent emergent event, she does not appear to be an ideal candidate for evaluation in the cardiac catheterization laboratory based upon her ongoing upper gastrointestinal bleeding process and the limits of medications that could be used such as aspirin, antiplatelets, or anticoagulants. (2) Abnormal cardiac enzyme level: PLAN: Her initial high-sensitivity troponin I level is elevated. This appears compatible with a type II event brought out by her acute upper GI bleeding process and anemia. She will continue her noninvasive evaluation. She will continue her medical management taking into consideration her limits with respect to aspirin, antiplatelets, and anticoagulants. (3) CAD (coronary artery disease): PLAN: She does have a history of CAD as previously described. In the past this was reported as nonobstructive and she did not require revascularization therapy. She has continued medical management in the past for cardiovascular risks, etc., as best she can tolerate. Based upon her recent event, at some point in time, if she is ever able to be back on agent such as aspirin or antiplatelets or anticoagulants consideration could be given to reevaluation in the cardiac catheterization laboratory. (4) Mitral valve annular calcification: PLAN: She does have significant mitral annular calcification. This is noted on her echocardiogram and her cardiac catheterization fluoroscopic images. (5) Aortic valve disorder: PLAN: She does have an element of aortic valve disorder which is thought to be compatible with aortic valve stenosis. Her aortic valve stenosis has been reassessed. It appears to remain mild. (6) Near syncope: PLAN: She has had episodes of near syncope. Appears these have occurred with bowel movements and during her episode of hematemesis. These appear to be situational related and compatible with vasovagal mediated type events. (7) Hyperlipidemia: PLAN: She does have a history of hyperlipidemia. She states she has been able to tolerate only low-dose intermittent statin therapy. (8) Essential hypertension: PLAN: She does have a history of hypertension. She will need to continue to have her blood pressure monitored and continued adjustment of medicines as deemed appropriate. (9) Diabetes: QUALIFIERS: Diabetes mellitus type: type 2 Diabetes mellitus chcf insulin use: without chcf use Diabetes mellitus complication status: without complication Qualified Code(s): E11.9 - Type 2 diabetes mellitus without complications PLAN: She does have a history of diabetes mellitus which increases her cardiovascular risks. She will need to continue to follow with her primary care physician for this. (10) Essential thrombocytosis: PLAN: She also has a history of thrombocytosis. She has been following with hematology oncology for this. (11) Acute upper gastrointestinal bleeding: PLAN: She does have what is thought to be an acute upper gastrointestinal bleeding process. She has been evaluated by EGD. Her abdominal/pelvic CT findings are noted. She is currently receiving a unit of PRBCs. She is continuing medical management as per Dr. Lieberman of gastroenterology. Based upon her process she was told she was not a candidate for aspirin therapy thus not a candidate for anticoagulant therapy as well as not a candidate for n onsteroidal anti-inflammatory therapy at this time. (12) Anemia: PLAN: She does have anemia. Her hemoglobin levels have declined to 7.8. She is currently receiving a unit of PRBCs. Hopefully this will help with respect to her oxygen carrying capacity. Addt'l Comments The patient's case was discussed and reviewed with the patient, her family member present, and Dr. Doll. Comment: Time spent with patient's overall evaluation, examination, review of and discussion of cardiovascular studies, answering questions, and discussion with medical staff: 37 minutes. This note was generated using a voice recognition system and there may be incorrect words, spelling or punctuation that were not noted when reviewing the office note prior to saving. Procedure Criteria Type of Procedure Procedure Type: Elective Elective Risks - COVID COVID Risk Discussion: The surgeon/proceduralist and patient have discussed in detail the risk of exposure to and/or potential harm posed by the COVID-19 virus with having a surgery/procedure at this time versus the risk of delaying the surgery/pr ocedure. It is not possible to know either the risk of delaying the surgery or procedure or chance of getting an infection with perfect accuracy, but a joint decision was made between the patient and the surgeon/proceduralist to proceed at this time with the scheduled surgery/procedure as indicated on the consent form.
[2022-04-29] MEDS: Carvedilol 6.25 MG Tablet PO ×2 (10:28→16:45)
[2022-04-29] MEDS: Lactated Ringers 1,000 ML 15 ML IV (12:01)
--- NOTE | 2022-04-29 13:06 | OP.EGD_ITS ---
Patient Name: Nighat Ghotra Procedure Date: 04/29/2022 12:49 PM Date of : 1950 Age: 71 Procedure: Upper GI endoscopy Indications: Melena Providers: Ruddy Lieberman DO Medicines: Monitored Anesthesia Care Patient Profile: This is a 71 year old female. Refer to note in patient chart for documentation of history and physical. Patient has symptoms of acute nausea and acute vomiting. Complications: No immediate complications. Procedure: Pre-Anesthesia Assessment: - Prior to the procedure, a History and Physical was performed, and patient medications and allergies were reviewed. The risks and benefits of the procedure and the sedation options and risks were discussed with the patient. All questions were answered and informed consent was obtained. Patient identification and proposed procedure were verified by the physician in the pre-procedure area. Mental Status Examination: alert and oriented. Airway Examination: normal oropharyngeal airway and neck mobility. Prophylactic Antibiotics: The patient does not require prophylactic antibiotics. Prior Anticoagulants: The patient has taken no previous anticoagulant or antiplatelet agents. ASA Grade Assessment: II - A patient with mild systemic disease. After reviewing the risks and benefits, the patient was deemed in satisfactory condition to undergo the procedure. The anesthesia plan was to use monitored anesthesia care (MAC). Immediately prior to administration of medications, the patient was re-assessed for adequacy to receive sedatives. The heart rate, respiratory rate, oxygen saturations, blood pressure, adequacy of pulmonary ventilation, and response to care were monitored throughout the procedure. The physical status of the patient was re-assessed after the procedure. After obtaining informed consent, the endoscope was passed under direct vision. Throughout the procedure, the patient's blood pressure, pulse, and oxygen saturations were monitored continuously. The gastroscope was introduced through the mouth, and advanced to the second part of duodenum. The upper GI endoscopy was accomplished without difficulty. The patient tolerated the procedure well. Scope In: 12:57:29 PM Scope Out: 12:59:09 PM Total Procedure Duration Time 0 hours 1 minute 40 seconds Findings: The examined esophagus was normal. A small hiatal hernia was present. The cardia and gastric fundus were normal on retroflexion. No other significant abnormalities were identified in a careful examination of the stomach. The second portion of the duodenum was normal. A 5 mm non-bleeding diverticulum was found in the second portion of the duodenum. Impression: - Normal esophagus. - Small hiatal hernia. - Normal second portion of the duodenum. - Non-bleeding duodenal diverticulum. - No specimens collected. Recommendation: - Discharge patient to home. - Resume previous diet. - Continue present medications. Procedure Code(s): --- Professional --- 82724, Esophagogastroduodenoscopy, flexible, transoral; diagnostic, including collection of specimen(s) by brushing or washing, when performed (separate procedure) CPT copyright 2017 [employer]. All rights reserved. The codes documented in this report are preliminary and upon reagent tender helper review may be revised to meet current compliance requirements. Ruddy Lieberman DO 04/29/2022 1:06:14 PM This report has been signed electronically. Number of Addenda: 0 Note Initiated On: 04/29/2022 12:49 PM
--- NOTE | 2022-04-29 13:07 | OP.CCLET_ITS ---
04/29/2022 [address] [place] [address] Re : Upper GI endoscopy procedure for Nighat Ghotra Dear Dr. Galeano This procedure was performed on April. My impressions and recommendations are as follows: Impressions : - Normal esophagus. - Small hiatal hernia. - Normal second portion of the duodenum. - Non-bleeding duodenal diverticulum. - No specimens collected. Recommendations : - Discharge patient to home. - Resume previous diet. - Continue present medications. My findings are described in the full procedure note, which is enclosed. If I can be of further assistance, please feel free to contact me at . Sincerely, Ruddy Lieberman, 04/29/2022 1:06:14 PM This report has been signed electronically.
--- NOTE | 2022-04-29 18:54 | PCM.PN.HOSP ---
Reason for Visit Reason for Visit: Diagnoses Essential (hemorrhagic) thrombocythemia (04/28/22) Anemia, unspecified (04/28/22) Type 2 diabetes mellitus without complications (04/28/22) Hyperlipidemia, unspecified (04/28/22) Rheumatic mitral valve disease, unspecified (04/28/22) Essential (primary) hypertension (04/28/22) Atherosclerotic heart disease of upper [place] coronary artery without angina pectoris (04/28/22) Nonrheumatic aortic valve disorder, unspecified (04/28/22) Gastrointestinal hemorrhage, unspecified (04/28/22) Chest pain, unspecified (04/28/22) Syncope and collapse (04/28/22) Abnormal levels of other serum enzymes (04/28/22) Subjective Subjective Patient was seen and examined today, her hemoglobin today was 7.8 and I decided to transfer fuse 1 unit of packed red blood cells. Patient had an EGD done today which showed no evidence of active bleeding, patient complained this afternoon of feeling weak and I have elected to have PT see and evaluate her. I have stopped her octreotide drip, I discussed her care with gastroenterology today. Objective Data Objective Data Vital Signs: Vital Signs Temp Pulse Resp BP Pulse Ox O2 Del Method 98.2 F 69 18 133/62 H 96 Room Air 04/29/22 15:15 04/29/22 15:15 04/29/22 15:15 04/29/22 15:15 04/29/22 15:15 04/29/22 15:15 Oxygen Delivery Method Room Air Weight: 93.1 kg Body Mass Index (BMI) 32.1 Intake & Output: Intake and Output for Last 24 Hours 04/27/22 04/28/22 04/29/22 23:59 23:59 23:59 Intake Total 2223 / 2223 2441.62 / 2441.62 2861 / 2861 Output Total 550 / 550 550 / 550 750 / 750 Balance 1673 / 1673 1891.62 / 1891.62 2111 / 2111 Lab / Micro Data Result Diagrams: 04/30/22 04:25 04/28/22 05:18 Labs: Laboratory Results - last 24 hr 04/27/22 10:42: Blood Type A POSITIVE, Antibody Screen NEGATIVE, Crossmatch See Detail 04/29/22 06:00: Troponin I High Sens 358 H* 04/29/22 06:00: WBC 7.6, RBC 2.18 L, Hgb 7.8 L, Hct 24.2 L, MCV 111.0 H, MCH 35.8 H, MCHC 32.2, RDW Std Deviation 56.2 H, RDW Coeff of Lucas 14.2, Plt Count 430, MPV 11.1, Immature Gran % (Auto) 0.400, Neut % (Auto) 80.3 H, Lymph % (Auto) 11.9 L, [place] % (Auto) 5.5, Eos % (Auto) 1.4, Baso % (Auto) 0.5, Absolute Neuts (auto) 6.1, Absolute Lymphs (auto) 0.91, Nucleated RBC % 0 Physical Exam Narrative alert, oriented x3, no apparent distress and healthy appearing General Appearance: cooperative, well kempt and well developed Orientation / Consciousness: awake, oriented to person, oriented to place and oriented to time HEENT normocephalic, head/scalp atraumatic and moist oral mucous membranes Eyes PERRL, EOMs intact bilaterally and conjunctivae normal Neck supple, no JVD and thyroid normal General: trachea midline Resp normal respiratory effort, no retractions, no use of accessory muscles and clear to auscultation bilaterally Auscultation: Negative for rales, rhonchi or wheezes Cardio regular rate, regular rhythm, S1 normal heart sound, S2 normal heart sound, no rub and no gallops Cardio Narrative: 2/6 systolic murmur is noted at the left sternal border and apex GI normal to inspection, nondistended, normoactive bowel sounds, soft to palpation, non-tender and non-distended Extremity no clubbing, cyanosis or edema Skin no rashes or lesions noted General Skin Exam: no breakdown Neuro oriented x3, CN's II-XII intact bilaterally, no focal motor deficits and no sensory deficits noted Sensorium / Orientation: awake and alert Speech: speech normal Psych affect normal Assessment & Plan Assessment/Plan (1) Acute upper gastrointestinal bleeding: (2) Abnormal cardiac enzyme level: PLAN: Plan #1. Acute upper GI bleed-secondary to bleeding gastric vessel-patient will remain on a Protonix drip and Carafate I have stopped her octreotide drip #2 acute blood loss anemia-patient's H&H will be monitored, 1 unit of packed red blood cells was transfused #3 essential hypertension-patient's blood pressure medications will be held at this time, blood pressure will be monitored #4 atherosclerotic heart disease by history-patient's oral medications will be held at this time due to her upper GI bleed #5 thrombocytosis-patient is on hydroxyurea, she will remain on this medication when she is not n.p.o. #6 hypothyroidism-patient will remain on her thyroid medications when she is not n.p.o. #7 [id number] is seeing the patient, no plans for acute intervention is noted at this time Total clinical time spent by myself addressing the patient's medical problems, reviewing all the data, and collaborating with patient's care team 36 minutes Charges/Coding Visit Charges Inpatient E&M: 82081 [facility]s [facility] L2
[2022-04-29] MEDS: Pravastatin 20 MG Tablet 10 MG PO (22:48)
--- NOTE | 2022-04-30 00:06 | RAD_ITS ---
INDICATION: o2 demand and dizziness on exertion EXAMINATION/TECHNIQUE: X-RAY - XR Chest 1 View COMPARISON: None. FINDINGS: LINES/DEVICES: None. LUNGS: No consolidation, edema or effusion. No pneumothorax. MEDIASTINUM AND CARDIOVASCULAR STRUCTURES: Cardiac silhouette not enlarged. Central airways and mediastinal contour are unremarkable. BONES AND SOFT TISSUES: Unremarkable. RAD/Chest 1 View (Portable) IMPRESSION: No radiographic evidence of acute cardiopulmonary disease. Electronically Signed: Ramiro Larson MD at 1:17 EST ,
[2022-04-30 01:08] LABS: Hemoglobin 9.1 g/dL (12.0-15.0)
[2022-04-30 01:11] LABS: Blood Gas Specimen Type VEN; O2 Delivery Device Cannula; VBG BASE EXCESS -3 mmol/L (-1.0-3.5); VBG Bicarbonate 21 mmol/L (22-26); VBG PO2 44 mmHg (25-40); VBG SO2 82 % (50-70); VBG TCO2 22 mmol/L (23-33); VBG pCO2 32.3 mmHg (41-51); VBG pH 7.43 (7.32-7.42)
[2022-04-30 02:08] VITALS: BP 145/70; PULSE 76; RESP 18; TEMP 36.9; O2SAT 96
[2022-04-30 04:42] LABS: Absolute Lymphocyte Count 1.09 X10^3/uL (0.83-4.51); Absolute Neutrophil Count 6.7 X10^3/uL (2.0-7.7); Basophil# 0.05 X10^3/uL; Basophil% 0.6 % (0-1); Eosinophil# 0.17 X10^3/uL; Hematocrit 25.5 % (37-47); Hemoglobin 8.2 g/dL (12.0-15.0); Lymphocyte # 1.09 X10^3/ul (0.83-4.51); Lymphocyte % 12.7 % (19-41); Mean Corp Hgb Conc 32.2 g/dL (32-36); Mean Corpuscular Hgb 33.9 pg (27.0-32.0); Mean Corpuscular Volume 105.4 fL (81-99); Mean Platelet Vol. 11.1 fl (6.2-12.0); Monocyte# 0.54 X10^3/uL; Monocyte% 6.3 % (0-10); NRBC Flagged by Analyzer 0 % (0-5); Neutrophil # 6.68 X10^3/uL (2.7-7.7); Platelet Count 415 K/mm3 (150-450); RBC Distribution Width CV 16.5 % (11.6-14.6); RBC Distribution Width SD 63.4 fl (35.1-43.9); Red Blood Count 2.42 M/mm3 (4.2-5.4); White Blood Count 8.6 K/mm3 (4.4-11.0)
[2022-04-30] MEDS: Sucralfate 1 GM Tablet PO ×3 (06:11→16:51)
[2022-04-30 08:15] VITALS: BP 123/70; PULSE 74; RESP 16; TEMP 36.3; O2SAT 94
--- NOTE | 2022-04-30 08:49 | PCM.PN.CARD ---
Subjective Subjective The patient is awake and alert. She has been up in the bedside chair. She states she feels weak. Otherwise she denies any ongoing chest discomfort or difficulty breathing at this time. Objective Data Vital Signs: Vital Signs Temp Pulse Resp BP Pulse Ox O2 Del Method O2 Flow Rate 98.4 F 76 18 145/70 H 96 Nasal Cannula 4 04/30/22 02:08 04/30/22 02:08 04/30/22 02:08 04/30/22 02:08 04/30/22 02:08 04/30/22 02:08 04/30/22 02:08 Oxygen Flow Rate (L/min) 4 Oxygen Delivery Method Nasal Cannula Weight: 205 lb 4.006 oz Body Mass Index (BMI) 32.1 Intake & Output: Intake and Output for Last 24 Hours 04/28/22 04/29/22 04/30/22 23:59 23:59 23:59 Intake Total 2441.62 / 2441.62 2861 / 2861 900 / 900 Output Total 550 / 550 1050 / 1050 Balance 1891.62 / 1891.62 1811 / 1811 900 / 900 Lab / Micro Data Result Diagrams: 04/30/22 04:25 04/28/22 05:18 Labs: Laboratory Results - last 24 hr 04/27/22 10:42: Blood Type A POSITIVE, Antibody Screen NEGATIVE, Crossmatch See Detail 04/30/22 01:00: Hgb 9.1 L 04/30/22 04:25: WBC 8.6, RBC 2.42 L, Hgb 8.2 L, Hct 25.5 L, MCV 105.4 H D, MCH 33.9 H, MCHC 32.2, RDW Std Deviation 63.4 H, RDW Coeff of Lucas 16.5 H, Plt Count 415, MPV 11.1, Immature Gran % (Auto) 0.400, Neut % (Auto) 78.0 H, Lymph % (Auto) 12.7 L, [place] % (Auto) 6.3, Eos % (Auto) 2.0, Baso % (Auto) 0.6, Absolute Neuts (auto) 6.7, Absolute Lymphs (auto) 1.09, Nucleated RBC % 0 ABG Data ABG results: ABG 04/30/22 01:05 Specimen Type STANLEY VBG pH 7.43 H VBG pO2 44 H VBG HCO3 21 L VBG Total CO2 22 L VBG O2 Sat (Calc) 82 H VBG Base Excess -3 L POC Mix VBG pCO2 Pt Tmp 32.3 L O2 Delivery Device Cannula Liter Flow 4.0 Cardiology Labs/Tests 04/30/22 01:00: Hgb 9.1 L 04/30/22 01:05: VBG pH 7.43 H, VBG pO2 44 H, VBG HCO3 21 L, VBG O2 Sat (Calc) 82 H, VBG Base Excess -3 L 04/30/22 04:25: WBC 8.6, RBC 2.42 L, Hgb 8.2 L, Hct 25.5 L, MCV 105.4 H D, MCH 33.9 H, MCHC 32.2, Plt Count 415, MPV 11.1, Immature Gran % (Auto) 0.400, Neut % (Auto) 78.0 H, Lymph % (Auto) 12.7 L, [place] % (Auto) 6.3, Eos % (Auto) 2.0, Baso % (Auto) 0.6, Absolute Neuts (auto) 6.7, Nucleated RBC % 0 Rhythm: Sinus rhythm Radiography Diagnostic Testing: Radiology Impression Chest X-Ray 04/30/22 00:06 IMPRESSION: No radiographic evidence of acute cardiopulmonary disease. Electronically Signed: Ramiro Larson MD at 1:17 EST , Physical Exam Const alert, oriented x3, no apparent distress and healthy appearing General Appearance: cooperative, well kempt and well developed Orientation / Consciousness: awake, oriented to person, oriented to place and oriented to time HEENT normocephalic, head/scalp atraumatic and moist oral mucous membranes Eyes PERRL, EOMs intact bilaterally and conjunctivae normal Neck supple, no JVD and thyroid normal General: trachea midline Resp normal respiratory effort, no retractions, no use of accessory muscles and clear to auscultation bilaterally Auscultation: Negative for rales, rhonchi or wheezes Cardio regular rate, regular rhythm, S1 normal heart sound, S2 normal heart sound, no rub and no gallops Cardio Narrative: 2/6 systolic murmur is noted at the left sternal border and apex GI normal to inspection, nondistended, normoactive bowel sounds, soft to palpation, non-tender and non-distended Extremity no clubbing, cyanosis or edema Skin no rashes or lesions noted General Skin Exam: no breakdown Neuro oriented x3, CN's II-XII intact bilaterally, no focal motor deficits and no sensory deficits noted Sensorium / Orientation: awake and alert Speech: speech normal Psych affect normal Assessment & Plan Assessment/Plan (1) Chest pain, unspecified: PLAN: The patient developed chest discomfort. She did describe symptoms that would be concerning for angina pectoris. This did occur in the setting of her acute upper GI bleeding process and anemia. At the present time she is being monitored. Her troponin I levels have now decreased. Her ECG has demonstrated no new acute changes and her previous ST segment changes appear to be resolving towards baseline. She will continue to be followed with respect any recurrent symptoms. Based upon her upper gastrointestinal bleeding process she is not a candidate for aspirin or other antiplatelet or anticoagulant agents at this time. She has been placed back on her beta-ricky therapy, EYAL inhibitor therapy, and her statin. Her transthoracic echocardiogram is as noted. It has been reviewed with her. Depending upon her clinical course consideration might be given as to whether or not she needs additional cardiovascular diagnostic studies, etc., however, at the present time barring an unforeseen urgent emergent event, she does not appear to be an ideal candidate for evaluation in the cardiac catheterization laboratory based upon her ongoing upper gastrointestinal bleeding process and the limits of medications that could be used such as aspirin, antiplatelets, or anticoagulants. (2) Abnormal cardiac enzyme level: PLAN: Her initial high-sensitivity troponin I level is elevated. This appears compatible with a type II event brought out by her acute upper GI bleeding process and anemia. She will continue her noninvasive evaluation. She will continue her medical management taking into consideration her limits with respect to aspirin, antiplatelets, and anticoagulants. (3) CAD (coronary artery disease): PLAN: She does have a history of CAD as previously described. In the past this was reported as nonobstructive and she did not require revascularization therapy. She has continued medical management in the past for cardiovascular risks, etc., as best she can tolerate. Based upon her recent event, at some point in time, if she is ever able to be back on agent such as aspirin or antiplatelets or anticoagulants consideration could be given to reevaluation in the cardiac catheterization laboratory. (4) Mitral valve annular calcification: PLAN: She does have significant mitral annular calcification. This is noted on her echocardiogram and her cardiac catheterization fluoroscopic images. (5) Aortic valve disorder: PLAN: She does have an element of aortic valve disorder which is thought to be compatible with aortic valve stenosis. Her aortic valve stenosis has been reassessed. It appears to remain mild. (6) Near syncope: PLAN: She has had episodes of near syncope. Appears these have occurred with bowel movements and during her episode of hematemesis. These appear to be situational related and compatible with vasovagal mediated type events. (7) Hyperlipidemia: PLAN: She does have a history of hyperlipidemia. She states she has been able to tolerate only low-dose intermittent statin therapy. (8) Essential hypertension: PLAN: She does have a history of hypertension. She will need to continue to have her blood pressure monitored and continued adjustment of medicines as deemed appropriate. (9) Diabetes: QUALIFIERS: Diabetes mellitus type: type 2 Diabetes mellitus terminal operations supervisor insulin use: without terminal operations supervisor use Diabetes mellitus complication status: without complication Qualified Code(s): E11.9 - Type 2 diabetes mellitus without complications PLAN: She does have a history of diabetes mellitus which increases her cardiovascular risks. She will need to continue to follow with her primary care physician for this. (10) Essential thrombocytosis: PLAN: She also has a history of thrombocytosis. She has been following with hematology oncology for this. (11) Acute upper gastrointestinal bleeding: PLAN: She does have what is thought to be an acute upper gastrointestinal bleeding process. She has been evaluated by EGD. Her abdominal/pelvic CT findings are noted. She did receive 1 unit of PRBCs. Her H&H has increased somewhat. She is continuing medical management as per Dr. Lieberman of gastroenterology. Based upon her process she was told she was not a candidate for aspirin therapy thus not a candidate for anticoagulant therapy as well as not a candidate for nonsteroidal anti-inflammatory therapy at this time. (12) Anemia: PLAN: She does have anemia. Following her PRBCs her hemoglobin appears to be 8.2. Depending upon her future H&H she may need additional PRBCs to assist with her oxygen carrying capacity. Addt'l Comments Overall, at the present time, the patient appears to be without ongoing acute cardiovascular symptoms or adverse cardiovascular events. She will continue her current medical therapy as outlined above. There are no immediate plans for additional cardiovascular diagnostic studies/intervention at this time. She will continue to follow with internal medicine and gastroenterology. She will have future outpatient cardiovascular follow-up. Thank you for allowing me to participate in the care of your patient. Please don't hesitate to call if any issues arise. This note was generated using a voice recognition system and there may be incorrect words, spelling or punctuation that were not noted when reviewing the office note prior to saving. Procedure Criteria Type of Procedure Procedure Type: Elective Elective Risks - COVID COVID Risk Discussion: The surgeon/proceduralist and patient have discussed in detail the risk of exposure to and/or potential harm posed by the COVID-19 virus with having a surgery/procedure at this time versus the risk of delaying the surgery/procedure. It is not possible to know either the risk of delaying the surgery or procedure or chance of getting an infection with perfect accuracy, but a joint decision was made between the patient and the surgeon/proceduralist to proceed at this time with the scheduled surgery/procedure as indicated on the consent form.
[2022-04-30] MEDS: diazePAM 2 MG Tablet PO ×2 (09:01→16:57)
[2022-04-30] MEDS: Carvedilol 6.25 MG Tablet PO ×2 (09:02→16:51)
[2022-04-30] MEDS: Acetaminophen 325 MG Tablet 650 MG PO (09:08)
[2022-04-30] MEDS: 0.9% Saline Lock 10 ML Syringe IV (09:08)
--- NOTE | 2022-04-30 10:28 | CASEMGMT ---
ESTHER was informed by charge auditor that patient and family would like [facility] 4th floor Rehab Unit and of not Rehab then [facility] TCU. SW made referral to [facility]. Await response. Tatiana WANG
[2022-04-30 13:25] VITALS: O2SAT 86
--- NOTE | 2022-04-30 13:28 | CASEMGMT ---
Addendum entered by Tatiana Cannon 04/30/22 15:41: Patient and her decided to go home at d/c. Tatiana WANG Original Note: Physician let SW know that patient and her are thinking patient would be fine for home. SW met with patient and her . Introduced self and role at [facility]. SW discussed Inpatient Rehab vs TCU. Both patient and her feel patient will be fine at home. Originally patient did not want to put so much on her as their dog is also sick. However, dog is doing better and patient's thinks they will be fine at home. They will see how patient does with therapy today, but they are leaning towards home. Tatiana WANG
[2022-04-30 13:57] VITALS: O2SAT 86
--- NOTE | 2022-04-30 16:04 | PCM.DC ---
Discharge Instructions Diet Discharge Diet: No restrictions Activity Discharge Activity: Return to Normal Activity and Use Walker Weight Bearing Status: Full weight bearing Follow Up Care Test Results: Test results from this visit will be discussed in further detail at your follow-up appointment, if applicable. Discharge Plan Admission Admit Date/Time: 04/28/22 04:46 Primary Reason for Your Visit: upper GI bleed Attending Provider: Rasheed Doll Primary Care Provider: Sabra Galeano Consulting Providers: Jose Chavez Instructions Additional Instructions / Restrictions: Recommend you take Ferrous sulfate 325 mg twice a day-start Tuesday Discharge Orders/Prescriptions Prescriptions: New sucralfate 1 gram Tablet 1 g PO 1HR_ACHS Qty: 120 0RF pantoprazole [Protonix] 40 mg tablet,delayed release (DR/EC) 40 mg PO BID Qty: 60 0RF isosorbide mononitrate 30 mg tablet extended release 24 hr 30 mg PO DAILY Qty: 30 1RF Rx Instructions: 1/2 to one daily Continued enalapril maleate 10 mg tablet 10 mg PO BID clobetasol 0.05 % shampoo 1 applic topical DAILY PRN (Reason: PSORASIS) calcitriol 3 mcg/gram ointment 1 applic topical BID PRN (Reason: PSORAISIS) clobetasol [Clobex] 0.05 % lotion 1 applic topical DAILY PRN (Reason: PSORAISIS) halobetasol propionate 0.05 % cream 1 applic topical DAILY PRN (Reason: PSORASIS) ergocalciferol (vitamin D2) 50 mcg (2,000 unit) capsule 50 mcg PO MOWEFR Label Comments: 2-3 times a week Refresh Digital 0.5-1-0.5 % drops 1 drp ophthalmic (eye) 8-12XD PRN (Reason: Dry Eye(S)) hydroxyurea 500 mg capsule 500 mg PO DAILY Qty: 90 5RF diazepam [Valium] 2 mg tablet 2 mg PO TID PRN (Reason: dizziness) Qty: 20 0RF Rx Instructions: 2-4 mg three times a day as needed for dizziness pravastatin 10 mg tablet 10 mg PO TUTHSA levothyroxine 50 mcg tablet 75 mcg PO DAILY Qty: 135 3RF carvedilol 6.25 mg tablet 6.25 mg PO BID Qty: 180 3RF Rx Instructions: must administer with a meal/food Discontinued aspirin 325 mg tablet 325 mg PO DAILY coQ10 (ubiquinol) 100 mg Capsule 100 mg PO [facility] Referrals / Follow Up: Jose Chavez MD [Med Staff - Active Staff] - Within 1 Month Sabra Galeano MD [Primary Care Provider] - Disposition Disposition (needs filled in before D/C Order can be placed): Home, Self Care
--- NOTE | 2022-04-30 16:29 | CASEMGMT ---
YOUSUF MORALES updated by therapy that patient will need new walker at discharge. YOUSUF MORALES received script from hospitalist. Patient prefers [employer]. YOUSUF MORALES sent referral and arranged for deliver of walker to patient's room. Patient declined HHC at discharge. Patient had no further questions or concerns at this time. Patient advised to follow up with PCP.
--- NOTE | 2022-05-11 09:18 | DS.PCM_ITS ---
Providers Date of Admission: 04/28/22 Date of Discharge: 04/30/22 Primary Care Physician: Dr. Sabra Galeano MD Consultations 04/27/22 12:32 Consult: Gastroenterology Routine Consulting Provider: [facility] Reason for Consult: GI bleed EMERGENT Consult: No Notified: Yes Date Notified: 04/27/22 Time Notified: 12:16 Method of Notification: Verbal 04/27/22 20:19 Consult: Cardiology Routine Consulting Provider: Jose Chavez Reason for Consult: chest pain EMERGENT Consult: No Notified: Yes Date Notified: 04/27/22 Time Notified: 20:19 Method of Notification: Verbal Reason For Visit: UPPER GI BLEED, ANEMIA, HX OF THROMBOCYTOSIS Diagnosis Discharge Diagnosis (1) Acute upper gastrointestinal bleeding: Status: Resolved Code(s): K92.2 - Gastrointestinal hemorrhage, unspecified (2) Abnormal cardiac enzyme level: Status: Resolved Code(s): R74.8 - Abnormal levels of other serum enzymes Plan #1. Acute upper GI bleed-secondary to bleeding gastric vessel-patient will remain on a Protonix drip and Carafate I have stopped her octreotide drip #2 acute blood loss anemia transfusion secondary to bleeding gastric vessel- patient's H&H will be monitored, 1 unit of packed red blood cells was transfused #3 essential hypertension-patient's blood pressure medications will be held at this time, blood pressure will be monitored #4 atherosclerotic heart disease by history-patient's oral medications will be held at this time due to her upper GI bleed #5 thrombocytosis-patient is on hydroxyurea, she will remain on this medication when she is not n.p.o. #6 hypothyroidism-patient will remain on her thyroid medications when she is not n.p.o. #7 [id number] is seeing the patient, no plans for acute intervention is noted at this time Total clinical time spent by myself addressing the patient's medical problems, reviewing all the data, and collaborating with patient's care team 36 minutes Medications at Discharge Home Medications enalapril maleate 10 mg tablet 10 mg PO BID 01/05/18 diazepam 2 mg tablet (Valium) 2 mg PO TID PRN dizziness #20 tabs 09/13/20 [id number]-[id number]-[id number] 80 0.5 %-1 %-0.5 % eye drops (Refresh Digital) 1 drp ophthalmic (eye) 8-12XD PRN Dry Eye(S) 08/26/21 clobetasol 0.05 % shampoo 1 applic topical DAILY PRN PSORASIS 08/26/21 ergocalciferol (vitamin D2) 50 mcg (2,000 unit) capsule 50 mcg PO MOWEFR SUPPLEMENT 08/26/21 levothyroxine 50 mcg tablet 75 mcg PO DAILY #135 tabs 08/28/21 carvedilol 6.25 mg tablet 6.25 mg PO BID #180 tabs 11/05/21 calcitriol 3 mcg/gram topical ointment 1 applic topical BID PRN PSORAISIS 11/27/21 clobetasol 0.05 % lotion (Clobex) 1 applic topical DAILY PRN PSORAISIS 11/27/21 halobetasol propionate 0.05 % topical cream 1 applic topical DAILY PRN PSORASIS 11/27/21 hydroxyurea 500 mg capsule 500 mg PO DAILY #90 caps 02/17/22 pravastatin 10 mg tablet 10 mg PO TUTHSA CHOLESTEROL 04/27/22 isosorbide mononitrate 30 mg tablet,extended release 24 hr 30 mg PO DAILY #30 tabs 04/30/22 sucralfate 1 gram tablet 1 g PO 1HR_ACHS #120 tabs 04/30/22 repaglinide 1 mg tablet 1 mg PO TID PRN hyperglycemia #30 tabs 05/04/22 pantoprazole 40 mg tablet,delayed release (Protonix) 40 mg PO BID #60 tabs 05/07/22 Hospital Course Operations None Procedures Blood transfusion and EGD Summary of Care Provided Minutes Spent on Discharge: 31 Hospital Course: This 71-year-old white female was seen in the emergency room at [facility] with complaints of hematemesis along with melanotic stool, patient had an episode of red rectal bleeding approximately 1 week prior and was told to stop her adult aspirin which she takes due to a chronically elevated platelet count. 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 Patient return to PCU and was placed on octreotide drip along with her Protonix drip, cardiac enzymes appear to be elevated and she was felt to have had a non-STEMI, due to her GI bleed, it was recommended that the patient not undergo any invasive testing or cardiac catheterization and be treated medically. Patient was given 1 unit of packed r ed blood cells during her hospitalization, she underwent a second EGD on 04/29/2022 which showed a normal esophagus, normal second portion of the duodenum, nonbleeding duodenal diverticulum, and a small hiatal hernia. On 04/30/2022, patient was seen and examined: On examination she appeared in good health and spirits, she does not appear to be in any distress. Vital signs as documented. Skin warm and dry and without overt rashes. Neck without JVD, thyroid appears normal, trachea is midline, neck is supple. Lungs clear, normal air movement was noted. Heart exam notable for regular rhythm, normal sounds and absence of murmurs, rubs or gallops. Abdomen unremarkable and without evidence of organomegaly, masses, or abdominal aortic enlargement, bowel sounds are present in all 4 quadrants, no abdominal tenderness was noted. Extremities nonedematous, no cyanosis was noted, no clubbing was noted. Neuro: Cranial nerves II through XII are grossly intact, no focal motor deficits were noted, sensation to light touch and pinprick is intact, motor exam 5/5 throughout. Psych: Patient is alert and oriented x3, she does not appear anxious or depressed, she does not appear agitated. Patient appears to be stable for discharge home on 04/30/2022. Weight / BMI Weight Weight: 93.1 kg Body Mass Index (BMI) 32.1 ABG / Lab / Microbiology Data Result Diagrams: 04/30/22 04:25 04/28/22 05:18 D/C Instructions Discharge Diet: No restrictions Weight Bearing Status: Full weight bearing Meaningful Use Info Meaningful Use Diagnoses (Choose all that apply): AMI AMI/Post PCI/Angioplasty Aspirin given w/in 24hrs of arrival?: No Reason no aspirin w/in 24hrs of arrival?: Not a candidate for aspir ASA at discharge?: No Reason ASA not ordered:: Drug Interaction (Not a candidate for aspirin due to upper GI bleed) Antiplatelet Therapy at Discharge:: No Reason Antiplatelet Therapy not ordered:: Secondary to GI bleed Statins at discharge?: Yes Dean/ARB at discharge?: Yes Beta Yue at discharge?: Yes Done w/ Acute WA measure.: Yes Documented LVEF (%): 60 Discharge Plan Admission Admit Date/Time: 04/28/22 04:46 Primary Reason for Your Visit: upper GI bleed Attending Provider: Rasheed Doll Primary Care Provider: Sabra Galeano Consulting Providers: Jose Chavez Instructions Additional Instructions / Restrictions: Recommend you take Ferrous sulfate 325 mg twice a day-start Tuesday Discharge Orders/Prescriptions Prescriptions: New sucralfate 1 gram Tablet 1 g PO 1HR_ACHS Qty: 120 0RF isosorbide mononitrate 30 mg tablet extended release 24 hr 30 mg PO DAILY Qty: 30 1RF Rx Instructions: 1/2 to one daily Continued enalapril maleate 10 mg tablet 10 mg PO BID clobetasol 0.05 % shampoo 1 applic topical DAILY PRN (Reason: PSORASIS) calcitriol 3 mcg/gram ointment 1 applic topical BID PRN (Reason: PSORAISIS) clobetasol [Clobex] 0.05 % lotion 1 applic topical DAILY PRN (Reason: PSORAISIS) halobetasol propionate 0.05 % cream 1 applic topical DAILY PRN (Reason: PSORASIS) ergocalciferol (vitamin D2) 50 mcg (2,000 unit) capsule 50 mcg PO MOWEFR Label Comments: 2-3 times a week Refresh Digital 0.5-1-0.5 % drops 1 drp ophthalmic (eye) 8-12XD PRN (Reason: Dry Eye(S)) hydroxyurea 500 mg capsule 500 mg PO DAILY Qty: 90 5RF diazepam [Valium] 2 mg tablet 2 mg PO TID PRN (Reason: dizziness) Qty: 20 0RF Rx Instructions: 2-4 mg three times a day as needed for dizziness pravastatin 10 mg tablet 10 mg PO TUTHSA levothyroxine 50 mcg tablet 75 mcg PO DAILY Qty: 135 3RF carvedilol 6.25 mg tablet 6.25 mg PO BID Qty: 180 3RF Rx Instructions: must administer with a meal/food Discontinued aspirin 325 mg tablet 325 mg PO DAILY coQ10 (ubiquinol) 100 mg Capsule 100 mg PO TUTHSA No Action repaglinide 1 mg tablet 1 mg PO TID PRN (Reason: hyperglycemia) Qty: 30 0RF pantoprazole [Protonix] 40 mg tablet,delayed release (DR/EC) 40 mg PO BID Qty: 60 2RF Referrals / Follow Up: Jose Chavez MD [Med Staff - Active Staff] - Within 1 Month Sabra Galeano MD [Primary Care Provider] - Disposition Disposition (needs filled in before D/C Order can be placed): Home, Self Care Charges/Coding Visit Charges Inpatient E&M: 24876 Disch Hosp >30min
== END 2022-04-30 17:38 | disposition home or self-care (01) | DRG 377 ==
LOC: ED 11:16 → PCU 11:53
PROVIDERS: Internal Medicine; Internal Medicine Cardiovascular Disease; Internal Medicine Gastroenterology; Admitting Provider Internal Medicine; Emergency Provider Emergency Medicine; PCP Internal Medicine Infectious Disease; Visit Provider Internal Medicine
PROC: 0DJ08ZZ Inspection of Upper Intestinal Tract, Via Natural or Artificial Opening Endoscopic (ICD-10-PCS; CPT 43235; principal; 2022-04-27 16:25)
DX: K31.82 Dieulafoy lesion (hemorrhagic) of stomach and duodenum (principal); I21.A1 Myocardial infarction type 2; D62 Acute posthemorrhagic anemia; E11.40 Type 2 diabetes mellitus with diabetic neuropathy, unspecified; D47.3 Essential (hemorrhagic) thrombocythemia; E06.3 Autoimmune thyroiditis; I35.0 Nonrheumatic aortic (valve) stenosis; I10 Essential (primary) hypertension; I25.10 Atherosclerotic heart disease of native coronary artery without angina pectoris; E78.5 Hyperlipidemia, unspecified; K44.9 Diaphragmatic hernia without obstruction or gangrene; K57.10 Diverticulosis of small intestine without perforation or abscess without bleeding; I34.81 Nonrheumatic mitral (valve) annulus calcification; E66.9 Obesity, unspecified; Z68.32 Body mass index [BMI] 32.0-32.9, adult; Z90.49 Acquired absence of other specified parts of digestive tract; Z79.01 Long term (current) use of anticoagulants; Z79.02 Long term (current) use of antithrombotics/antiplatelets; Z79.82 Long term (current) use of aspirin; Z79.84 Long term (current) use of oral hypoglycemic drugs; Z79.899 Other long term (current) drug therapy
CPT/HCPCS: 36415; 71045; 74177; 80048; 80053; 82803; 83690; 84484; 85014; 85018; 85025; 85610; 85730; 86850; 86900; 86901; 86920; 86922; 93005; 93306; 97110; 97162; 97166; 97530; 97535; 99284; J7030; J7040; J7050; J7120; P9016; Q9967; A4216; J2405; J2916; J3490

== ENCOUNTER → 2022-09-15 | Outpatient (CLI) | payer MEDICARE, OTHER, SELFPAY ==
[2022-09-15 08:13] LABS: AST(SGOT) 21 U/L (15-37); Alanine Aminotransfer ALT/SGPT 20 U/L (13-56); Albumin, Serum 3.8 g/dL (3.2-5.0); Alkaline Phosphatase 69 U/L (45-117); Bilirubin, Direct 0.11 mg/dL (0.00-0.30); Cholesterol 212 mg/dL (200); Globulin 4.1 g/dL (2.2-4.2); High Density Lipoprotein 72 mg/dL; Protein, Total 7.9 g/dL (6.4-8.2); Triglycerides 111 mg/dL; Very Low Density Lipoprotein 22 mg/dL (5-40)
== END | disposition home or self-care (01) ==
LOC: PAVLAB 07:40
PROVIDERS: PCP Internal Medicine Infectious Disease; Referring Provider Nurse Practitioner Gerontology; Visit Provider Nurse Practitioner Gerontology
DX: E78.5 Hyperlipidemia, unspecified (principal)
CPT/HCPCS: 36415; 80061; 80076

== ENCOUNTER → 2022-10-01 | Outpatient (CLI) | payer MEDICARE, OTHER, SELFPAY ==
[2022-10-01 12:28] LABS: Vitamin D,25 Hydroxy 39.2 ng/mL
== END | disposition home or self-care (01) ==
PROVIDERS: PCP Internal Medicine Infectious Disease; Referring Provider Internal Medicine Endocrinology, Diabetes & Metabolism; Visit Provider Internal Medicine Endocrinology, Diabetes & Metabolism
DX: E55.9 Vitamin D deficiency, unspecified (principal); E03.9 Hypothyroidism, unspecified; E06.3 Autoimmune thyroiditis
CPT/HCPCS: 36415; 82306; 84439; 84443

== ENCOUNTER → 2023-06-02 | Outpatient (CLI) | payer MEDICARE, OTHER, SELFPAY ==
[2023-06-02 09:28] LABS: AST(SGOT) 21 U/L (15-37); Alanine Aminotransfer ALT/SGPT 22 U/L (13-56); Albumin, Serum 3.9 g/dL (3.2-5.0); Alkaline Phosphatase 52 U/L (45-117); Bilirubin, Direct 0.17 mg/dL (0.00-0.30); Cholesterol 211 mg/dL (200); High Density Lipoprotein 62 mg/dL; Protein, Total 7.9 g/dL (6.4-8.2); Triglycerides 181 mg/dL; Very Low Density Lipoprotein 36 mg/dL (5-40)
== END | disposition home or self-care (01) ==
PROVIDERS: PCP Internal Medicine Infectious Disease; Referring Provider Nurse Practitioner Gerontology; Visit Provider Nurse Practitioner Gerontology
DX: E78.00 Pure hypercholesterolemia, unspecified (principal)
CPT/HCPCS: 36415; 80061; 80076

== ENCOUNTER → 2023-08-09 | Outpatient (CLI) | payer MEDICARE, OTHER, SELFPAY ==
--- NOTE | 2023-08-09 12:21 | CDU_ITS ---
Reason For Study: visual change right eye Rt. Velocities/BP Lt. Velocities/BP Prox CCA 83.4/14.5 cm/sec. Prox CCA 66.7/13.9 cm/sec. Mid CCA 68.3/15.4 cm/sec. Mid CCA 75.3/13.9 cm/sec. Dist CCA 76.8/14.5 cm/sec. Dist CCA 77.7/17.6 cm/sec. Prox ICA 91.2/18.8 cm/sec. Prox ICA 137.5/20.6 cm/sec. Mid ICA 71.6/18.8 cm/sec. Mid ICA 85.1/23.7 cm/sec. Dist ICA 82.6/23.7 cm/sec. Dist ICA 74.0/20.0 cm/sec. Rt. ICA/CCA = 1.3. Lt. ICA/CCA = 1.8. Prox ECA 187.4/11.1 cm/sec. Prox ECA 243.4/20.4 cm/sec. Rt. Vert. 45.8/10.2 cm/sec. Lt. Vert. 49.5/12.6 cm/sec. Right Extracranial There is intimal thickening but no significant atherosclerotic plaque noted in the right common carotid artery. There is heterogeneous, irregular atherosclerotic plaque noted in the right internal carotid artery. There is heterogeneous, irregular atherosclerotic plaque noted in the right external carotid artery. Antegrade flow is noted in the right vertebral artery. Left Extracranial There is homogeneous, smooth atherosclerotic plaque noted in the left common carotid artery. There is heterogeneous, irregular atherosclerotic plaque noted in the left internal carotid artery. There is heterogeneous, irregular atherosclerotic plaque noted in the left external carotid artery. Antegrade flow is noted in the left vertebral artery. Procedure Carotid Duplex 27592. This is a Carotid Duplex examination using B-mode, color flow and specral Doppler. The exam was diagnostic. Exam performed in department. VL/Carotid Duplex Ultrasound Interpretation Summary Mild (<50%) stenosis right extracranial internal carotid. Mild (<50%) stenosis left extracranial internal carotid. Patent and antegrade vertebrals bilaterally. Ordering Physician: Olivia Watts Referring Physician: Olivia Watts Performed By: Mayito Powell RVT
== END | disposition home or self-care (01) ==
LOC: CVS 12:21
PROVIDERS: PCP Internal Medicine Infectious Disease; Referring Provider Nurse Practitioner Gerontology; Visit Provider Nurse Practitioner Gerontology
DX: R42 Dizziness and giddiness (principal); H53.9 Unspecified visual disturbance
CPT/HCPCS: 93880

== ENCOUNTER → 2024-09-26 | Outpatient (CLI) | payer MEDICARE, OTHER, SELFPAY ==
--- NOTE | 2024-09-26 13:26 | ECHOD_ITS ---
Reason For Study Reason For Study: Dyspnea/SOB Procedure This was a 2D Doppler, Color Flow transthoracic echocardiogram. Technically difficult study, patient scanned supine d/t pain. Exam performed in department. Left Ventricle Normal LV size. Mild concentric left ventricular hypertrophy. The LV ejection fraction is 55 %. Stage 1 diastolic dysfunction. Right Ventricle Normal right ventricle. Atria The left atrium is mildly enlarged. Normal right atrium. Mitral Valve Severe mitral valve annular calcification. Mild aortic valve regurgitation. Tricuspid Valve Normal tricuspid valve. Aortic Valve Mild aortic valve calcification. Mild aortic valve stenosis. Mean peak gradient 8 mmHg. Valve area 1.6 cm??. Pulmonic Valve The pulmonic valve is not well visualized. Mild (1+) pulmonic valve insufficiency. Great Vessels Normal sized aortic root. Pericardium/Pleural No pericardial effusion. MMode/2D Measurements & Calculations LVIDd: 4.4 cm IVSd: 1.4 cm LVOT diam: 1.9 cm LVIDs: 3.0 cm LVPWd: 1.3 cm LVOT area: 2.7 cm2 FS: 32.3 % Ao sinus diam: 3.[address] Junction: 2.3 cm Time Measurements MV dec time: 0.19 sec Doppler Measurements & Calculations MV E max jasbir: 153.2 cm/sec Lat Peak E' Jasbir: 5.9 cm/sec Med Peak E' Jasbir: 7.1 cm/sec MV A max jasbir: 143.2 cm/sec E/E' lat: 25.9 E/E' med: 21.6 MV E/A: 1.1 MV V2 max: 176.8 cm/sec MV P1/2t max jasbir: 173.7 cm/sec Ao V2 max: 189.2 cm/sec MV max P.5 mmHg MV P1/2t: 54.1 msec Ao max P.3 mmHg MV V2 mean: 106.1 cm/sec Ao V2 mean: 130.1 cm/sec MV mean P.3 mmHg MV dec slope: 940.8 cm/sec2 Ao mean P.8 mmHg MV V2 VTI: 39.8 cm MVA(P1/2t): 4.1 cm2 Ao V2 VTI: 42.0 cm AV (velocity ratio): 0.59 MVA(VTI): 1.7 cm2 HARPER(I,D): 1.6 cm2 HARPER(V,D): 1.7 cm2 LV V1 max: 114.6 cm/sec MR max jasbir: 583.2 cm/sec SV(LVOT): 68.5 ml LV V1 max P.3 mmHg MR max P.1 mmHg LV V1 mean P.8 mmHg MR mean jasbir: 441.4 cm/sec LV V1 mean: 78.4 cm/sec MR mean P.9 mmHg LV V1 VTI: 24.9 cm MR VTI: 194.7 cm ECHO/Echo Complete Interpretation Summary Mild concentric left ventricular hypertrophy. The LV ejection fraction is 55 %. Stage 1 diastolic dysfunction. Elevated left atrial filling pressures. The left atrium is mildly enlarged. Severe mitral valve annular calcification. Mild aortic valve regurgitation. Mild aortic valve calcification. Mild aortic valve stenosis. Mean peak gradient 8 mmHg. Valve area 1.6 cm??. Mild (1+) pulmonic valve insufficiency. Ordering Physician: Nagi Jones Referring Physician: Nagi Jones Performed By: Cheko Bonner and Student
== END | disposition home or self-care (01) ==
LOC: CVS 13:25
PROVIDERS: PCP Internal Medicine Infectious Disease; Referring Provider Internal Medicine Cardiovascular Disease; Visit Provider Internal Medicine Cardiovascular Disease
DX: I35.0 Nonrheumatic aortic (valve) stenosis (principal)
CPT/HCPCS: 93306

== ENCOUNTER → 2024-12-20 | Outpatient (CLI) | payer MEDICARE, OTHER, SELFPAY ==
--- NOTE | 2024-12-20 16:37 | CT_ITS ---
PROCEDURE: CT ABD/PELVIS W/WO CONTRAST 12/20/2024 REASON FOR EXAM: ACUTE CYSTITIS/NOCTURIA TECHNIQUE: Procedure Code: [id number] Modality: CT Procedure: CT ABD/PELVIS W/WO CONTRAST Coronal and Sagittal reconstruction series were provided. CONTRAST: Isovue-300 VOLUME: 96 mL One or more dose reduction techniques were used (e.g., Automated exposure control, adjustment of the mA and/or kV according to patient size, use of iterative reconstruction technique. RADIATION DOSE SUMMARY: CTDlvol: 32.95 mGy DLP: 4056.57 mGycm COMPARISON: April 27, 2022 FINDINGS: Lung bases: The lung bases are clear. There is again noted a large amount of calcification or metallic density overlying the left ventricle. This could reflect an old infarct or surgical change. The appearance is similar to the previous study. Liver: The liver is unremarkable. Gallbladder: The gallbladder is surgically absent. Spleen: Unremarkable Pancreas: Normal size without evidence of mass surrounding inflammation or ductal dilation. Adrenals: Unremarkable Kidneys: No hydronephrosis or nephrolithiasis noted. Bladder: There is contrast noted in the urinary bladder. Reproductive Organs: The uterus may be atrophic or surgically absent. Bowel: There is bowel contained in a left abdominal wall hernia. No evidence of bowel obstruction. Appendix: Unremarkable Lymph nodes: No definite adenopathy. Vasculature: Atherosclerotic aortoiliac calcifications are present. Peritoneum / Retroperitoneum: Unremarkable Bones: Degenerative disc disease is noted at L5-S1. Osseous structures are otherwise grossly unremarkable. CT/CT Abd/Pelvis W/WO Contrast IMPRESSION: No acute abnormality. The kidneys and urinary bladder are fairly unremarkable in appearance. Large abdominal wall hernia on the left containing nonobstructed bowel, similar to the previous study. Additional findings as above. Reading [facility]
[2024-12-20 17:06] LABS: CREATININE FINGERSTICK 1.2 mg/dL (0.55-1.02); EGFR FINGERSTICK 49.0000 mL/min (>60)
== END | disposition home or self-care (01) ==
LOC: CT 16:35
PROVIDERS: PCP Internal Medicine Infectious Disease; Referring Provider Urology; Visit Provider Urology
DX: N30.00 Acute cystitis without hematuria (principal); N30.20 Other chronic cystitis without hematuria; R35.1 Nocturia
CPT/HCPCS: 74178; Q9967